=== PATIENT | female | born 1980 | race Hispanic/Latino ===

== ENCOUNTER 2018-05-22 05:36 | Observation (INO) | payer BC ==
[~2018-05-22] VITALS: Ht 160 cm; Wt 84.0 kg
--- OUTSIDE RECORDS SUMMARY | 2018-05-22 05:40 | XMS REPORT ---
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 Info Not Available Non Drug Allergy Encounters Encounter Location Date patient here for sick visit,complains of High blood pressure [facility] Feb 14, 2015 patient here to go over abnormal lab results [facility] Feb 21, 2015 Referral [facility] Apr 22, 2015 Patient here with complaints of esr infection [facility] Jun 06, 2015 patient here for a ER follow up [facility] September 04, 2014 question [facility] November 22, 2014 Patient here for a follow up on sx from gallbladder [facility] November 22, 2014 Problems Problem Type Condition ICD-9 Code Onset Dates Condition Status Problem Hypertension 401.9 Active Problem Hx laparoscopic cholecystectomy V45.89 Active Problem Ovarian cyst 620.2 Active Problem Blood in right ear canal H92.21 Active Problem Hypertension I10 Active Problem Otitis media H66.90 Active Problem Stress at work V62.1 Active Problem Cholecystitis with cholelithiasis 574.10 Active Problem Dizziness 780.4 Active Problem Muscle cramps 729.82 Active Assessment Otitis media H66.90 Active Problem Other malaise and fatigue 780.79 Active Assessment Hypertension I10 Active Problem Obesity (BMI 30.0-34.9) 278.00 Active Assessment Blood in right ear canal H92.21 Active Problem BMI 33.0-33.9,adult V85.33 Active Medications Medication Code System Code Instructions Start Date End Date Status Dosage HydrOXYzine HCl [facility] [address]-85 10 mg Orally three times a day (tid) as needed (prn) Feb 14, 2015 Active as directed [facility] [address]-15 500-125 MG Orally every 12 hrs Jun 06, 2015 Jun 16, 2015 Active as directed Lisinopril-Hydrochlorothiazide [facility] [address]-90 25-20 MG Orally Once a day September 04, 2014 Active 1 tablet Social History Social History Element Qualifiers Date Reported Tobacco Use: . Are you a: never smoker Jun 06, 2015 Use of recreational / street drugs? . Answer: No Jun 06, 2015 Do you have pets? . Status: No Jun 06, 2015 Marital Status: . Single Jun 06, 2015 Caffeine intake? . Status: Yes, What type: Coffee, How often? Daily Jun 06, 2015 New since last visit: none. Jun 06, 2015 Do you exercise? . Answer: Yes, Type: Brian, How often? Weekly Jun 06, 2015 Do you drink alcohol? . Status: Yes, Type: Beer, How often? Once per month Jun 06, 2015 Family history Qualifier Description Comment Date Reported Maternal Grandmother Comment not available Jun 06, 2015 Paternal Grandmother Comment not available Jun 06, 2015 Siblings Comment not available Jun 06, 2015 Maternal Grandfather Comment not available Jun 06, 2015 Children Comment not available Jun 06, 2015 Father alive Comment not available Jun 06, 2015 Paternal Grandfather Comment not available Jun 06, 2015 Mother alive Comment not available Jun 06, 2015 Other: Comment not available Jun 06, 2015 Vital Signs Date/Time: Jun 06, 2015 Weight 204.5 lbs Height 68 in Temperature 98.5 F Cardiac Monitoring Heart Rate 92 /min Blood Pressure Diastolic 89 mm Hg Blood Pressure Systolic 138 mm Hg Summary Purpose [employer] Submission
--- OUTSIDE RECORDS SUMMARY | 2018-05-22 05:40 | XMS REPORT ---
Author Author Joy Mac Organization [employer] Address Unknown Phone Unavailable Care Team Providers Care Jewelry Sales Coordinator Name Role Phone Gerber Macjiha Unavailable Allergies, Adverse Reactions, Alerts Substance Reaction Event Type N.K.D.A. Info Not Available Non Drug Allergy Problems Problem Type Condition Code Onset Dates Condition Status Assessment Dyspnea on exertion R06.09 Active Assessment Essential hypertension I10 Active Assessment Other insomnia G47.09 Active Problem Blood in right ear canal H92.21 Active Assessment Anxiety F41.9 Active Problem Otitis media H66.90 Active Assessment Acute cystitis without hematuria N30.00 Active Problem Left knee pain M25.562 Active Problem Low vitamin D level E55.9 Active Problem Anxiety F41.9 Active Problem Essential hypertension I10 Active Problem Dyspnea on exertion R06.09 Active Problem BMI 33.0-33.9,adult V85.33 Active Problem Obesity (BMI 30.0-34.9) 278.00 Active Problem Other insomnia G47.09 Active Problem Other malaise and fatigue 780.79 Active Problem Tinea corporis B35.4 Active Problem Hyperlipidemia E78.5 Active Problem BMI 30.0-30.9,adult Z68.30 Active Problem Obesity (BMI 30-39.9) E66.9 Active Problem Hx laparoscopic cholecystectomy V45.89 Active Problem Cholecystitis with cholelithiasis 574.10 Active Problem Hypertension 401.9 Active Problem Ovarian cyst 620.2 Active Problem Dizziness 780.4 Active Problem Hypertension I10 Active Problem Stress at work V62.1 Active Problem Muscle cramps 729.82 Active Medications Medication Code System Code Instructions Start Date End Date Status Dosage Paroxetine HCl [facility] [address]-08 20 MG Orally Once a day November 30, 2016 Active 1 tablet in the morning Bactrim DS [facility] [address]-62 800-160 MG Orally Twice a day November 30, 2016 December 05, 2016 Active 1 tablet Pyridium [facility] [address]-88 200 MG Orally Three times a day November 30, 2016 December 02, 2016 Active 1 tablet after meals Lisinopril-Hydrochlorothiazide [facility] [address]-91 25-20 MG Orally Once a day Active 1 tablet Vital Signs Date/Time: November 30, 2016 BMI 31.20 Index Weight 205.2 lbs Height 68 in Temperature 98.4 F Cardiac Monitoring Heart Rate 80 /min Blood Pressure Diastolic 87 mm Hg Blood Pressure Systolic 137 mm Hg Results No Known Results Summary Purpose [employer] Submission
--- OUTSIDE RECORDS SUMMARY | 2018-05-22 05:40 | XMS REPORT | Continuity of Care Document ---
Author Author [facility] Interface Address Unknown Phone Unavailable Problems Problem Status Onset Date Classification Date Reported Comments Source Body mass index 25-29 - overweight 02/06/2018 Diagnosis 02/06/2018 [facility] Posterior rhinorrhea 02/06/2018 Diagnosis 02/06/2018 [facility] Cough 02/06/2018 Diagnosis 02/06/2018 [facility] Essential hypertension 02/06/2018 Diagnosis 02/06/2018 [facility] Acute pharyngitis 02/06/2018 Diagnosis 02/06/2018 [facility] Hypertensive Disorder 02/06/2018 Problem 02/06/2018 [facility] Upper respiratory infection 05/08/2017 Diagnosis 05/08/2017 [facility] Feeling feverish 05/08/2017 Diagnosis 05/08/2017 [facility] Pain in throat 05/08/2017 Diagnosis 05/08/2017 [facility] ACUTE CHOLECYSTITIS Active 11/26/2014 Condition 11/26/2014 [facility] ACUTE CHOLECYSTITIS Active 11/15/2014 [facility] A[facility] PAIN Active 11/15/2014 [facility] Discharge Diagnosis: UTI 08/25/2014 08/27/2014 [facility] Discharge Diagnosis: Dysuria 08/25/2014 08/27/2014 [facility] ABDOMINAL PAIN - GENERAL* Active 08/24/2014 [facility] Cyst, ovarian Resolved Problem 11/20/2014 [facility] HTN (<span [id number]</span>) Resolved Problem 11/20/2014 [facility] Hypertension Resolved Problem 11/20/2014 [facility] Dyspnea on exertion Active Diagnosis 12/01/2016 [facility] Primary Essential hypertension Active Diagnosis 12/01/2016 [facility] Primary Other insomnia Active Diagnosis 12/01/2016 [facility] Primary Blood in right ear canal Active Problem 12/01/2016 [facility] Primary Anxiety Active Diagnosis 12/01/2016 [facility] Primary Otitis media Active Problem 12/01/2016 [facility] Primary Acute cystitis without hematuria Active Diagnosis 12/01/2016 [facility] Primary Left knee pain Active Problem 12/01/2016 [facility] Primary Low vitamin D level Active Problem 12/01/2016 [facility] Primary BMI 33.0-33.9,adult Active Problem 12/01/2016 [facility] Primary Obesity Active Problem 12/01/2016 [facility] Primary Other malaise and fatigue Active Problem 12/01/2016 [facility] Primary Tinea corporis Active Problem 12/01/2016 [facility] Primary Hyperlipidemia Active Problem 12/01/2016 [facility] Primary BMI 30.0-30.9,adult Active Problem 12/01/2016 [facility] Primary Obesity Active Problem 12/01/2016 [facility] Primary Hx laparoscopic cholecystectomy Active Problem 12/01/2016 [facility] Cholecystitis with cholelithiasis Active Problem 12/01/2016 [facility] Primary Hypertension Active Problem 12/01/2016 [facility] Primary Ovarian cyst Active Problem 12/01/2016 [facility] Primary Dizziness Active Problem 12/01/2016 [facility] Primary Hypertension Active Problem 12/01/2016 [facility] Primary Stress at work Active Problem 12/01/2016 [facility] Primary Muscle cramps Active Problem 12/01/2016 [facility] Primary Leukocytosis Active Diagnosis 03/09/2015 [facility] Primary UTI Active Diagnosis 03/09/2015 [facility] Primary Hypokalemia Active Diagnosis 08/26/2015 [facility] Primary Rash Active Diagnosis 02/07/2016 [facility] Primary Vaginal discharge Active Diagnosis 06/24/2016 [facility] Primary CHOLECYSTITIS NOS Active [facility] Medications Medication Details Route Status Patient Instructions Ordering Provider Order Date Source Paroxetine HCl 1 tablet in the morning Orally Active 20 MG Orally Once a day Bubba 11/30/2016 [facility] Bactrim DS 1 tablet Orally Active 800-160 MG Orally Twice a day Bubba 11/30/2016 [facility] Pyridium 1 tablet after meals Orally Active 200 MG Orally Three times a day Bubba 11/30/2016 [facility] Pyridium 1 tablet after meals Orally Active 100 MG Orally Three times a day Bubba 06/23/2016 [facility] Ciprofloxacin HCl 1 tablet Orally Active 500 MG Orally Twice a day Bubba 06/23/2016 [facility] Metronidazole 1 tablet Orally Active 500 MG Orally Twice a day Bubba 06/23/2016 [facility] Ketoconazole 1 application to affected area Externally Active 2 % Externally Once a day Bubba 06/23/2016 [facility] Hydrocortisone 1 application to affected area Externally Active 2.5 % Externally Twice a day Bubba 02/06/2016 [facility] Primary Ergocalciferol 1 capsule Orally Active 59245 UNIT Orally Once a week Bubba 02/06/2016 [facility] Paroxetine HCl 1 tablet in the morning Orally Active 10 mg Orally Once a day [facility] 08/25/2015 [facility] Amoxicillin-Pot Clavulanate as directed Orally Active 500-125 MG Orally every 12 hrs [facility] 06/06/2015 [facility] Bactrim DS 1 tablet Orally Active 800-160 MG Orally twice a day (bid) [facility] 03/08/2015 [facility] Robaxin 1 tablet Orally Active 500 mg Orally three times a day (tid) as needed (prn) [facility] 02/14/2015 [facility] HydrOXYzine HCl as directed Orally Active 10 mg Orally three times a day (tid) as needed (prn) [facility] 02/14/2015 [facility] HydrOXYzine HCl as directed Orally Active 25 MG Orally three times a day (tid) as needed (prn) [facility] 02/14/2015 [facility] LISINOPRIL 20 MG TABS 1 tablet daily Active 11/26/2014 [facility] HYDROCHLOROTHIAZIDE 25 MG TABS 1 tablet daily Active 11/26/2014 [facility] ciprofloxacin 500 mg oral tablet 500 mg=1 tab, PO, Q12H, for UTI, X 3 day, # 6 tab, 0 Refill(s)Special Instructions: for UTI Active 11/17/2014 [facility] pantoprazole 40 mg oral enteric coated tablet 40 mg=1 tab, PO, Before Dinner, # 30 tab, 0 Refill(s) Active 11/17/2014 [facility] lisinopril 20 mg oral tablet 20 mg=1 tab, PO, Daily, # 30 tab, 0 Refill(s) Active 11/17/2014 [facility] Hydrochlorothiazide 25 MG Oral Tablet 25 mg=1 tab, PO, Daily, # 30 tab, 0 Refill(s) Active 11/17/2014 [facility] acetaminophen 325 mg oral tablet 650 mg=2 tab, PO, Q6H, PRN Pain Score 1-3, 0 Refill(s) Active 11/17/2014 [facility] docusate sodium 100 mg oral capsule 100 mg=1 cap, PO, BID, 0 Refill(s) Active 11/17/2014 [facility] tramadol hydrochloride 50 MG Oral Tablet 50 mg=1 tab, PO, Q6H, PRN Pain Score 4-6, # 24 tab, 0 Refill(s) Active 11/17/2014 [facility] Tramadol 50 mg, 1 tab, Route: PO, Drug form: TAB, Q6H, Dosing Weight 102.4, kg, PRN Pain Score 1-3, Start date: 11/17/14 10:55:00, Duration: 30 day, Stop date: 12/17/14 10:54:00Notes: Not to exceed 400mg/day. (Same As: Ultram) Inactive 11/17/2014 [facility] Acetaminophen 325 MG / Hydrocodone Bitartrate 10 MG Oral Tablet [Winigan 10/325] 1 tab, Route: PO, Drug Form: TAB, Dosing Weight 102.4, kg, Q6H, PRN Pain Score 4-6, Start date: 11/17/14 10:54:00, Duration: 30 day, Stop date: 12/17/14 10:53:00Notes: Do not exceed 4gm/day of acetaminophen. (Same as: Winigan 325/10) Inactive 11/17/2014 [facility] Tylenol 650 mg, 2 tab, Route: PO, Drug form: TAB, Q6H, Dosing Weight 102.4, kg, PRN Pain Score 1-3, Start date: 11/17/14 10:54:00, Duration: 30 day, Stop date: 12/17/14 10:53:00Notes: Do not exceed 4 gm/day. (Same as: Tylenol) Inactive 11/17/2014 [facility] potassium chloride 40 mEq, 2 tab, Route: PO, Drug form: ERTAB, ONCE, Dosing Weight 102.4, kg, Start date: 11/17/14 9:38:00, Stop date: 11/17/14 9:38:00Notes: (Same as: K-Dur 20) "Do Not Crush" With food and full glass of water Inactive 11/17/2014 [facility] Prinivil 20 mg, 1 tab, Route: PO, Drug form: TAB, Daily, Start date: 11/17/14 9:00:00, Duration: 30 day, Stop date: 12/16/14 9:00:00Notes: (Same as: Prinivil, Zestril) Inactive 11/17/2014 [facility] Microzide 25 mg, 1 tab, Route: PO, Drug form: TAB, Daily, Start date: 11/17/14 9:00:00, Duration: 30 day, Stop date: 12/16/14 9:00:00Notes: (Same as: Hydrodiuril) With food. Inactive 11/17/2014 [facility] Ofirmev 1,000 mg, 100 mL, Route: IV, Drug form: INJ, Q6H, Dosing Weight 102.4, kg, for > or=50 kg, Start date: 11/16/14 18:00:00, Duration: 1 day, Stop date: 11/17/14 12:00:00Notes: Infuse over 15 minutes Do not exceed 4gm/day of acetaminophen MEDICATION WASTE Product Size: 1000 mg Product Wasted: ___ mg No Longer Active 11/16/2014 [facility] docusate sodium 100 mg oral capsule 100 mg, 1 cap, Route: PO, Drug form: CAP, BID, Dosing Weight 102.4, kg, Start date: 11/16/14 17:00:00, Duration: 30 day, Stop date: 12/16/14 9:00:00Notes: (Same as: Colace) (Do Not Crush) No Longer Active 11/16/2014 [facility] Protonix 40 mg, 1 tab, Route: PO, Drug form: ECTAB, Before Dinner, Dosing Weight 102.4, kg, Start date: 11/16/14 16:30:00, Duration: 30 day, Stop date: 12/15/14 16:30:00Notes: Tablet should not be chewed or crushed. (Same as: Protonix) No Longer Active 11/16/2014 [facility] Ondansetron 4 mg, 2 mL, Route: IVP, Drug form: INJ, ONCE, Dosing Weight 102.4, kg, PRN Nausea & Vomiting, Start date: 11/16/14 12:56:00Notes: (Same as: Zofran) MEDICATION WASTE Product Size: 4 mg Product Wasted: ___ mg Inactive 11/16/2014 [facility] Diphenhydramine 12.5 mg, 0.25 mL, Route: IVP, Drug form: INJ, Q6H, Dosing Weight 102.4, kg, PRN Itching, Start date: 11/16/14 12:56:00, Duration: 30 day, Stop date: 12/16/14 12:55:00Notes: (Same as: Benadryl) Inactive 11/16/2014 [facility] Promethazine 6.25 mg, 0.25 mL, Route: IVPB, ONCE, Dosing Weight 102.4, kg, PRN Nausea & Vomiting, Start date: 11/16/14 12:56:00Notes: Do not give IV push. (Same as: Phenergan) Inactive 11/16/2014 [facility] Meperidine 12.5 mg, 0.25 mL, Route: IVP, Drug form: INJ, Q30Min, Dosing Weight 102.4, kg, PRN Other -See Comment, For shivering, Start date: 11/16/14 12:56:00, Duration: 2 doses or times, Stop date: Limited # of timesNotes: (Same As: Demerol) Inactive 11/16/2014 [facility] Flumazenil 0.2 mg, 2 mL, Route: IVP, Drug form: INJ, PRN, Dosing Weight 102.4, kg, PRN Benzodiazepine Reversal, Initial dose, Start date: 11/16/14 12:56:00, Duration: 30 day, Stop date: 12/16/14 12:55:00Notes: (Same as: Romazicon) Inactive 11/16/2014 [facility] Fentanyl 25 microgram, 0.5 mL, Route: IVP, Drug form: INJ, Q5Min, Dosing Weight 102.4, kg, PRN Pain Score 4-6, Start date: 11/16/14 12:56:00, Duration: 4 doses or times, Stop date: Limited # of timesNotes: (Same as: Sublimaze) Preservative free. Inactive 11/16/2014 [facility] Ketorolac 30 mg, 1 mL, Route: IVP, Drug form: INJ, ONCE, Dosing Weight 102.4, kg, Start date: 11/16/14 12:56:00, Duration: 1 doses or times, Stop date: 11/16/14 12:56:00Notes: (Same as:Toradol) IV bolus must be given >15 seconds. Give IM administration slowly and deeply into the muscle. Not for use > 4 days MEDICATION WASTE Product Size: 30 mg Product Wasted: ___ mg Inactive 11/16/2014 [facility] Naloxone 0.04 mg, 0.1 mL, Route: IVP, Drug form: INJ, Q2MIN, Dosing Weight 102.4, kg, PRN Narcotic Reversal, Start date: 11/16/14 12:56:00, Duration: 8 doses or times, Stop date: Limited # of timesNotes: Same as Narcan Inactive 11/16/2014 [facility] Hydromorphone 0.5 mg, 0.5 mL, Route: IVP, Drug form: INJ, Q5Min, Dosing Weight 102.4, kg, PRN Pain Score 7-10, Start date: 11/16/14 12:56:00, Duration: 4 doses or times, Stop date: Limited # of times Inactive 11/16/2014 [facility] Morphine 2 mg, 1 mL, Route: IVP, Drug form: INJ, Q5Min, Dosing Weight 102.4, kg, PRN Pain Score 4-6, Start date: 11/16/14 12:56:00, Duration: 5 doses or times, Stop date: Limited # of timesNotes: (Same as:MOR Phine Sulfate) Inactive 11/16/2014 [facility] Oxycodone Hydrochloride 1 MG/ML Oral Solution 10 mg, 10 mL, Route: NG, Drug form: LIQ, Q4H, Dosing Weight 102.4, kg, PRN Pain Score 7- 10, Start date: 11/16/14 12:56:00, Duration: 30 day, Stop date: 12/16/14 12:55:00Notes: (Same as: 'Roxicodone) Inactive 11/16/2014 [facility] Calcium Chloride 0.0014 MEQ/ML / Potassium Chloride 0.004 MEQ/ML / Sodium Chloride 0.103 MEQ/ML / Sodium Lactate 0.028 MEQ/ML Injectable Solution 1,000 mL, Rate: 125 ml/hr, Infuse over: 8 hr, Route: IV, Dosing Weight 102.4 kg, Total Volume: 1,000, Start date: 11/16/14 12:56:00, Duration: 30 day, Stop date: 12/16/14 12:55:00 Inactive 11/16/2014 [facility] Oxycodone 10 mg, 2 tab, Route: PO, Drug form: TAB, Q4H, Dosing Weight 102.4, kg, PRN Pain Score 7-10, Start date: 11/16/14 12:56:00, Duration: 30 day, Stop date: 12/16/14 12:55:00Notes: (Same as: Roxicodone) Inactive 11/16/2014 [facility] Acetaminophen 1,000 mg, 100 mL, Route: IVPB, Drug form: INJ, ONCE, Dosing Weight 102.4, kg, PRN Pain Score 1-3, Start date: 11/16/14 12:56:00, Duration: 1 doses or times, Stop date: Limited # of timesNotes: Infuse over 15 minutes Do not exceed 4gm/day of acetaminophen MEDICATION WASTE Product Size: 1000 mg Product Wasted: ___ mg Inactive 11/16/2014 [facility] Sodium Chloride 0.154 MEQ/ML Injectable Solution 1,000 mL, Rate: 125 ml/hr, Infuse over: 8 hr, Route: IV, Dosing Weight 102.4 kg, Total Volume: 1,000, Start date: 11/16/14 12:37:00, Duration: 30 day, Stop date: 12/16/14 12:36:00 No Longer Active 11/16/2014 [facility] Saline Flush 0.9% 10 ml, Route: IVP, Drug Form: INJ, Dosing Weight 102.4, kg, PRN, PRN Line Flush, Start date: 11/16/14 12:37:00, Duration: 30 day, Stop date: 12/16/14 12:36:00Notes: (Same as: BD Posiflush) No Longer Active 11/16/2014 [facility] Morphine 2 mg, 1 mL, Route: IVP, Drug form: INJ, Q3H, Dosing Weight 102.4, kg, PRN Pain Score 4-6, Start date: 11/16/14 12:37:00, Duration: 30 day, Stop date: 12/16/14 12:36:00Notes: (Same as:MORPhine Sulfate) No Longer Active 11/16/2014 [facility] Ondansetron 4 mg, 2 mL, Route: IVP, Drug form: INJ, Q6H, Dosing Weight 102.4, kg, PRN Nausea & Vomiting, Start date: 11/16/14 12:37:00, Duration: 30 day, Stop date: 12/16/14 12:36:00Notes: (Same as: Zofran) MEDICATION WASTE Product Size: 4 mg Product Wasted: ___ mg No Longer Active 11/16/2014 [facility] Acetaminophen 325 MG / Hydrocodone Bitartrate 5 MG Oral Tablet 1 tab, Route: PO, Drug Form: TAB, Dosing Weight 102.4, kg, Q4H, PRN Pain Score 1-3, Start date: 11/16/14 12:37:00, Duration: 30 day, Stop date: 12/16/14 12:36:00Notes: (Same as: Winigan 325/5) Do not exceed 4gm/day of acetaminophen. No Longer Active 11/16/2014 [facility] Ciprofloxacin 400 mg, 200 mL, Route: IVPB, Drug form: INJ, [id number], Dosing Weight 99.091, kg, Priority: Routine, Start date: 11/16/14 12:00:00, Duration: 1 day, Stop date: 11/17/14 0:00:00Notes: Do not refrigerate No Longer Active 11/16/2014 [facility] Lovenox 40 mg, 0.4 mL, Route: SUB-Q, Drug form: INJ, [id number], Dosing Weight 102.4, kg, Start date: 11/16/14 12:00:00, Duration: 30 day, Stop date: 12/15/14 12:00:00Notes: (Same as: Lovenox) No Longer Active 11/16/2014 [facility] Cefoxitin 2 gm, Route: IVPB, ONCE, Dosing Weight 102.4, kg, Start date: 11/16/14 11:30:00, Stop date: 11/16/14 11:30:00 Inactive 11/16/2014 [facility] Prinivil 10 mg, 1 tab, Route: PO, Drug form: TAB, Daily, Start date: 11/16/14 9:00:00, Duration: 30 day, Stop date: 12/15/14 9:00:00Notes: (Same as: Prinivil, Zestril) Inactive 11/16/2014 [facility] Microzide 12.5 mg, 1 cap, Route: PO, Drug form: CAP, Daily, Start date: 11/16/14 9:00:00, Duration: 30 day, Stop date: 12/15/14 9:00:00Notes: (Same as: Microzide) With food. Inactive 11/16/2014 [facility] Hydrochlorothiazide 12.5 MG / Lisinopril 10 MG Oral Tablet 1 tab, Route: PO, Drug Form: TAB, Dosing Weight 99.091, kg, Daily, Start date: 11/16/14 9:00:00, Duration: 30 day, Stop date: 12/15/14 9:00:00 Inactive 11/16/2014 [facility] Flagyl 500 mg, 100 mL, Route: IVPB, Drug form: INJ, Q8H, Dosing Weight 99.091, kg, Priority: Routine, Start date: 11/16/14 8:00:00, Duration: 1 day, Stop date: 11/17/14 0:00:00Notes: (Same as: Flagyl) Avoid alcohol. No Longer Active 11/16/2014 [facility] Morphine 4 mg, 2 mL, Route: IVP, Drug form: INJ, Q4H, Dosing Weight 99.091, kg, PRN Pain Score 7-10, Start date: 11/16/14 3:16:00, Duration: 30 day, Stop date: 12/16/14 3:15:00Notes: (Same as:MORPhine Sulfate) No Longer Active 11/16/2014 [facility] Ondansetron 4 mg, 2 mL, Route: IVP, Drug form: INJ, Q8H, Dosing Weight 99.091, kg, PRN Nausea & Vomiting, Start date: 11/16/14 3:16:00, Duration: 30 day, Stop date: 12/16/14 3:15:00Notes: (Same as: Zofran) MEDICATION WASTE Product Size: 4 mg Product Wasted: ___ mg No Longer Active 11/16/2014 [facility] Sodium Chloride 0.154 MEQ/ML Injectable Solution 1,000 mL, Rate: 125 ml/hr, Infuse over: 8 hr, Route: IV, Dosing Weight 99.091 kg, Total Volume: 1,000, Start date: 11/16/14 3:16:00, Duration: 30 day, Stop date: 12/16/14 3:15:00 No Longer Active 11/16/2014 [facility] Saline Flush 0.9% 10 ml, Route: IVP, Drug Form: INJ, Dosing Weight 99.091, kg, PRN, PRN Line Flush, Start date: 11/16/14 3:16:00, Duration: 30 day, Stop date: 12/16/14 3:15:00Notes: (Same as: BD Posiflush) No Longer Active 11/16/2014 [facility] Ciprofloxacin 400 mg, Route: IVPB, ONCE, Dosing Weight 99.091, kg, Priority: STAT, Start date: 11/15/14 23:40:00, Stop date: 11/15/14 23:40:00 No Longer Active 11/16/2014 [facility] Metronidazole 500 mg, 100 mL, Route: IVPB, Drug form: INJ, ONCE, Dosing Weight 99.091, kg, Priority: STAT, Start date: 11/15/14 23:40:00, Stop date: 11/15/14 23:40:00Notes: (Same as: Flagyl) Avoid alcohol. No Longer Active 11/16/2014 [facility] Ondansetron 4 mg, 2 mL, Route: IVP, Drug form: INJ, ONCE, Dosing Weight 99.091, kg, Priority: STAT, Start date: 11/15/14 21:09:00, Stop date: 11/15/14 21:09:00Notes: (Same as: Zofran) MEDICATION WASTE Product Size: 4 mg Product Wasted: ___ mg Inactive 11/16/2014 [facility] Famotidine 20 mg, 2 mL, Route: IVP, Drug form: INJ, ONCE, Dosing Weight 99.091, kg, Priority: STAT, Start date: 11/15/14 21:09:00, Stop date: 11/15/14 21:09:00Notes: (Same as: Pepcid) Can be dilute in 5-10cc NS IVP: Slow IV push over at least 2 minutes. Inactive 11/16/2014 [facility] Morphine 4 mg, 2 mL, Route: IVP, Drug form: INJ, ONCE, Dosing Weight 99.091, kg, Priority: STAT, Start date: 11/15/14 21:09:00, Stop date: 11/15/14 21:09:00Notes: (Same as:MORPhine Sulfate) Inactive 11/16/2014 [facility] Sodium Chloride 0.154 MEQ/ML Injectable Solution 1,000 mL, 1000 ml/hr, Infuse Over: 1 hr, Route: IV, 1,000, Drug form: INJ, ONCE, Priority: STAT, Dosing Weight 99.091 kg, Start date: 11/15/14 21:09:00, Duration: 1 doses or times, Stop date: 11/15/14 21:09:00 Inactive 11/16/2014 [facility] Saline Flush 0.9% 10 mL, Route: IVP, Drug Form: INJ, Dosing Weight 99.091, kg, PRN, PRN Line Flush, Start date: 11/15/14 21:09:00, Duration: 30 day, Stop date: 12/15/14 21:08:00Notes: (Same as: BD Posiflush) No Longer Active 11/16/2014 [facility] Lisinopril-Hydrochlorothiazide 1 tablet Orally Active 25-20 MG Orally Once a day [facility] 09/04/2014 [facility] Nitrofurantoin 100 MG Oral Capsule [Macrodantin] 100 mg=1 cap, PO, QID, # 40 cap, 0 Refill(s) Active 08/25/2014 [facility] Amlodipine 5 MG Oral Tablet amlodipine 5 mg tablet TAKE ONE (1) TABLET(S) BY MOUTH ONCE A DAY. Active [facility] benzonatate 200 MG Oral Capsule benzonatate 200 mg capsule Take 1 capsule 3 times a day by oral route as needed. Active [facility] Cholecalciferol 28222 UNT Oral Capsule cholecalciferol (vitamin D3) 50,000 unit capsule TAKE ONE (1) CAPSULE(S) BY MOUTH EVERY WEEK. Active [facility] Levothyroxine Sodium 0.05 MG Oral Tablet levothyroxine 50 mcg tablet TAKE ONE (1) TABLET(S) BY MOUTH ONCE A DAY. Active [facility] Brompheniramine Maleate 0.4 MG/ML / Dextromethorphan Hydrobromide 2 MG/ML / Pseudoephedrine Hydrochloride 6 MG/ML Oral Solution [Bromfed DM] Bromfed DM 2 mg-30 mg-10 mg/5 mL syrup Take 10 mL every 4 hours by oral route as needed for 10 days. Active [facility] desogestrel-e.estradiol 0.15 mg-0.02 mg(21)/e.estrad 0.01 mg(5) tablet desogestrel-e.estradiol 0.15 mg-0.02 mg(21)/e.estrad 0.01 mg(5) tablet TAKE ONE (1) TABLET(S) BY MOUTH ONCE A DAY. Active [facility] Lidocaine Hydrochloride 20 MG/ML Mucous Membrane Topical Solution Lidocaine Viscous 2 % mucosal solution Take 15 mL every 6 hours by oral route as needed for 7 days. Active [facility] Lisinopril-Hydrochlorothiazide 1 tablet Orally Active 25-20 MG Orally Once a day [facility] Lupron Depot Unknown NA Active [facility] Paroxetine HCl 1 tablet in the morning Orally Active 20 mg Orally Once a day [facility] Lisinopril-Hydrochlorothiazide TAKE ONE (1) TABLET(S) BY MOUTH ONCE A DAY. NA Active 20-25 MG [facility] HydrOXYzine HCl as directed Orally Active 25 MG Orally three times a day (tid) as needed (prn) [facility] Lisinopril-Hydrochlorothiazide 1 tablet Orally Active 25-20 MG Orally Once a day [facility] Allergies, Adverse Reactions, Alerts Substance Category Reaction Severity Reaction type Status Date Reported Comments Source N.K.D.A. Adverse Reaction Info Not Available Adverse Reaction Active 11/30/2016 [facility] Immunizations Immunization Date Given Site Status Last Updated Comments Source Tdap 01/26/2017 completed [facility] FLU SHOT 3 & UP 06/23/2016 [facility] Rocephin 02/21/2015 completed [facility] Results Order Name Results Value Reference Range Date Interpretation Comments Source Influenza A negative 02/06/2018 [facility] Influenza B negative 02/06/2018 [facility] RESULT negative 02/06/2018 [facility] SWAB LOCATION Left and Right tonsillar pillars 02/06/2018 [facility] RESULT negative 05/08/2017 [facility] SWAB LOCATION Left and Right tonsillar pillars 05/08/2017 [facility] Influenza A negative 05/08/2017 [facility] Influenza B negative 05/08/2017 [facility] CHEM PANEL Phosphorus 1.7 mg/dL 2.5 - 4.5 11/17/2014 [facility] CHEM PANEL Magnesium Lvl 2.1 mg/dL 1.8 - 2.4 11/17/2014 [facility] ELECTROLYTES Chloride Lvl 105 meq/L 95 - 109 11/17/2014 [facility] ELECTROLYTES Sodium Lvl 137 meq/L 135 - 145 11/17/2014 [facility] ELECTROLYTES Potassium Lvl 3.2 meq/L 3.5 - 5.1 11/17/2014 [facility] ELECTROLYTES eGFR 115 mL/min/1.73m2 11/17/2014 1Result Comment: The eGFR is calculated using the CKD-EPI formula. In most young, healthy individuals the eGFR will be >90 mL/min/1.73m2. The eGFR declines with age. An eGFR of 60-89 may be normal in some populations, particularly the elderly, for whom the CKD-EPI formula has not been extensively validated. Use of the eGFR is not recommended in the following populations: Individuals with unstable creatinine concentrations, including patients and those with serious co-morbid conditions. Patients with extremes in muscle mass or diet. The data above are obtained from the National Kidney Disease Education Program (NKDEP) which additionally recommends that when the eGFR is used in patients with extremes of body mass index for purposes of drug dosing, the eGFR should be multiplied by the estimated BMI. [facility] ELECTROLYTES Total Protein 6.4 g/dL 6.4 - 8.4 11/17/2014 [facility] ELECTROLYTES ALT 79 unit/L 0 - 65 11/17/2014 [facility] ELECTROLYTES Creatinine Lvl 0.7 mg/dL 0.5 - 1.4 11/17/2014 [facility] ELECTROLYTES BUN 6 mg/dL 7 - 22 11/17/2014 [facility] ELECTROLYTES CO2 24 meq/L 24 - 32 11/17/2014 [facility] ELECTROLYTES Calcium Lvl 7.4 mg/dL 8.5 - 10.5 11/17/2014 [facility] ELECTROLYTES AGAP 11.2 meq/L 10.0 - 20.0 11/17/2014 [facility] ELECTROLYTES Glucose Lvl 100 mg/dL 70 - 99 11/17/2014 3Interpretive Data: Adult reference range values reflect the clinical guidelines of the [place] [employer]. [facility] ELECTROLYTES Globulin 3.3 g/dL 2.0 - 4.0 11/17/2014 [facility] ELECTROLYTES A/G Ratio 0.9 0.7 - 1.6 11/17/2014 [facility] ELECTROLYTES Albumin Lvl 3.1 g/dL 3.5 - 5.0 11/17/2014 [facility] ELECTROLYTES Bili Total 1.6 mg/dL 0.2 - 1.3 11/17/2014 [facility] ELECTROLYTES B/C Ratio 9 6 - 25 11/17/2014 [facility] ELECTROLYTES Alk Phos 41 unit/L 39 - 136 11/17/2014 [facility] ELECTROLYTES AST 27 unit/L 0 - 37 11/17/2014 [facility] HEMATOLOGY Monocytes # 0.7 K/CMM 0.0 - 0.8 11/17/2014 [facility] HEMATOLOGY Basophils 0.2 % 0.0 - 1.0 11/17/2014 [facility] HEMATOLOGY Eosinophils 0.1 % 0.0 - 4.0 11/17/2014 [facility] HEMATOLOGY Lymphocytes # 1.9 K/CMM 1.0 - 5.5 11/17/2014 [facility] HEMATOLOGY Segs-Bands # 10.7 K/CMM 1.5 - 8.1 11/17/2014 [facility] HEMATOLOGY Monocytes 5.5 % 2.0 - 12.0 11/17/2014 [facility] HEMATOLOGY Lymphocytes 14.5 % 20.0 - 40.0 11/17/2014 [facility] HEMATOLOGY Segs 79.7 % 45.0 - 75.0 11/17/2014 [facility] HEMATOLOGY MPV 9.6 fL 7.4 - 10.4 11/17/2014 [facility] HEMATOLOGY Platelet 177 K/CMM 133 - 450 11/17/2014 [facility] HEMATOLOGY MCV 93.7 fL 80.0 - 98.0 11/17/2014 [facility] HEMATOLOGY Hct 33.9 % 36.0 - 48.0 11/17/2014 [facility] HEMATOLOGY MCH 32.1 pg 27.0 - 31.0 11/17/2014 [facility] HEMATOLOGY RDW 13.6 % 11.5 - 14.5 11/17/2014 [facility] HEMATOLOGY MCHC 34.3 g/dL 32.0 - 36.0 11/17/2014 [facility] HEMATOLOGY Hgb 11.6 g/dL 12.0 - 16.0 11/17/2014 [facility] HEMATOLOGY RBC 3.62 M/CMM 4.20 - 5.40 11/17/2014 [facility] HEMATOLOGY WBC 13.4 K/CMM 3.7 - 10.4 11/17/2014 [facility] LIPIDS Chol 92 mg/dL <=199 mg/dL 11/17/2014 [facility] LIPIDS Trig 62 mg/dL <=149 mg/dL 11/17/2014 [facility] LIPIDS VLDL 12 11/17/2014 [facility] LIPIDS LDL (Calculated) 24 mg/dL <=99 mg/dL 11/17/2014 [facility] LIPIDS CHD Risk 1.64 3.90 - 5.80 11/17/2014 [facility] LIPIDS HDL 56 mg/dL >=61 mg/dL 11/17/2014 [facility] SPECIAL CHEMISTRY Hgb A1C 5.9 % <=5.6 % 11/17/2014 [facility] THYROID PANEL TSH 1.310 uIU/mL 0.360 - 3.740 11/17/2014 [facility] CHEM PANEL Amylase Lvl 27 unit/L 25 - 115 11/16/2014 [facility] CHEM PANEL Lipase Lvl 134 unit/L 73 - 393 11/16/2014 [facility] CHEM PANEL AST 16 unit/L 0 - 37 11/16/2014 [facility] CHEM PANEL Alk Phos 50 unit/L 39 - 136 11/16/2014 [facility] CHEM PANEL Glucose Lvl 116 mg/dL 70 - 99 11/16/2014 4Interpretive Data: Adult reference range values reflect the clinical guidelines of the [place] [employer]. [facility] CHEM PANEL Bili Total 1.1 mg/dL 0.2 - 1.3 11/16/2014 [facility] CHEM PANEL BUN 8 mg/dL 7 - 22 11/16/2014 [facility] CHEM PANEL Total Protein 8.5 g/dL 6.4 - 8.4 11/16/2014 [facility] CHEM PANEL ALT 33 unit/L 0 - 65 11/16/2014 [facility] CHEM PANEL eGFR 121 mL/min/1.73m2 11/16/2014 2Result Comment: The eGFR is calculated using the CKD-EPI formula. In most young, healthy individuals the eGFR will be >90 mL/min/1.73m2. The eGFR declines with age. An eGFR of 60-89 may be normal in some populations, particularly the elderly, for whom the CKD-EPI formula has not been extensively validated. Use of the eGFR is not recommended in the following populations: Individuals with unstable creatinine concentrations, including patients and those with serious co-morbid conditions. Patients with extremes in muscle mass or diet. The data above are obtained from the National Kidney Disease Education Program (NKDEP) which additionally recommends that when the eGFR is used in patients with extremes of body mass index for purposes of drug dosing, the eGFR should be multiplied by the estimated BMI. [facility] CHEM PANEL Potassium Lvl 3.7 meq/L 3.5 - 5.1 11/16/2014 [facility] CHEM PANEL Sodium Lvl 137 meq/L 135 - 145 11/16/2014 [facility] CHEM PANEL Creatinine Lvl 0.6 mg/dL 0.5 - 1.4 11/16/2014 [facility] CHEM PANEL Albumin Lvl 4.1 g/dL 3.5 - 5.0 11/16/2014 [facility] CHEM PANEL Chloride Lvl 104 meq/L 95 - 109 11/16/2014 [facility] CHEM PANEL CO2 23 meq/L 24 - 32 11/16/2014 [facility] CHEM PANEL Calcium Lvl 8.6 mg/dL 8.5 - 10.5 11/16/2014 [facility] CHEM PANEL A/G Ratio 0.9 0.7 - 1.6 11/16/2014 [facility] CHEM PANEL Globulin 4.4 g/dL 2.0 - 4.0 11/16/2014 [facility] CHEM PANEL B/C Ratio 13 6 - 25 11/16/2014 [facility] CHEM PANEL AGAP 13.7 meq/L 10.0 - 20.0 11/16/2014 [facility] HEMATOLOGY Monocytes # 0.7 K/CMM 0.0 - 0.8 11/16/2014 [facility] HEMATOLOGY Basophils # 0.1 K/CMM 0.0 - 0.2 11/16/2014 [facility] HEMATOLOGY Basophils 0.3 % 0.0 - 1.0 11/16/2014 [facility] HEMATOLOGY Monocytes 3.2 % 2.0 - 12.0 11/16/2014 [facility] HEMATOLOGY Lymphocytes # 1.2 K/CMM 1.0 - 5.5 11/16/2014 [facility] HEMATOLOGY Segs 91.4 % 45.0 - 75.0 11/16/2014 [facility] HEMATOLOGY Lymphocytes 5.1 % 20.0 - 40.0 11/16/2014 [facility] HEMATOLOGY Segs-Bands # 21.1 K/CMM 1.5 - 8.1 11/16/2014 [facility] HEMATOLOGY WBC 23.1 K/CMM 3.7 - 10.4 11/16/2014 [facility] HEMATOLOGY RBC 4.66 M/CMM 4.20 - 5.40 11/16/2014 [facility] HEMATOLOGY Hgb 14.8 g/dL 12.0 - 16.0 11/16/2014 [facility] HEMATOLOGY MCV 92.3 fL 80.0 - 98.0 11/16/2014 [facility] HEMATOLOGY MCH 31.8 pg 27.0 - 31.0 11/16/2014 [facility] HEMATOLOGY MCHC 34.5 g/dL 32.0 - 36.0 11/16/2014 [facility] HEMATOLOGY Hct 43.0 % 36.0 - 48.0 11/16/2014 [facility] HEMATOLOGY MPV 9.6 fL 7.4 - 10.4 11/16/2014 [facility] HEMATOLOGY RDW 13.6 % 11.5 - 14.5 11/16/2014 [facility] HEMATOLOGY Platelet 224 K/CMM 133 - 450 11/16/2014 [facility] URINE AND STOOL UA Color Red 11/16/2014 [facility] URINE AND STOOL UA Urobilinogen <=1.0 mg/dL 0.1 - 1.0 11/16/2014 [facility] URINE AND STOOL UA Leuk Est Moderate *ABN* (11/15/14 9:50 PM) Negative 11/16/2014 [facility] URINE AND STOOL UA Nitrite Negative (11/15/14 9:50 PM) Negative 11/16/2014 [facility] URINE AND STOOL UA Blood Large *ABN* (11/15/14 9:50 PM) Negative 11/16/2014 [facility] URINE AND STOOL UA Bili Negative *NA* (11/15/14 9:50 PM) Negative 11/16/2014 [facility] URINE AND STOOL UA Bacteria Occasional /HPF None Seen /HPF 11/16/2014 [facility] URINE AND STOOL UA RBC null 0 - 2 11/16/2014 [facility] URINE AND STOOL UA WBC 48 /HPF 0 - 5 11/16/2014 [facility] URINE AND STOOL UA Sq Epi Occasional /LPF Few /LPF 11/16/2014 [facility] URINE AND STOOL UA Protein 100 mg/dL Negative mg/dL 11/16/2014 [facility] URINE AND STOOL UA pH 7.0 5.0 - 8.0 11/16/2014 [facility] URINE AND STOOL UA Spec Grav 1.003 <=1.030 11/16/2014 [facility] URINE AND STOOL UA Turbidity Clear (11/15/14 9:50 PM) Clear 11/16/2014 [facility] URINE AND STOOL UA Ketones Negative mg/dL Negative mg/dL 11/16/2014 [facility] URINE AND STOOL UA Glucose Negative mg/dL Negative mg/dL 11/16/2014 [facility] URINE CHEM U Preg Negative (11/15/14 9:50 PM) Negative 11/16/2014 [facility] Abdomen RUQ US Abdomen RUQ US PROCEDURE: Abdomen RUQ US REASON FOR EXAM: See Clinic Indication CLINICAL INFORMATION Abdominal pain, acute COMPARISON: None. TECHNIQUE: Grayscale and limited color sonographic evaluation of the right upper quadrant of the abdomen and gallbladder region was performed with standard technique. FINDINGS: LIVER: The visualized liver shows normal size, contour, and morphology with increased parenchymal echo texture. BILE DUCTS: The intrahepatic and extrahepatic bile ducts are not dilated with the common bile duct measuring 4 mm. The distal common bile duct is not well seen. GALLBLADDER: Gallstone with slight gallbladder wall thickening. PANCREAS: The pancreas body is normal, the head and tail are obscured by bowel gas. KIDNEY: The right kidney measures 12.2 x 5.5 x 6.0 cm in length. The right renal cortical thickness measures 1.1 cm. There is normal renal contour and morphology, with normal parenchymal echotexture. There is no hydronephrosis. AORTA AND INFERIOR VENA CAVA: Not well seen. ASCITES: There is no right upper quadrant abdominal ascites. IMPRESSION: 1. Cholelithiasis with a thickened gallbladder wall. Consider a HIDA scan to assess for cholecystitis. 2. Echogenic liver secondary to fatty infiltration or hepatocellular disease. SL: 14 11/15/2014 - - Read by: Yung Monson MD Dictated Date/time: 11/15/14 22:09 Electronically Signed by: Yung Monson MD 11/15/14 22:12 FINAL REPORT [facility] URINE AND STOOL UA Urobilinogen <=1.0 mg/dL 0.1 - 1.0 08/25/2014 [facility] URINE AND STOOL UA Color Ltyellow 08/25/2014 [facility] URINE AND STOOL UA Nitrite Negative (08/25/14 1:04 AM) Negative 08/25/2014 [facility] URINE AND STOOL UA Sq Epi Occasional /LPF Few /LPF 08/25/2014 [facility] URINE AND STOOL UA Leuk Est Trace *ABN* (08/25/14 1:04 AM) Negative 08/25/2014 [facility] URINE AND STOOL UA RBC 7 /HPF 0 - 2 08/25/2014 [facility] URINE AND STOOL UA WBC 9 /HPF 0 - 5 08/25/2014 [facility] URINE AND STOOL UA Blood Negative (08/25/14 1:04 AM) Negative 08/25/2014 [facility] URINE AND STOOL UA Ketones Negative mg/dL Negative mg/dL 08/25/2014 [facility] URINE AND STOOL UA Bili Negative *NA* (08/25/14 1:04 AM) Negative 08/25/2014 [facility] URINE AND STOOL UA pH 6.0 5.0 - 8.0 08/25/2014 [facility] URINE AND STOOL UA Glucose 50 mg/dL Negative mg/dL 08/25/2014 [facility] URINE AND STOOL UA Protein 30 mg/dL Negative mg/dL 08/25/2014 [facility] URINE AND STOOL UA Turbidity Clear (08/25/14 1:04 AM) Clear 08/25/2014 [facility] URINE AND STOOL UA Spec Grav 1.016 <=1.030 08/25/2014 [facility] URINE CHEM U Preg Negative (08/25/14 1:04 AM) Negative 08/25/2014 [facility] Vital Signs Vital Sign Value Date Comments Source Diastolic (mm Hg) 80 02/06/2018 [facility] Height 68 02/06/2018 [facility] Systolic (mm Hg) 122 02/06/2018 [facility] Weight 183 02/06/2018 [facility] Diastolic (mm Hg) 88 05/08/2017 [facility] Height 68 05/08/2017 [facility] Systolic (mm Hg) 128 05/08/2017 [facility] Weight 200 05/08/2017 [facility] Weight 205.2 11/30/2016 [facility] Primary Height 68 11/30/2016 [facility] Primary Temperature Oral (F) 98.4 F 11/30/2016 [facility] Primary Heart Rate 80 11/30/2016 [facility] Primary Diastolic (mm Hg) 87 11/30/2016 [facility] Primary Systolic (mm Hg) 137 11/30/2016 [facility] Primary Weight 203.0 08/27/2016 [facility] Primary Height 68 08/27/2016 [facility] Primary Temperature Oral (F) 97.8 F 08/27/2016 [facility] Primary Heart Rate 72 08/27/2016 [facility] Primary Diastolic (mm Hg) 75 08/27/2016 [facility] Primary Systolic (mm Hg) 133 08/27/2016 [facility] Primary Weight 207.3 06/23/2016 [facility] Primary Height 68 06/23/2016 [facility] Primary Temperature Oral (F) 98.1 F 06/23/2016 [facility] Primary Heart Rate 103 06/23/2016 [facility] Primary Diastolic (mm Hg) 98 06/23/2016 [facility] Primary Systolic (mm Hg) 150 06/23/2016 [facility] Primary Weight 200.2 02/06/2016 [facility] Primary Height 68 02/06/2016 [facility] Primary Temperature Oral (F) 98.3 F 02/06/2016 [facility] Primary Heart Rate 74 02/06/2016 [facility] Primary Diastolic (mm Hg) 90 02/06/2016 [facility] Primary Systolic (mm Hg) 132 02/06/2016 [facility] Primary Weight 200.7 01/02/2016 [facility] Primary Height 68 01/02/2016 [facility] Primary Temperature Oral (F) 97.9 F 01/02/2016 [facility] Primary Heart Rate 76 01/02/2016 [facility] Primary Diastolic (mm Hg) 80 01/02/2016 [facility] Primary Systolic (mm Hg) 125 01/02/2016 [facility] Primary Weight 196.9 09/05/2015 [facility] Primary Height 68 09/05/2015 [facility] Primary Temperature Oral (F) 98.4 F 09/05/2015 [facility] Primary Heart Rate 88 09/05/2015 [facility] Primary Diastolic (mm Hg) 91 09/05/2015 [facility] Primary Systolic (mm Hg) 131 09/05/2015 [facility] Primary Weight 195.6 08/25/2015 [facility] Primary Height 68 08/25/2015 [facility] Primary Temperature Oral (F) 98.4 F 08/25/2015 [facility] Primary Heart Rate 82 08/25/2015 [facility] Primary Diastolic (mm Hg) 93 08/25/2015 [facility] Primary Systolic (mm Hg) 134 08/25/2015 [facility] Primary Weight 200.8 08/11/2015 [facility] Primary Height 68 08/11/2015 [facility] Primary Temperature Oral (F) 98.6 F 08/11/2015 [facility] Primary Heart Rate 73 08/11/2015 [facility] Primary Diastolic (mm Hg) 83 08/11/2015 [facility] Primary Systolic (mm Hg) 128 08/11/2015 [facility] Primary Weight 204.5 06/06/2015 [facility] Primary Height 68 06/06/2015 [facility] Primary Temperature Oral (F) 98.5 F 06/06/2015 [facility] Primary Heart Rate 92 06/06/2015 [facility] Primary Diastolic (mm Hg) 89 06/06/2015 [facility] Primary Systolic (mm Hg) 138 06/06/2015 [facility] Primary Weight 205.3 02/21/2015 [facility] Primary Height 68 02/21/2015 [facility] Primary Temperature Oral (F) 98.6 F 02/21/2015 [facility] Primary Heart Rate 89 02/21/2015 [facility] Primary Diastolic (mm Hg) 92 02/21/2015 [facility] Primary Systolic (mm Hg) 145 02/21/2015 [facility] Primary Weight 204.1 02/14/2015 [facility] Primary Height 68 02/14/2015 [facility] Primary Temperature Oral (F) 98.6 F 02/14/2015 [facility] Primary Heart Rate 93 02/14/2015 [facility] Primary Diastolic (mm Hg) 91 02/14/2015 [facility] Primary Systolic (mm Hg) 137 02/14/2015 [facility] Primary Height 68 11/26/2014 [facility] Weight 210 11/26/2014 [facility] Temperature Oral (F) 98.9 F 11/26/2014 [facility] Heart Rate 105 11/26/2014 [facility] Systolic (mm Hg) 152 11/26/2014 [facility] Diastolic (mm Hg) 95 11/26/2014 [facility] Temperature Oral (F) 98.6 F 11/17/2014 [facility] Heart Rate 81 11/17/2014 [facility] Respitory Rate 20 11/17/2014 [facility] Diastolic (mm Hg) 86 11/17/2014 [facility] Systolic (mm Hg) 137 11/17/2014 [facility] Systolic (mm Hg) 136 11/17/2014 [facility] Diastolic (mm Hg) 77 11/17/2014 [facility] Respitory Rate 20 11/17/2014 [facility] Heart Rate 79 11/17/2014 [facility] Temperature Oral (F) 98.6 F 11/17/2014 [facility] Respitory Rate 16 11/17/2014 [facility] Heart Rate 73 11/17/2014 [facility] Temperature Oral (F) 98.3 F 11/17/2014 [facility] Systolic (mm Hg) 108 11/17/2014 [facility] Diastolic (mm Hg) 70 11/17/2014 [facility] Height 172.72 cm 11/16/2014 [facility] Weight 102.4 11/16/2014 [facility] BMI Calculated 34.33 11/16/2014 [facility] Height 172.72 cm 11/16/2014 [facility] BMI Calculated 33.22 11/16/2014 [facility] Weight 99.091 11/16/2014 [facility] Height 172.72 cm 11/16/2014 [facility] Temperature Oral (F) 98.7 F 08/25/2014 [facility] Heart Rate 98 08/25/2014 [facility] Respitory Rate 18 08/25/2014 [facility] Systolic (mm Hg) 179 08/25/2014 [facility] Diastolic (mm Hg) 72 08/25/2014 [facility] Temperature Oral (F) 98.7 F 08/25/2014 [facility] Systolic (mm Hg) 184 08/25/2014 [facility] Diastolic (mm Hg) 93 08/25/2014 [facility] Respitory Rate 20 08/25/2014 [facility] Heart Rate 107 08/25/2014 [facility] Respitory Rate 22 08/25/2014 [facility] Heart Rate 105 08/25/2014 [facility] Systolic (mm Hg) 186 08/25/2014 [facility] Diastolic (mm Hg) 108 08/25/2014 [facility] Weight 90.909 08/25/2014 [facility] BMI Calculated 31.39 08/25/2014 [facility] Height 170.18 cm 08/25/2014 [facility] Encounters Location Location Details Encounter Type Encounter Number Reason For Visit Attending Provider ADM Date DC Date Status Source [facility] [id number] Jhony Miller 08/25/2014 08/25/2014 [facility] Primary Care patient here for a ER follow up [id number] 09/04/2014 09/04/2014 [facility] Primary Care patient here for a ER follow up [id number] 09/04/2014 09/04/2014 [facility] Primary Care patient here for a ER follow up [id number] 09/04/2014 09/04/2014 [facility] Primary Care patient here for a ER follow up [id number] 09/04/2014 09/04/2014 [facility] Primary Care patient here for a ER follow up [id number] 09/04/2014 09/04/2014 [facility] Primary Care patient here for a ER follow up [id number] 09/04/2014 09/04/2014 [facility] Primary Care patient here for a ER follow up [id number] 09/04/2014 09/04/2014 [facility] Primary Care patient here for a ER follow up [id number] 09/04/2014 09/04/2014 [facility] Primary Care patient here for a ER follow up [id number] 09/04/2014 09/04/2014 [facility] Primary Care patient here for a ER follow up [id number] 09/04/2014 09/04/2014 [facility] Primary Care patient here for a ER follow up [id number] 09/04/2014 09/04/2014 [facility] OBS Observation Patient [id number] Joy Mac 11/15/2014 11/17/2014 [facility] Primary Care Patient here for a follow up on sx from gallbladder [id number] 11/22/2014 11/22/2014 [facility] Primary Care Patient here for a follow up on sx from gallbladder [id number] 11/22/2014 11/22/2014 [facility] Patient here for a follow up on sx from gallbladder [id number] 11/22/2014 11/22/2014 [facility] Patient here for a follow up on sx from gallbladder [id number] 11/22/2014 11/22/2014 [facility] Patient here for a follow up on sx from gallbladder [id number] 11/22/2014 11/22/2014 [facility] Patient here for a follow up on sx from gallbladder [id number] 11/22/2014 11/22/2014 [facility] Patient here for a follow up on sx from gallbladder [id number] 11/22/2014 11/22/2014 [facility] Patient here for a follow up on sx from gallbladder [id number] 11/22/2014 11/22/2014 [facility] Patient here for a follow up on sx from gallbladder [id number] 11/22/2014 11/22/2014 [facility] Patient here for a follow up on sx from gallbladder [id number] 11/22/2014 11/22/2014 [facility] Patient here for a follow up on sx from gallbladder [id number] 11/22/2014 11/22/2014 [facility] question [id number] 11/22/2014 11/22/2014 [facility] question [id number] 11/22/2014 11/22/2014 [facility] question [id number] 11/22/2014 11/22/2014 [facility] question [id number] 11/22/2014 11/22/2014 [facility] question [id number] 11/22/2014 11/22/2014 [facility] question [id number] 11/22/2014 11/22/2014 [facility] question [id number] 11/22/2014 11/22/2014 [facility] question [id number] 11/22/2014 11/22/2014 [facility] question [id number] 11/22/2014 11/22/2014 [facility] question [id number] 11/22/2014 11/22/2014 [facility] question [id number] 11/22/2014 11/22/2014 [facility] General Surgery 350 Office Visit [id number] Luis A Waters MD 11/26/2014 11/26/2014 [facility] patient here for sick visit,complains of High blood pressure [id number] 02/14/2015 02/14/2015 [facility] patient here for sick visit,complains of High blood pressure [id number] 02/14/2015 02/14/2015 [facility] patient here for sick visit,complains of High blood pressure [id number] 02/14/2015 02/14/2015 [facility] patient here for sick visit,complains of High blood pressure [id number] 02/14/2015 02/14/2015 [facility] patient here for sick visit,complains of High blood pressure [id number] 02/14/2015 02/14/2015 [facility] patient here for sick visit,complains of High blood pressure [id number] 02/14/2015 02/14/2015 [facility] patient here for sick visit,complains of High blood pressure [id number] 02/14/2015 02/14/2015 [facility] patient here for sick visit,complains of High blood pressure [id number] 02/14/2015 02/14/2015 [facility] patient here for sick visit,complains of High blood pressure [id number] 02/14/2015 02/14/2015 [facility] patient here for sick visit,complains of High blood pressure [id number] 02/14/2015 02/14/2015 [facility] patient here for sick visit,complains of High blood pressure [id number] 02/14/2015 02/14/2015 [facility] patient here to go over abnormal lab results [id number] 02/21/2015 02/21/2015 [facility] patient here to go over abnormal lab results [id number] 02/21/2015 02/21/2015 [facility] patient here to go over abnormal lab results [id number] 02/21/2015 02/21/2015 [facility] patient here to go over abnormal lab results [id number] 02/21/2015 02/21/2015 [facility] patient here to go over abnormal lab results [id number] 02/21/2015 02/21/2015 [facility] patient here to go over abnormal lab results [id number] 02/21/2015 02/21/2015 [facility] patient here to go over abnormal lab results [id number] 02/21/2015 02/21/2015 [facility] patient here to go over abnormal lab results [id number] 02/21/2015 02/21/2015 [facility] patient here to go over abnormal lab results [id number] 02/21/2015 02/21/2015 [facility] patient here to go over abnormal lab results [id number] 02/21/2015 02/21/2015 [facility] Referral [id number] 04/23/2015 04/23/2015 [facility] Referral [id number] 04/23/2015 04/23/2015 [facility] Referral [id number] 04/23/2015 04/23/2015 [facility] Referral [id number] 04/23/2015 04/23/2015 [facility] Referral [id number] 04/23/2015 04/23/2015 [facility] Referral [id number] 04/23/2015 04/23/2015 [facility] Referral [id number] 04/23/2015 04/23/2015 [facility] Referral [id number] 04/23/2015 04/23/2015 [facility] Referral [id number] 04/23/2015 04/23/2015 [facility] Patient here with complaints of esr infection [id number] 06/06/2015 06/06/2015 [facility] Patient here with complaints of esr infection [id number] 06/06/2015 06/06/2015 [facility] Patient here with complaints of esr infection [id number] 06/06/2015 06/06/2015 [facility] Patient here with complaints of esr infection [id number] 06/06/2015 06/06/2015 [facility] Patient here with complaints of esr infection [id number] 06/06/2015 06/06/2015 [facility] Patient here with complaints of esr infection [id number] 06/06/2015 06/06/2015 [facility] Patient here with complaints of esr infection [id number] 06/06/2015 06/06/2015 [facility] Patient here with complaints of esr infection [id number] 06/06/2015 06/06/2015 [facility] Patient here with knee fracture [id number] 08/11/2015 08/11/2015 [facility] Patient here with knee fracture [id number] 08/11/2015 08/11/2015 [facility] Patient here with knee fracture [id number] 08/11/2015 08/11/2015 [facility] Patient here with knee fracture [id number] 08/11/2015 08/11/2015 [facility] Patient here with knee fracture [id number] 08/11/2015 08/11/2015 [facility] Patient here with knee fracture [id number] 08/11/2015 08/11/2015 [facility] Patient here with knee fracture [id number] 08/11/2015 08/11/2015 [facility] Patient here to follow up with High blood pressure [id number] 08/25/2015 08/25/2015 [facility] Patient here to follow up with High blood pressure [id number] 08/25/2015 08/25/2015 [facility] Patient here to follow up with High blood pressure [id number] 08/25/2015 08/25/2015 [facility] Patient here to follow up with High blood pressure [id number] 08/25/2015 08/25/2015 [facility] Patient here to follow up with High blood pressure [id number] 08/25/2015 08/25/2015 [facility] Patient here to follow up with High blood pressure [id number] 08/25/2015 08/25/2015 [facility] Patient here for a follow up [id number] 09/05/2015 09/05/2015 [facility] Patient here for a follow up [id number] 09/05/2015 09/05/2015 [facility] Patient here for a follow up [id number] 09/05/2015 09/05/2015 [facility] Patient here for a follow up [id number] 09/05/2015 09/05/2015 [facility] Patient here for a follow up [id number] 09/05/2015 09/05/2015 [facility] patient here for physical [id number] 01/02/2016 01/02/2016 [facility] patient here for physical [id number] 01/02/2016 01/02/2016 [facility] patient here for physical [id number] 01/02/2016 01/02/2016 [facility] patient here for physical [id number] 01/02/2016 01/02/2016 [facility] patien t here to follow up on medication [id number] 02/06/2016 02/06/2016 [facility] patien t here to follow up on medication [id number] 02/06/2016 02/06/2016 [facility] patien t here to follow up on medication [id number] 02/06/2016 02/06/2016 [facility] patient here with complaints of a UTI [id number] 06/23/2016 06/23/2016 [facility] patient here with complaints of a UTI [id number] 06/23/2016 06/23/2016 [facility] Patient here for medication refill [id number] 08/27/2016 08/27/2016 [facility] [place] [facility] - [id number] JAY TorresP-C: [address] [place] [address], Ph. [id number] Clarence Levy 05/08/2017 [facility] [place] [facility] [id number] Gold Muhammad PA-C: [address], [place] [address], Ph. [id number] Gold Muhammad 02/06/2018 [facility] Procedures Procedure Code Date Perfomer Comments Source Cholecystectomy [facility]
--- OUTSIDE RECORDS SUMMARY | 2018-05-22 05:40 | XMS REPORT ---
Author Author Joy Mac Organization [employer] Address Unknown Phone Unavailable Care Team Providers Care Weft Straightener Name Role Phone Joy Mac Unavailable Allergies, Adverse Reactions, Alerts Substance Reaction Event Type N.K.D.A. Info Not Available Non Drug Allergy Encounters Encounter Location Date patient here for sick visit,complains of High blood pressure [facility] Feb 14, 2015 patient here to go over abnormal lab results [facility] Feb 21, 2015 Referral [facility] Apr 22, 2015 Patient here with complaints of esr infection [facility] Jun 06, 2015 patient here for a ER follow up [facility] September 04, 2014 question [facility] November 22, 2014 Patient here for a follow up on sx from gallbladder [facility] November 22, 2014 Patient here for a follow up [facility] September 05, 2015 Patient here with knee fracture [facility] Aug 11, 2015 Patient here to follow up with High blood pressure [facility] Aug 25, 2015 Problems Problem Type Condition ICD-9 Code Onset Dates Condition Status Problem Hx laparoscopic cholecystectomy V45.89 Active Problem Stress at work V62.1 Active Problem Cholecystitis with cholelithiasis 574.10 Active Problem Left knee pain M25.562 Active Problem Otitis media H66.90 Active Problem Anxiety F41.9 Active Problem Dizziness 780.4 Active Problem Muscle cramps 729.82 Active Problem Blood in right ear canal H92.21 Active Problem Hypertension I10 Active Assessment Anxiety F41.9 Active Problem Obesity (BMI 30.0-34.9) 278.00 Active Problem BMI 33.0-33.9,adult V85.33 Active Assessment Hypertension I10 Active Problem Hypertension 401.9 Active Problem Other malaise and fatigue 780.79 Active Problem Ovarian cyst 620.2 Active Medications Medication Code System Code Instructions Start Date End Date Status Dosage Lisinopril-Hydrochlorothiazide [facility] [address]-84 25-20 MG Orally Once a day Active 1 tablet HydrOXYzine HCl [facility] [address]-18 25 MG Orally three times a day (tid) as needed (prn) Active as directed Par[facility] [address]-18 10 mg Orally Once a day Aug 25, 2015 Active 1 tablet in the morning Lupron Depot [facility] [address]-91 Active Unknown [facility] [address]-30 20 MG Orally Once a day Active 1 tablet in the morning Social History Social History Element Qualifiers Date Reported Tobacco Use: . Are you a: never smoker September 05, 2015 Use of recreational / street drugs? . Answer: No September 05, 2015 Do you have pets? . Status: No September 05, 2015 Marital Status: . Single September 05, 2015 Caffeine intake? . Status: Yes, What type: Coffee, How often? Daily September 05, 2015 New since last visit: none. September 05, 2015 Do you exercise? . Answer: Yes, Type: Brian, How often? Weekly September 05, 2015 Do you drink alcohol? . Status: Yes, Type: Beer, How often? Once per month September 05, 2015 Vital Signs Date/Time: September 05, 2015 Weight 196.9 lbs Height 68 in Temperature 98.4 F Cardiac Monitoring Heart Rate 88 /min Blood Pressure Diastolic 91 mm Hg Blood Pressure Systolic 131 mm Hg Summary Purpose [employer] Submission
--- OUTSIDE RECORDS SUMMARY | 2018-05-22 05:40 | XMS REPORT | Summary of Care ---
Author Organization Unknown Address Unknown Phone Unavailable Encounter [facility] Tim(JESSICA) [id number] Date(s): 08/25/14 - 08/25/14 [facility] [address] [place] [address]- [phone] Discharge Diagnosis: UTI (urinary tract infection) Discharge Diagnosis: Dysuria Discharge Disposition: Home Physician Attending: Jhony Miller MD Vital Signs 1 2 3 Most recent to oldest [Reference Range]: 170.18 cm (08/25/14 12:35 AM) Height 98.7 DegF (08/25/14 2:32 AM) 98.7 DegF (08/25/14 2:27 AM) Temperature Oral [96.4-99.1 DegF] 179/72 mmHg *HI* (08/25/14 2:32 AM) 184/93 mmHg *HI* (08/25/14 2:27 AM) 186/108 mmHg *HI* (08/25/14 12:35 AM) Blood Pressure [90-140/60-90 mmHg] 18 BRMIN (08/25/14 2:32 AM) 20 BRMIN (08/25/14 2:27 AM) 22 BRMIN *HI* (08/25/14 12:35 AM) Respiratory Rate [14-20 BRMIN] 98 bpm (08/25/14 2:32 AM) 107 bpm *HI* (08/25/14 2:27 AM) 105 bpm *HI* (08/25/14 12:35 AM) Peripheral Pulse Rate [60-100 bpm] 90.909 kg (08/25/14 12:35 AM) Weight 31.39 m2 (08/25/14 12:35 AM) Body Mass Index Problem List No data available for this section Allergies, Adverse Reactions, Alerts Substance Reaction Severity Status NKDA Active Medications Macrodantin 100 mg oral capsule 100 mg=1 cap, PO, QID, # 40 cap, 0 Refill(s) Start Date: 08/25/14 Stop Date: 09/04/14 Status: Ordered Results URINE CHEM Most recent to 1 oldest [Reference Range]: U Preg [Negative] Negative (08/25/14 1:04 AM) URINE AND STOOL Most recent to 1 oldest [Reference Range]: UA Turbidity [Clear] Clear (08/25/14 1:04 AM) UA Color Ltyellow *NA* (08/25/14 1:04 AM) UA pH [5.0-8.0] 6.0 (08/25/14 1:04 AM) UA Spec Grav 1.016 [<=1.030] (08/25/14 1:04 AM) UA Glucose [Negative 50 mg/dL mg/dL] *ABN* (08/25/14 1:04 AM) UA Blood [Negative] Negative (08/25/14 1:04 AM) UA Ketones [Negative Negative mg/dL mg/dL] *NA* (08/25/14 1:04 AM) UA Protein [Negative 30 mg/dL mg/dL] *ABN* (08/25/14 1:04 AM) UA Urobilinogen <=1.0 mg/dL [0.1-1.0 mg/dL] *NA* (08/25/14 1:04 AM) UA Bili [Negative] Negative *NA* (08/25/14 1:04 AM) UA Leuk Est Trace [Negative] *ABN* (08/25/14 1:04 AM) UA Nitrite Negative [Negative] (08/25/14 1:04 AM) UA WBC [0-5 /HPF] 9 /HPF *HI* (08/25/14 1:04 AM) UA RBC [0-2 /HPF] 7 /HPF *HI* (08/25/14 1:04 AM) UA Sq Epi [Few /LPF] Occasional /LPF *NA* (08/25/14 1:04 AM) Immunizations No data available for this section Procedures No data available for this section Social History Social History Type Response Smoking Status Unknown if ever smoked; Exposure to Tobacco Smoke None; Cigarette Smoking Last 365 Days No; Reg Smoking Cessation Counseling No Assessment and Plan No data available for this section
--- OUTSIDE RECORDS SUMMARY | 2018-05-22 05:40 | XMS REPORT ---
Author Author Joy Mac Organization [employer] Address Unknown Phone Unavailable Care Team Providers Care Sign Language Translator Name Role Phone Bubba Joy Unavailable Allergies, Adverse Reactions, Alerts Substance Reaction Event Type N.K.D.A. Info Not Available Non Drug Allergy Encounters Encounter Location Date patient here for sick visit,complains of High blood pressure [facility] Feb 14, 2015 patient here to go over abnormal lab results [facility] Feb 21, 2015 Referral [facility] Apr 22, 2015 Patient here with complaints of esr infection [facility] Jun 06, 2015 patient here for a ER follow up [facility] September 04, 2014 question [facility] November 22, 2014 Patient here for a follow up on sx from gallbladder [facility] November 22, 2014 Patient here with knee fracture [facility] Aug 11, 2015 Problems Problem Type Condition ICD-9 Code Onset Dates Condition Status Problem Ovarian cyst 620.2 Active Problem Cholecystitis with cholelithiasis 574.10 Active Problem Hx laparoscopic cholecystectomy V45.89 Active Problem Otitis media H66.90 Active Problem Blood in right ear canal H92.21 Active Problem Left knee pain M25.562 Active Problem Muscle cramps 729.82 Active Problem Stress at work V62.1 Active Problem Hypertension I10 Active Problem Dizziness 780.4 Active Problem Other malaise and fatigue 780.79 Active Problem Obesity (BMI 30.0-34.9) 278.00 Active Assessment Hypertension I10 Active Problem BMI 33.0-33.9,adult V85.33 Active Assessment Left knee pain M25.562 Active Problem Hypertension 401.9 Active Medications Medication Code System Code Instructions Start Date End Date Status Dosage HydrOXYzine HCl [facility] [address]-15 10 mg Orally three times a day (tid) as needed (prn) Feb 14, 2015 Active as directed Lisinopril-Hydrochlorothiazide [facility] [address]-06 25-20 MG Orally Once a day September 04, 2014 Active 1 tablet Social History Social History Element Qualifiers Date Reported Tobacco Use: . Are you a: never smoker Aug 11, 2015 Use of recreational / street drugs? . Answer: No Aug 11, 2015 Do you have pets? . Status: No Aug 11, 2015 Marital Status: . Single Aug 11, 2015 Caffeine intake? . Status: Yes, What type: Coffee, How often? Daily Aug 11, 2015 New since last visit: none. Aug 11, 2015 Do you exercise? . Answer: Yes, Type: Brian, How often? Weekly Aug 11, 2015 Do you drink alcohol? . Status: Yes, Type: Beer, How often? Once per month Aug 11, 2015 Vital Signs Date/Time: Aug 11, 2015 Weight 200.8 lbs Height 68 in Temperature 98.6 F Cardiac Monitoring Heart Rate 73 /min Blood Pressure Diastolic 83 mm Hg Blood Pressure Systolic 128 mm Hg Summary Purpose [employer] Submission
--- OUTSIDE RECORDS SUMMARY | 2018-05-22 05:40 | XMS REPORT | Encounter Summary ---
Author Organization Unknown Address [address] [place] [id number] Phone [phone] Reason for Visit Medical Complaint Instructions 1. Acute pharyngitis sore throat: care instructions Lidocaine Viscous 2 % mucosal solution culture, respiratory rapid strep group A, throat rapid flu (A+B) 2. Cough cough: care instructions Bromfed DM 2 mg-30 mg-10 mg/5 mL syrup 3. Posterior rhinorrhea 4. Essential hypertension high blood pressure: care instructions 5. Body mass index 25-29 - overweight body mass index: care instructions Discussion Note discussed with patient to monitor for fever and any change in symptoms, return to clinic or follow up with pcp. continue tylenol or ibuprofen for discomfort. patient verbalized understanding. advised patient to see PCP for elevated Blood Pressure. Any chest pain, shortness of breath,palpitations, or if blood pressure increased go to the emergency room immediately Plan of Care Reminders Provider Appointments None recorded. Lab Culture, Respiratory 02/06/2018 [facility] Rapid Strep Group a, Throat 02/06/2018 [facility] Rapid Flu (A+B) 02/06/2018 [facility] Referral None recorded. Procedures None recorded. Surgeries None recorded. Imaging None recorded. Medications Name Start Date Bromfed DM 2 mg-30 mg-10 mg/5 mL syrup Take 10 mL every 4 hours by oral route as needed for 10 days. desogestrel-e.estradiol 0.15 mg-0.02 mg(21)/e.estrad 0.01 mg(5) tablet TAKE ONE (1) TABLET(S) BY MOUTH ONCE A DAY. Lidocaine Viscous 2 % mucosal solution Take 15 mL every 6 hours by oral route as needed for 7 days. Medications Administered None recorded. Vitals Height Weight BMI Blood Pressure 5 ft 8 in 183 lbs 27.8 kg/m2 (1) 120/90 mm[Hg] (2) 122/80 mm[Hg] Lab Results Date Name Specimen Result Interpretation Description Value Range Status Address Rapid Flu (A+B) Influenza a negative [facility]: [facility] Influenza B negative [facility]: [address] [place] [address] Rapid Strep Group a, Throat Result negative [facility]: [address] [place] [address] Swab Location Left and Right tonsillar pillars [facility]: [address] [place] [address] Allergies Code Code System Name Reaction Severity Status Onset NKDA Problems Name Status Onset Date Source Hypertensive Disorder Active 02/06/2018 Procedures Date Name Performed by Cholecystectomy Information not available Vaccine List Vaccine Type Tdap 01/26/2017 Social History Smoking Status Never Smoker Past Encounters 02/06/2018 Acute Pharyngitis; Cough; Posterior Rhinorrhea; Essential Hypertension; Body Mass Index 25-29 - Overweight Gold Muhammad PA-C: [address] [place] [address], Ph. History of Present Illness Throat-Oral Complaint Reported By: Patient HPI: Location: throat. Quality: sore throat, dry or hacking cough. Severity: mild. Duration: 2 days. Onset/Timing: sudden. Context: no foreign travel, non-smoker, sick contact. Modifying factors: OTC medication. Associated Symptoms: no fever, no headache, no body aches, no sputum production, no shortness of breath, no wheezing, no change in number of pillows needed to sleep at night, no sweats, no significant weight gain, no significant weight loss, no morning cough, no vomiting, no diarrhea, no rash, no nausea, fever, sore throat Review of Systems Basic Reported By: Patient Constitutional: Constitutional: fever; subjective Eyes: Eyes: no eye complaints Otlx-Decn-Yvydd-Throat: Ears: no ear complaints. Nose: no nose/sinus problems. Mouth/Throat: no bleeding gums, no mouth complaints, no teeth problems, sore throat Cardiovascular: Cardiovascular: no chest pain, no shortness of breath, no known heart murmur Respiratory: Respiratory: no wheezing, no shortness of breath, cough Gastrointestinal: Gastrointestinal: no abdominal pain, no vomiting / diarrhea Genitourinary: Genitourinary: no urinary complaints, no discharge Musculoskeletal: Musculoskeletal: no muscle aches, no muscle weakness, no arthralgias/joint pain, no back pain Skin: Skin: no abnormal / changing mole, no jaundice, no rashes Neurologic: Neurologic: no loss of consciousness, no weakness, no numbness, no seizures, no dizziness, no headaches Physical Exam Adult Basic Reported By: Patient Constitutional: General Appearance: healthy-appearing, well-nourished, well-developed. Level of Distress: NAD. Ambulation: ambulating normally Psychiatric: Mental Status: active and alert. Orientation: to time, to place, to person Eyes: Lids and Conjunctivae: non-injected, no discharge, no pallor. Pupils: PERRLA. EOM: EOMI. Sclerae: non-icteric. Vision: acuity grossly intact Pna-Phar-Nuoad-Throat: Ears: no lesions on external ear, no outer ear tenderness, EACs clear, TMs clear. Hearing: no hearing loss. Nose: no lesions on external nose, nares patent, no septal deviation, nasal passages clear, no sinus tenderness, post nasal drip. Lips, Teeth, and Gums: no mouth or lip ulcers, no bleeding gums, normal dentition. Oropharynx: moist mucous membranes, no erythema, no exudates, tonsils not enlarged; cobblestoning Neck: Neck: supple, trachea midline, no masses, FROM. Lymph Nodes: no cervical LAD, no supraclavicular LAD Lungs: Respiratory effort: no dyspnea, no tachypnea, no use of accessory muscles, no intercostal retractions. Auscultation: breath sounds normal Cardiovascular: Heart Auscultation: RRR, no murmurs
--- OUTSIDE RECORDS SUMMARY | 2018-05-22 05:40 | XMS REPORT | Summary of Care ---
Author Organization Unknown Address Unknown Phone Unavailable Encounter HQ Tim(JESSICA) [id number] Date(s): 11/15/14 - 11/17/14 [facility] [address] [place] [address]- [phone] Discharge Disposition: Home Physician Attending: Joy Mac MD Physician Admitting: Joy Mac MD Vital Signs 1 2 3 Most recent to oldest [Reference Range]: 172.72 cm (11/16/14 4:16 AM) 172.72 cm (11/16/14 4:12 AM) 172.72 cm (11/15/14 7:08 PM) Height 101.818 kg (11/16/14 4:16 AM) Current Weight 98.6 DegF (11/17/14 12:00 PM) 98.6 DegF (11/17/14 8:00 AM) 98.3 DegF (11/17/14 4:46 AM) Temperature Oral [96.4-99.1 DegF] 136/77 mmHg (11/17/14 8:00 AM) 108/70 mmHg (11/17/14 4:46 AM) Blood Pressure [90-140/60-90 mmHg] 137 mmHg (11/17/14 12:00 PM) Systolic Blood Pressure [90-140 mmHg] 86 mmHg (11/17/14 12:00 PM) Diastolic Blood Pressure [60-90 mmHg] 20 BRMIN (11/17/14 12:00 PM) 20 BRMIN (11/17/14 8:00 AM) 16 BRMIN (11/17/14 6:39 AM) Respiratory Rate [14-20 BRMIN] 81 bpm (11/17/14 12:00 PM) 79 bpm (11/17/14 8:00 AM) 73 bpm (11/17/14 4:46 AM) Peripheral Pulse Rate [60-100 bpm] 102.4 kg (11/16/14 4:12 AM) 99.091 kg (11/15/14 7:08 PM) Weight 34.33 m2 (11/16/14 4:12 AM) 33.22 m2 (11/15/14 7:08 PM) Body Mass Index Problem List Condition Effective Dates Status Health Status Informant Cyst, Resolved ovarian(Confirmed) HTN Resolved (hypertension)(Confi rmed) Hypertension(Confirm Resolved ed) Allergies, Adverse Reactions, Alerts Substance Reaction Severity Status NKDA Active Medications acetaminophen 1,000 mg, 100 mL, Route: IVPB, Drug form: INJ, ONCE, Dosing Weight 102.4, kg, NE N Pain Score 1-3, Start date: 11/16/14 12:56:00, Duration: 1 doses or times, Sto p date: Limited # of times Notes: Infuse over 15 minutesDo not exceed 4gm/day of acetaminophen MEDICAT ION WASTE Product Size: 1000 mgProduct Wasted: ___ mg Start Date: 11/16/14 Stop Date: 11/16/14 Status: Discontinued acetaminophen 325 mg oral tablet 650 mg=2 tab, PO, Q6H, PRN Pain Score 1-3, 0 Refill(s) Start Date: 11/17/14 Status: Ordered acetaminophen-hydrocodone 325 mg-5 mg oral tablet 1 tab, Route: PO, Drug Form: TAB, Dosing Weight 102.4, kg, Q4H, PRN Pain Score 1 -3, Start date: 11/16/14 12:37:00, Duration: 30 day, Stop date: 12/16/14 12:36:0 0 Notes: (Same as: Girdler 325/5) Do not exceed 4gm/day of acetaminophen. Start Date: 11/16/14 Stop Date: 11/17/14 Status: Discontinued cefOXitin 2 gm, Route: IVPB, ONCE, Dosing Weight 102.4, kg, Start date: 11/16/14 11:30:00, Stop date: 11/16/14 11:30:00 Start Date: 11/16/14 Stop Date: 11/16/14 Status: Completed ciprofloxacin 400 mg, 200 mL, Route: IVPB, Drug form: INJ, [id number], Dosing Weight 99.091, kg, Priority: Routine, Start date: 11/16/14 12:00:00, Duration: 1 day, Stop date: 0:00:00 Notes: Do not refrigerate Start Date: 11/16/14 Stop Date: 11/17/14 Status: Completed ciprofloxacin 400 mg, Route: IVPB, ONCE, Dosing Weight 99.091, kg, Priority: STAT, Start date: 11/15/14 23:40:00, Stop date: 11/15/14 23:40:00 Start Date: 11/15/14 Stop Date: 11/16/14 Status: Completed ciprofloxacin 500 mg oral tablet 500 mg=1 tab, PO, Q12H, for UTI, X 3 day, # 6 tab, 0 Refill(s) Special Instructions: for UTI Start Date: 11/17/14 Stop Date: 11/20/14 Status: Ordered diphenhydrAMINE 12.5 mg, 0.25 mL, Route: IVP, Drug form: INJ, Q6H, Dosing Weight 102.4, kg, PRN Itching, Start date: 11/16/14 12:56:00, Duration: 30 day, Stop date: 12/16/14 12 :55:00 Notes: (Same as: Benadryl) Start Date: 11/16/14 Stop Date: 11/16/14 Status: Discontinued docusate sodium 100 mg oral capsule 100 mg=1 cap, PO, BID, 0 Refill(s) Start Date: 11/17/14 Status: Ordered docusate sodium 100 mg oral capsule 100 mg, 1 cap, Route: PO, Drug form: CAP, BID, Dosing Weight 102.4, kg, Start da te: 11/16/14 17:00:00, Duration: 30 day, Stop date: 12/16/14 9:00:00 Notes: (Same as: Colace) (Do Not Crush) Start Date: 11/16/14 Stop Date: 11/17/14 Status: Discontinued famotidine 20 mg, 2 mL, Route: IVP, Drug form: INJ, ONCE, Dosing Weight 99.091, kg, Priorit y: STAT, Start date: 11/15/14 21:09:00, Stop date: 11/15/14 21:09:00 Notes: (Same as: Pepcid)Can be dilute in 5-10cc NS IVP: Slow IV push over at le ast 2 minutes. Start Date: 11/15/14 Stop Date: 11/15/14 Status: Completed fentaNYL 25 microgram, 0.5 mL, Route: IVP, Drug form: INJ, Q5Min, Dosing Weight 102.4, kg , PRN Pain Score 4-6, Start date: 11/16/14 12:56:00, Duration: 4 doses or times, Stop date: Limited # of times Notes: (Same as: Sublimaze) Preservative free. Start Date: 11/16/14 Stop Date: 11/16/14 Status: Discontinued fentaNYL 50 microgram, 1 mL, Route: IVP, Drug form: INJ, Q5Min, Dosing Weight 102.4, kg, PRN Pain Score 7-10, Start date: 11/16/14 12:56:00, Duration: 2 doses or times, Stop date: Limited # of times Notes: (Same as: Sublimaze) Preservative free. Start Date: 11/16/14 Stop Date: 11/16/14 Status: Discontinued Flagyl 500 mg, 100 mL, Route: IVPB, Drug form: INJ, Q8H, Dosing Weight 99.091, kg, Prio rity: Routine, Start date: 11/16/14 8:00:00, Duration: 1 day, Stop date: 5 0:00:00 Notes: (Same as: Flagyl) Avoid alcohol. Start Date: 11/16/14 Stop Date: 11/17/14 Status: Completed flumazenil 0.2 mg, 2 mL, Route: IVP, Drug form: INJ, PRN, Dosing Weight 102.4, kg, PRN Delgado odiazepine Reversal, Initial dose, Start date: 11/16/14 12:56:00, Duration: 30 d ay, Stop date: 12/16/14 12:55:00 Notes: (Same as: Romazicon) Start Date: 11/16/14 Stop Date: 11/16/14 Status: Discontinued hydrochlorothiazide 25 mg oral tablet 25 mg=1 tab, PO, Daily, # 30 tab, 0 Refill(s) Start Date: 11/17/14 Status: Ordered hydrochlorothiazide-lisinopril 12.5 mg-10 mg oral tablet 1 tab, Route: PO, Drug Form: TAB, Dosing Weight 99.091, kg, Daily, Start date: 0 11/16/14 9:00:00, Duration: 30 day, Stop date: 12/15/14 9:00:00 Start Date: 11/16/14 Stop Date: 11/16/14 Status: Deleted hydromorphone 0.5 mg, 0.5 mL, Route: IVP, Drug form: INJ, Q5Min, Dosing Weight 102.4, kg, PRN Pain Score 7-10, Start date: 11/16/14 12:56:00, Duration: 4 doses or times, Stop date: Limited # of times Start Date: 11/16/14 Stop Date: 11/16/14 Status: Discontinued ketOROLAC 30 mg, 1 mL, Route: IVP, Drug form: INJ, ONCE, Dosing Weight 102.4, kg, Start da te: 11/16/14 12:56:00, Duration: 1 doses or times, Stop date: 11/16/14 12:56:00 Notes: (Same as:Toradol) IV bolus must be given >15 seconds. Give IM administration slowly and deeply into the muscle.Not for use > 4 days MEDICATION WASTE Product Size: 30 mgProduct Wasted: ___ mg Start Date: 11/16/14 Stop Date: 11/16/14 Status: Completed Lactated Ringers Injection IV 1,000 mL 1,000 mL, Rate: 125 ml/hr, Infuse over: 8 hr, Route: IV, Dosing Weight 102.4 kg, Total Volume: 1,000, Start date: 11/16/14 12:56:00, Duration: 30 day, Stop date: 12/16/14 12:55:00 Start Date: 11/16/14 Stop Date: 11/16/14 Status: Discontinued lisinopril 20 mg oral tablet 20 mg=1 tab, PO, Daily, # 30 tab, 0 Refill(s) Start Date: 11/17/14 Status: Ordered Lovenox 40 mg, 0.4 mL, Route: SUB-Q, Drug form: INJ, [id number], Dosing Weight 102.4, kg, Start date: 11/16/14 12:00:00, Duration: 30 day, Stop date: 12/15/14 12:00:00 Notes: (Same as: Lovenox) Start Date: 11/16/14 Stop Date: 11/17/14 Status: Discontinued meperidine 12.5 mg, 0.25 mL, Route: IVP, Drug form: INJ, Q30Min, Dosing Weight 102.4, kg, P RN Other -See Comment, For shivering, Start date: 11/16/14 12:56:00, Duration: 2 doses or times, Stop date: Limited # of times Notes: (Same As: Demerol) Start Date: 11/16/14 Stop Date: 11/16/14 Status: Discontinued metroNIDAZOLE 500 mg, 100 mL, Route: IVPB, Drug form: INJ, ONCE, Dosing Weight 99.091, kg, Uma ority: STAT, Start date: 11/15/14 23:40:00, Stop date: 11/15/14 23:40:00 Notes: (Same as: Flagyl) Avoid alcohol. Start Date: 11/15/14 Stop Date: 11/16/14 Status: Completed Microzide 25 mg, 1 tab, Route: PO, Drug form: TAB, Daily, Start date: 11/17/14 9:00:00, Du ration: 30 day, Stop date: 12/16/14 9:00:00 Notes: (Same as: Hydrodiuril) With food. Start Date: 11/17/14 Stop Date: 11/17/14 Status: Discontinued Microzide 12.5 mg, 1 cap, Route: PO, Drug form: CAP, Daily, Start date: 11/16/14 9:00:00, Duration: 30 day, Stop date: 12/15/14 9:00:00 Notes: (Same as: Microzide) With food. Start Date: 11/16/14 Stop Date: 11/16/14 Status: Discontinued morphine Sulfate 2 mg, 1 mL, Route: IVP, Drug form: INJ, Q5Min, Dosing Weight 102.4, kg, PRN Pain Score 4-6, Start date: 11/16/14 12:56:00, Duration: 5 doses or times, Stop date: Limited # of times Notes: (Same as:MORPhine Sulfate) Start Date: 11/16/14 Stop Date: 11/16/14 Status: Discontinued morphine Sulfate 4 mg, 2 mL, Route: IVP, Drug form: INJ, Q5Min, Dosing Weight 102.4, kg, PRN Pain Score 7-10, Start date: 11/16/14 12:56:00, Duration: 3 doses or times, Stop grace e: Limited # of times Notes: (Same as:MORPhine Sulfate) Start Date: 11/16/14 Stop Date: 11/16/14 Status: Discontinued morphine Sulfate 4 mg, 2 mL, Route: IVP, Drug form: INJ, ONCE, Dosing Weight 99.091, kg, Priority : STAT, Start date: 11/15/14 21:09:00, Stop date: 11/15/14 21:09:00 Notes: (Same as:MORPhine Sulfate) Start Date: 11/15/14 Stop Date: 11/15/14 Status: Completed morphine Sulfate 2 mg, 1 mL, Route: IVP, Drug form: INJ, Q3H, Dosing Weight 102.4, kg, PRN Pain S core 4-6, Start date: 11/16/14 12:37:00, Duration: 30 day, Stop date: 12/16/14 1 2:36:00 Notes: (Same as:MORPhine Sulfate) Start Date: 11/16/14 Stop Date: 11/17/14 Status: Discontinued morphine Sulfate 4 mg, 2 mL, Route: IVP, Drug form: INJ, Q4H, Dosing Weight 99.091, kg, PRN Pain Score 7-10, Start date: 11/16/14 3:16:00, Duration: 30 day, Stop date: 12/16/14 3:15:00 Notes: (Same as:MORPhine Sulfate) Start Date: 11/16/14 Stop Date: 11/17/14 Status: Discontinued naloxone 0.04 mg, 0.1 mL, Route: IVP, Drug form: INJ, Q2MIN, Dosing Weight 102.4, kg, PRN Narcotic Reversal, Start date: 11/16/14 12:56:00, Duration: 8 doses or times, S top date: Limited # of times Notes: Same as Narcan Start Date: 11/16/14 Stop Date: 11/16/14 Status: Discontinued Girdler 10/325 oral tablet 1 tab, Route: PO, Drug Form: TAB, Dosing Weight 102.4, kg, Q6H, PRN Pain Score 4 -6, Start date: 11/17/14 10:54:00, Duration: 30 day, Stop date: 12/17/14 10:53:0 0 Notes: Do not exceed 4gm/day of acetaminophen. (Same as: Girdler 325/10) Start Date: 11/17/14 Stop Date: 11/17/14 Status: Discontinued Ofirmev 1,000 mg, 100 mL, Route: IV, Drug form: INJ, Q6H, Dosing Weight 102.4, kg, for > or=50 kg, Start date: 11/16/14 18:00:00, Duration: 1 day, Stop date: 11/17/14 1 2:00:00 Notes: Infuse over 15 minutesDo not exceed 4gm/day of acetaminophen MEDICAT ION WASTE Product Size: 1000 mgProduct Wasted: ___ mg Start Date: 11/16/14 Stop Date: 11/17/14 Status: Discontinued ondansetron 4 mg, 2 mL, Route: IVP, Drug form: INJ, ONCE, Dosing Weight 102.4, kg, PRN Nause a & Vomiting, Start date: 11/16/14 12:56:00 Notes: (Same as: Eva) MEDICATION WASTE Product Size: 4 mgProduct Was kinjal: ___ mg Start Date: 11/16/14 Stop Date: 11/16/14 Status: Discontinued ondansetron 4 mg, 2 mL, Route: IVP, Drug form: INJ, ONCE, Dosing Weight 99.091, kg, Priority : STAT, Start date: 11/15/14 21:09:00, Stop date: 11/15/14 21:09:00 Notes: (Same as: Eva) MEDICATION WASTE Product Size: 4 mgProduct Was kinjal: ___ mg Start Date: 11/15/14 Stop Date: 11/15/14 Status: Completed ondansetron 4 mg, 2 mL, Route: IVP, Drug form: INJ, Q6H, Dosing Weight 102.4, kg, PRN Nausea & Vomiting, Start date: 11/16/14 12:37:00, Duration: 30 day, Stop date: 12/16/14 12:36:00 Notes: (Same as: Eva) MEDICATION WASTE Product Size: 4 mgProduct Was kinjal: ___ mg Start Date: 11/16/14 Stop Date: 11/17/14 Status: Discontinued ondansetron 4 mg, 2 mL, Route: IVP, Drug form: INJ, Q8H, Dosing Weight 99.091, kg, PRN Nause a & Vomiting, Start date: 11/16/14 3:16:00, Duration: 30 day, Stop date: 12/16/14 3:15:00 Notes: (Same as: Eva) MEDICATION WASTE Product Size: 4 mgProduct Was kinjal: ___ mg Start Date: 11/16/14 Stop Date: 11/17/14 Status: Discontinued oxyCODONE 10 mg, 2 tab, Route: PO, Drug form: TAB, Q4H, Dosing Weight 102.4, kg, PRN Pain Score 7-10, Start date: 11/16/14 12:56:00, Duration: 30 day, Stop date: 12/16/14 12:55:00 Notes: (Same as: Roxicodone) Start Date: 11/16/14 Stop Date: 11/16/14 Status: Discontinued oxyCODONE 5 mg, 1 tab, Route: PO, Drug form: TAB, Q4H, Dosing Weight 102.4, kg, PRN Pain S core 4-6, Start date: 11/16/14 12:56:00, Duration: 30 day, Stop date: 12/16/14 1 2:55:00 Notes: (Same as: Roxicodone) Start Date: 11/16/14 Stop Date: 11/16/14 Status: Discontinued oxyCODONE 5 mg/5 mL oral solution 10 mg, 10 mL, Route: NG, Drug form: LIQ, Q4H, Dosing Weight 102.4, kg, PRN Pain Score 7-10, Start date: 11/16/14 12:56:00, Duration: 30 day, Stop date: 12/16/14 12:55:00 Notes: (Same as: 'Roxicodone) Start Date: 11/16/14 Stop Date: 11/16/14 Status: Discontinued oxyCODONE 5 mg/5 mL oral solution 5 mg, 5 mL, Route: NG, Drug form: LIQ, Q4H, Dosing Weight 102.4, kg, PRN Pain Sc ore 4-6, Start date: 11/16/14 12:56:00, Duration: 30 day, Stop date: 12/16/14 12 :55:00 Notes: (Same as: 'Roxicodone) Start Date: 11/16/14 Stop Date: 11/16/14 Status: Discontinued pantoprazole 40 mg oral enteric coated tablet 40 mg=1 tab, PO, Before Dinner, # 30 tab, 0 Refill(s) Start Date: 11/17/14 Status: Ordered potassium chloride 40 mEq, 2 tab, Route: PO, Drug form: ERTAB, ONCE, Dosing Weight 102.4, kg, Start date: 11/17/14 9:38:00, Stop date: 11/17/14 9:38:00 Notes: (Same as: K-Dur 20)"Do Not Crush" With food and full glass of water Start Date: 11/17/14 Stop Date: 11/17/14 Status: Completed Prinivil 10 mg, 1 tab, Route: PO, Drug form: TAB, Daily, Start date: 11/16/14 9:00:00, Du ration: 30 day, Stop date: 12/15/14 9:00:00 Notes: (Same as: Prinivil, Zestril) Start Date: 11/16/14 Stop Date: 11/16/14 Status: Discontinued Prinivil 20 mg, 1 tab, Route: PO, Drug form: TAB, Daily, Start date: 11/17/14 9:00:00, Du ration: 30 day, Stop date: 12/16/14 9:00:00 Notes: (Same as: Prinivil, Zestril) Start Date: 11/17/14 Stop Date: 11/17/14 Status: Discontinued promethazine + Sodium Chloride 0.9% IV 50 mL 6.25 mg, 0.25 mL, Route: IVPB, ONCE, Dosing Weight 102.4, kg, PRN Nausea & Vomiting, Start date: 11/16/14 12:56:00 Notes: Do not give IV push. (Same as: Phenergan) Start Date: 11/16/14 Stop Date: 11/16/14 Status: Discontinued Protonix 40 mg, 1 tab, Route: PO, Drug form: ECTAB, Before Dinner, Dosing Weight 102.4, k g, Start date: 11/16/14 16:30:00, Duration: 30 day, Stop date: 12/15/14 16:30:00 Notes: Tablet should not be chewed or crushed.(Same as: Protonix) Start Date: 11/16/14 Stop Date: 11/17/14 Status: Discontinued Saline Flush 0.9% 10 mL, Route: IVP, Drug Form: INJ, Dosing Weight 99.091, kg, PRN, PRN Line Flush , Start date: 11/15/14 21:09:00, Duration: 30 day, Stop date: 12/15/14 21:08:00 Notes: (Same as: BD Posiflush) Start Date: 11/15/14 Stop Date: 11/17/14 Status: Discontinued Saline Flush 0.9% 10 ml, Route: IVP, Drug Form: INJ, Dosing Weight 102.4, kg, PRN, PRN Line Flush, Start date: 11/16/14 12:37:00, Duration: 30 day, Stop date: 12/16/14 12:36:00 Notes: (Same as: BD Posiflush) Start Date: 11/16/14 Stop Date: 11/17/14 Status: Discontinued Saline Flush 0.9% 10 ml, Route: IVP, Drug Form: INJ, Dosing Weight 99.091, kg, PRN, PRN Line Flush , Start date: 11/16/14 3:16:00, Duration: 30 day, Stop date: 12/16/14 3:15:00 Notes: (Same as: BD Posiflush) Start Date: 11/16/14 Stop Date: 11/17/14 Status: Discontinued Sodium Chloride 0.9% (Bolus) IV 1,000 mL, 1000 ml/hr, Infuse Over: 1 hr, Route: IV, 1,000, Drug form: INJ, ONCE, Priority: STAT, Dosing Weight 99.091 kg, Start date: 11/15/14 21:09:00, Duratio n: 1 doses or times, Stop date: 11/15/14 21:09:00 Start Date: 11/15/14 Stop Date: 11/15/14 Status: Completed Sodium Chloride 0.9% IV 1,000 mL 1,000 mL, Rate: 125 ml/hr, Infuse over: 8 hr, Route: IV, Dosing Weight 102.4 kg, Total Volume: 1,000, Start date: 11/16/14 12:37:00, Duration: 30 day, Stop date: 12/16/14 12:36:00 Start Date: 11/16/14 Stop Date: 11/17/14 Status: Discontinued Sodium Chloride 0.9% IV 1,000 mL 1,000 mL, Rate: 125 ml/hr, Infuse over: 8 hr, Route: IV, Dosing Weight 99.091 kg , Total Volume: 1,000, Start date: 11/16/14 3:16:00, Duration: 30 day, Stop date : 12/16/14 3:15:00 Start Date: 11/16/14 Stop Date: 11/17/14 Status: Discontinued tramadol 50 mg, 1 tab, Route: PO, Drug form: TAB, Q6H, Dosing Weight 102.4, kg, PRN Pain Score 1-3, Start date: 11/17/14 10:55:00, Duration: 30 day, Stop date: 12/17/14 10:54:00 Notes: Not to exceed 400mg/day. (Same As: Ultram) Start Date: 11/17/14 Stop Date: 11/17/14 Status: Discontinued tramadol 50 mg oral tablet 50 mg=1 tab, PO, Q6H, PRN Pain Score 4-6, # 24 tab, 0 Refill(s) Start Date: 11/17/14 Stop Date: 11/24/14 Status: Ordered Tylenol 650 mg, 2 tab, Route: PO, Drug form: TAB, Q6H, Dosing Weight 102.4, kg, PRN Pain Score 1-3, Start date: 11/17/14 10:54:00, Duration: 30 day, Stop date: 12/17/14 10:53:00 Notes: Do not exceed 4 gm/day. (Same as: Tylenol) Start Date: 11/17/14 Stop Date: 11/17/14 Status: Discontinued Results ELECTROLYTES Most recent to 1 2 oldest [Reference Range]: Sodium Lvl [135-145 137 mEq/L 137 mEq/L mEq/L] (11/17/14 6:45 AM) (11/15/14 9:50 PM) Potassium Lvl 3.2 mEq/L 3.7 mEq/L [3.5-5.1 mEq/L] *LOW* (11/15/14 9:50 PM) (11/17/14 6:45 AM) Chloride Lvl [95-109 105 mEq/L 104 mEq/L mEq/L] (11/17/14 6:45 AM) (11/15/14 9:50 PM) CO2 [24-32 mEq/L] 24 mEq/L 23 mEq/L (11/17/14 6:45 AM) *LOW* (11/15/14:50 PM) AGAP [10.0-20.0 11.2 mEq/L 13.7 mEq/L mEq/L] (11/17/14 6:45 AM) (11/15/14 9:50 PM) CHEM PANEL Most recent to 1 2 oldest [Reference Range]: Creatinine Lvl 0.7 mg/dL 0.6 mg/dL [0.5-1.4 mg/dL] (11/17/14 6:45 AM) (11/15/14 9:50 PM) eGFR 115 mL/min/1.73m2 1 121 mL/min/1.73m2 2 *NA* *NA* (11/17/14 6:45 AM) (11/15/14 9:50 PM) BUN [7-22 mg/dL] 6 mg/dL 8 mg/dL *LOW* (11/15/14 9:50 PM) (11/17/14 6:45 AM) B/C Ratio [6-25] 9 13 (11/17/14 6:45 AM) (11/15/14 9:50 PM) Glucose Lvl [70-99 100 mg/dL 3 116 mg/dL 4 mg/dL] *HI* *HI* (11/17/14 6:45 AM) (11/15/14 9:50 PM) Total Protein 6.4 g/dL 8.5 g/dL [6.4-8.4 g/dL] (11/17/14 6:45 AM) *HI* (11/15/14 9:50 PM) Albumin Lvl [3.5-5.0 3.1 g/dL 4.1 g/dL g/dL] *LOW* (11/15/14 9:50 PM) (11/17/14 6:45 AM) Globulin [2.0-4.0 3.3 g/dL 4.4 g/dL g/dL] (11/17/14 6:45 AM) *HI* (11/15/14 9:50 PM) A/G Ratio [0.7-1.6] 0.9 0.9 (11/17/14 6:45 AM) (11/15/14 9:50 PM) Calcium Lvl 7.4 mg/dL 8.6 mg/dL [8.5-10.5 mg/dL] *LOW* (11/15/14 9:50 PM) (11/17/14 6:45 AM) Phosphorus [2.5-4.5 1.7 mg/dL mg/dL] *LOW* (11/17/14 6:45 AM) Magnesium Lvl 2.1 mg/dL [1.8-2.4 mg/dL] (11/17/14 6:45 AM) ALT [0-65 unit/L] 79 unit/L 33 unit/L *HI* (11/15/14 9:50 PM) (11/17/14 6:45 AM) AST [0-37 unit/L] 27 unit/L 16 unit/L (11/17/14 6:45 AM) (11/15/14 9:50 PM) Alk Phos [39-136 41 unit/L 50 unit/L unit/L] (11/17/14 6:45 AM) (11/15/14 9:50 PM) Bili Total [0.2-1.3 1.6 mg/dL 1.1 mg/dL mg/dL] *HI* (11/15/14 9:50 PM) (11/17/14 6:45 AM) Amylase Lvl [25-115 27 unit/L unit/L] (11/15/14 9:50 PM) Lipase Lvl [73-393 134 unit/L unit/L] (11/15/14 9:50 PM) 1Result Comment: The eGFR is calculated using [...] from the National Kid[employer] Education Program ( NKDEP) which additionally recommends that when the eGFR is used in patients with extremes of body mass index for purposes of drug dosing, the eGFR should be mul tiplied by the estimated BMI. 2Result Comment: The eGFR is calculated using [...] from the National Kid[employer] Education Program ( NKDEP) which additionally recommends that when the eGFR is used in patients with extremes of body mass index for purposes of drug dosing, the eGFR should be mul tiplied by the estimated BMI. 3Interpretive Data: Adult reference range values reflect the clinical guidelines of the [place] [employer]. 4Interpretive Data: Adult reference range values reflect the clinical guidelines of the [place] [employer]. LIPIDS Most recent to 1 2 oldest [Reference Range]: CHD Risk [3.90-5.80] 1.64 *LOW* (11/17/14 6:45 AM) Chol [<=199 mg/dL] 92 mg/dL (11/17/14 6:45 AM) Trig [<=149 mg/dL] 62 mg/dL (11/17/14 6:45 AM) HDL [>=61 mg/dL] 56 mg/dL *LOW* (11/17/14 6:45 AM) LDL (Calculated) 24 mg/dL [<=99 mg/dL] (11/17/14 6:45 AM) VLDL 12 *NA* (11/17/14 6:45 AM) SPECIAL CHEMISTRY Most recent to 1 2 oldest [Reference Range]: Hgb A1C [<=5.6 %] 5.9 % *HI* (11/17/14 6:45 AM) THYROID PANEL Most recent to 1 2 oldest [Reference Range]: TSH [0.360-3.740 1.310 uIU/mL uIU/mL] (11/17/14 6:45 AM) URINE CHEM Most recent to 1 2 oldest [Reference Range]: U Preg [Negative] Negative (11/15/14 9:50 PM) URINE AND STOOL Most recent to 1 2 oldest [Reference Range]: UA Turbidity [Clear] Clear (11/15/14 9:50 PM) UA Color Red *NA* (11/15/14 9:50 PM) UA pH [5.0-8.0] 7.0 (11/15/14 9:50 PM) UA Spec Grav 1.003 [<=1.030] (11/15/14 9:50 PM) UA Glucose [Negative Negative mg/dL mg/dL] *NA* (11/15/14 9:50 PM) UA Blood [Negative] Large *ABN* (11/15/14 9:50 PM) UA Ketones [Negative Negative mg/dL mg/dL] *NA* (11/15/14 9:50 PM) UA Protein [Negative 100 mg/dL mg/dL] *ABN* (11/15/14 9:50 PM) UA Urobilinogen <=1.0 mg/dL [0.1-1.0 mg/dL] *NA* (11/15/14 9:50 PM) UA Bili [Negative] Negative *NA* (11/15/14 9:50 PM) UA Leuk Est Moderate [Negative] *ABN* (11/15/14 9:50 PM) UA Nitrite Negative [Negative] (11/15/14 9:50 PM) UA WBC [0-5 /HPF] 48 /HPF *HI* (11/15/14 9:50 PM) UA RBC [0-2 /HPF] >182 /HPF *HI* (11/15/14 9:50 PM) UA Bacteria [None Occasional /HPF Seen /HPF] *NA* (11/15/14 9:50 PM) UA Sq Epi [Few /LPF] Occasional /LPF *NA* (11/15/14 9:50 PM) HEMATOLOGY Most recent to 1 2 oldest [Reference Range]: WBC [3.7-10.4 K/CMM] 13.4 K/CMM 23.1 K/CMM *HI* *HI* (11/17/14 6:45 AM) (11/15/14 9:50 PM) RBC [4.20-5.40 3.62 M/CMM 4.66 M/CMM M/CMM] *LOW* (11/15/14 9:50 PM) (11/17/14 6:45 AM) Hgb [12.0-16.0 g/dL] 11.6 g/dL 14.8 g/dL *LOW* (11/15/14 9:50 PM) (11/17/14 6:45 AM) Hct [36.0-48.0 %] 33.9 % 43.0 % *LOW* (11/15/14 9:50 PM) (11/17/14 6:45 AM) MCV [80.0-98.0 fL] 93.7 fL 92.3 fL (11/17/14 6:45 AM) (11/15/14 9:50 PM) MCH [27.0-31.0 pg] 32.1 pg 31.8 pg *HI* *HI* (11/17/14 6:45 AM) (11/15/14 9:50 PM) MCHC [32.0-36.0 34.3 g/dL 34.5 g/dL g/dL] (11/17/14 6:45 AM) (11/15/14 9:50 PM) RDW [11.5-14.5 %] 13.6 % 13.6 % (11/17/14 6:45 AM) (11/15/14 9:50 PM) Platelet [133-450 177 K/CMM 224 K/CMM K/CMM] (11/17/14 6:45 AM) (11/15/14 9:50 PM) MPV [7.4-10.4 fL] 9.6 fL 9.6 fL (11/17/14 6:45 AM) (11/15/14 9:50 PM) Segs [45.0-75.0 %] 79.7 % 91.4 % *HI* *HI* (11/17/14 6:45 AM) (11/15/14 9:50 PM) Lymphocytes 14.5 % 5.1 % [20.0-40.0 %] *LOW* *LOW* (11/17/14 6:45 AM) (11/15/14 9:50 PM) Monocytes [2.0-12.0 5.5 % 3.2 % %] (11/17/14 6:45 AM) (11/15/14 9:50 PM) Eosinophils [0.0-4.0 0.1 % %] (11/17/14 6:45 AM) Basophils [0.0-1.0 0.2 % 0.3 % %] (11/17/14 6:45 AM) (11/15/14 9:50 PM) Segs-Bands # 10.7 K/CMM 21.1 K/CMM [1.5-8.1 K/CMM] *HI* *HI* (11/17/14 6:45 AM) (11/15/14 9:50 PM) Lymphocytes # 1.9 K/CMM 1.2 K/CMM [1.0-5.5 K/CMM] (11/17/14 6:45 AM) (11/15/14 9:50 PM) Monocytes # [0.0-0.8 0.7 K/CMM 0.7 K/CMM K/CMM] (11/17/14 6:45 AM) (11/15/14 9:50 PM) Basophils # [0.0-0.2 0.1 K/CMM K/CMM] (11/15/14 9:50 PM) Immunizations No data available for this section Procedures No data available for this section Social History Social History Type Response Smoking Status Never smoker; Exposure to Tobacco Smoke None; Cigarette Smoking Last 365 Days No; Reg Smoking Cessation Counseling No Assessment and Plan Extracted from: Title: Clinical Document Author: Joy Mac MD Date: 11/17/14 DAILY PROGRESS NOTE Family Medicine Joy Mac MD SUBJECTIVE: Patient seen and examined at bedside. Chart reviewed and events noted. Patient denies chest pain. Denies shortness of breath. Denies headache. denies abdominal pain. OBJECTIVE: Review of Systems 1. General: no fever, no chills, no fatigue, no weight changes 2. HEENT: no sore throat, no runny nose, no ear pain 3. Respiratory: no shortness of breath, no cough, no wheezing 4. Cardiovascular: no chest pain, no palpitations, no dyspnea on exertion 5. Gastrointestinal: no abdominal pain, no nausea, no vomiting, no constipation, no diarrhea 6. Genitourinary: no dysuria, no urinary urgency, no urinary frequency 7. Musculoskeletal: no joint pain, no muscle pain 8. Skin: no rashes, no lesions 9. Neurological: no headaches, no dizziness, no weakness, no numbness and no tingling 10: Psychological: no depression, no anxiety, no insomnia VitalsTmp(F)[id number] 11/17 08:0098.780321/[id number]--- 11/17 06:39 1695 21% 11/17 04:4698.411957/7016------ 11/17 00:3998.824739/7618------ 11/16 21:05 1695--- 24 Hr Tmax: 99.3F (37.39c) at 11/16 11:00Vital Signs are the last 5 in the past 48 hours. I&ORecordInOutBal 10/2423hr Tot 0 0 0 10/2323hr Tot 2643 0 2643 PHYSICAL EXAM: General: Alert and oriented x 3, no acute distress. HEENT: Oropharynx clear. Moist muscous membranes. Respiratory: Lungs clear to auscultation bilaterally. No wheezes. No rhonchi. No rales. Cardiovascular: Regular rate and rhythm. No murmurs. Gastrointestinal: Soft, no tenderness, non-distended. Positive bowel sounds. Extremities: No clubbing. No cyanosis. No edema bilaterally. Skin: No visible rashes or lesions. Psychological: Appropriate mood and affect. MEDICATIONS: Scheduled Meds (5): 11/16/14 docusate (docusate sodium 100 mg oral capsule) 100 mg PO BID 11/16/14 enoxaparin (Lovenox) 40 mg SUB-Q [id number] 11/17/14 hydrochlorothiazide (Microzide) 25 mg PO Daily 11/17/14 lisinopril (Prinivil) 20 mg PO Daily 11/16/14 pantoprazole (Protonix) 40 mg PO Before Dinner Unscheduled Meds: None PRN Meds (11): 11/16/14 acetaminophen-hydrocodone (acetaminophen-hydrocodone 325 mg-5 mg oral tablet) 1 tab PO Q4H 11/17/14 acetaminophen-hydrocodone (Girdler 10/325 oral tablet) 1 tab PO Q6H 11/17/14 acetaminophen (Tylenol) 650 mg PO Q6H 11/16/14 morphine Sulfate 4 mg IVP Q4H 11/16/14 morphine Sulfate 2 mg IVP Q3H 11/16/14 ondansetron 4 mg IVP Q8H 11/16/14 ondansetron 4 mg IVP Q6H 11/15/14 sodium chloride (Saline Flush 0.9%) 10 mL IVP PRN 11/16/14 sodium chloride (Saline Flush 0.9%) 10 ml IVP PRN 11/16/14 sodium chloride (Saline Flush 0.9%) 10 ml IVP PRN 11/17/14 tramadol 50 mg PO Q6H Continuous Infusions (2): 11/16/14 Sodium Chloride 0.9% IV 1,000 mL 1,000 mL 125 ml/hr 11/16/14 Sodium Chloride 0.9% IV 1,000 mL 1,000 mL 125 ml/hr LABS: 24hr Labs 11/17 0645 Sodium Ljn643 Potassium Lvl3.2 L Chloride Rvc005 CO224 AGAP11.2 Glucose Nyw074 H Creatinine Lvl0.7 BUN6 L B/C Ratio9 Total Protein6.4 Albumin Lvl3.1 L Globulin3.3 A/G Ratio0.9 Calcium Lvl7.4 L ALT79 H AST27 Alk Phos41 Bili Total1.6 H nTCB443 Chol92 Trig62 HDL56 L LDL (Calculated)24 VLDL12 CHD Risk1.64 L Magnesium Lvl2.1 Phosphorus1.7 L TSH1.310 WBC13.4 H RBC3.62 L Hgb11.6 L Hct33.9 L MCV93.7 MCH32.1 H MCHC34.3 RDW13.6 Uillsopc382 MPV9.6 Segs79.7 H Monocytes5.5 Xpkohchdpvo84.5 L Eosinophils0.1 Basophils0.2 Segs-Bands #10.7 H Lymphocytes #1.9 Monocytes #0.7 11/16 1103 Glucose FLN990 H ASSESSMENT & PLAN: 1. Cardiovascular: hypertension. BP better today. continue lisinopril-HCTZ 20-25 mg daily. lipid panel normal. 2. Respiratory: stable. no issues 3. ID: UTI. will continue IV ABX ciprofloxacin. urine culturepending 4. Gastrointenstinal: acute cholecystitis s/p lap cholecystectomy. POD 1. pain control. patient doing well. Dr Waters surgery following. Ok to DC home per Dr Waters 5. Renal: stable. no issues 6. Neuro/Psyche: stable. no issues 7. Endocrine: will check a HbA1C pending and TSH normal 8. Heme/Onc: no anemia at this time. H & H stable. will continue to monitor 9. : ruptured ovarian cyst and vaginal bleeding due to patient's monthly menstrual cycle. [employer] Dr Grant consulted who ordered a pelvic USG. However, pt states that she wants to go home and can follow up outpatient with Dr Grant for pelvic USG 10. GI/DVT prophylaxis: 11. will discharge home today Extracted from: Title: Clinical Document Author: Luis A Waters MD Date: 11/16/14 DATE OF PROCEDURE: 11/16/2014. PREOPERATIVE DIAGNOSIS: 1. Acute cholecystitis. POSTOPERATIVE DIAGNOSIS: 1. Acute cholecystitis. 2. Hemorrhagic ovairan cyst. TECHNICAL PROCEDURE PERFORMED: 1. Laparoscopic cholecystectomy. 2. Diagnositic laparoscopy with insepction of the ovaries and evacuation of hemoperitoneum. SURGEON: Luis A Waters M.D. ANESTHESIA: General endotracheal. SURGICAL WOUND CLASSIFICATION: Clean contaminate. OPERATIVE TIME: 45 minutes. ESTIMATED BLOOD LOSS: Minimal. FLUID REPLACEMENT: Per anesthesia. SPECIMENS SENT FOR PATHOLOGY: Gallbladder. COMPLICATIONS: None. FINDINGS: 1. Gallstones. 2. Inflamed gallbladder. 3. Well visualized critical view. 4. Large right ovarian cyst with hemorrhagic component. 5. Moderate volume hemoperitoneum. 6. Normal appearing appendix. CONDITION: To recovery, stable. POSTOPERATIVE PLAN: To the floor INDICATIONS: A 34 year old lady that presented to [facility] with abdominal pain. At this time, the history and physical as well as laboratory studies was consistent with diagnosis of acute cholecystitis, therefore, the option of laparoscopic versus open cholecystectomy was offered to the patient. Risks and benefits of the procedure were explained and the patient voiced understanding and consented to procedure. OPERATIVE NARRATIVE: Patient was taken the operating room, placed on the operating table, intubated by anesthesia. The abdomen was prepped and draped in the usual sterile fashion. A timeout was called and the correct patient, as well as procedure was verified. The patient had SCDs on for thromboembolic prophylaxis and received antibiotics scheduled, therefore did not need them within 1 hour of the incision. Umbilical region was identified, 0.5% Marcaine was infused followed 1-cm incision followed by dissection of the fascia. The fascia was grasped with a Diogo clamp and a Veress was place, confirmed with a positive saline drop test. Pneumoperitoneum was achieved with CO2 gas up to 15 mmHg. The abdomen was inspected and noted to have significant volume hemoperitoneum of uncertain origin. The patient was placed in reverse Trendelenburg position airplaned to the left; 0.5 cm trocars were introduced in the epigastrium, right upper quadrant right periumbilical regions under direct visualization. The g allbladder was identified. It was grasped at the fundus and retracted to the head, infundibulum was identified, grasped and retracted towards the legs, exposing the triangle of Calot. The cystic duct was identified, it was dissected out from all surrounding structures, clipped proximally 3 times, distally once, transected in between. Of note, a well visualized critical view was identified; therefore we bypassed cholangiogram. The dissection continued to identify the cystic artery, it was dissected out from all surrounding structures, clipped proximally twice, distally once, and transected in between. The gallbladder was then elevated off the liver bed using electrocautery. It was placed in the Endopouch bag and removed from the abdomen through the umbilical port. The liver bed was inspected, all residual bleeding was identified and controlled. The abdomen was irrigated with copious amounts water until clear return was achieved. At this time, it was noted the patient had moderate volume hemoperitoneum even prior to removing the gallbladder and we found it appropriate to look into the pelvis to determine the source. The ovaries were inspected and the right ovary was noted to be quite large with a hemorrhagic component and there was significant hemoperitoneum in the pelvis. Likely the hemoperitoneum and suprapubic pain pre op could be explained by the blood in the pelvis and the likely source was the right ovary. The appendix was inspected and noted to be normal without inflammatory changes. The hemoperitoneum was suctioned out and the pelvis was irrigated with copious amounts of water until clear return was achieved. The patient was placed flat and all residual irrigation was suctioned out. The pneumoperitoneum was decompressed and the fascia at the umbilical port was closed using 0 Vicryl in a [id number] manner, and the skin was closed using 4-0 Monocryl in running subcuticular manner. The skin and three 5-mm ports were closed using 4-0 Monocryl in simple U-stitch manner. The patient was extubated in the operating room and transferred to recovery in stable condition. All instrument and laparotomy counts were correct.
--- OUTSIDE RECORDS SUMMARY | 2018-05-22 05:40 | XMS REPORT ---
Author Author Joy Mac Organization [employer] Address Unknown Phone Unavailable Care Team Providers Care Tax Services Intern Name Role Phone Joy Mac Unavailable Allergies, Adverse Reactions, Alerts Substance Reaction Event Type N.K.D.A. Info Not Available Non Drug Allergy Encounters Encounter Location Date patient here for sick visit,complains of High blood pressure [facility] Feb 14, 2015 patient here for a ER follow up [facility] September 04, 2014 question [facility] November 22, 2014 Patient here for a follow up on sx from gallbladder [facility] November 22, 2014 Problems Problem Type Condition ICD-9 Code Onset Dates Condition Status Problem Other malaise and fatigue 780.79 Active Problem BMI 33.0-33.9,adult V85.33 Active Problem Obesity (BMI 30.0-34.9) 278.00 Active Problem Muscle cramps 729.82 Active Problem Stress at work V62.1 Active Problem Dizziness 780.4 Active Problem Ovarian cyst 620.2 Active Problem Hypertension 401.9 Active Problem Cholecystitis with cholelithiasis 574.10 Active Problem Hx laparoscopic cholecystectomy V45.89 Active Assessment Stress at work V62.1 Active Assessment Muscle cramps 729.82 Active Assessment Dizziness 780.4 Active Assessment Hypertension 401.9 Active Medications Medication Code System Code Instructions Start Date End Date Status Dosage [facility] [address]-94 25-20 MG Orally Once a day September 04, 2014 Active 1 [facility] [address]-41 500 mg Orally three times a day (tid) as needed (prn) Feb 14, 2015 Feb 24, 2015 Active 1 tablet HydrOXYzine HCl [facility] [address]-28 10 mg Orally three times a day (tid) as needed (prn) Feb 14, 2015 Active as directed Social History Social History Element Qualifiers Date Reported Tobacco Use: . Are you a: never smoker Feb 14, 2015 Use of recreational / street drugs? . Answer: No Feb 14, 2015 Do you have pets? . Status: No Feb 14, 2015 Marital Status: . Single Feb 14, 2015 Caffeine intake? . Status: Yes, What type: Coffee, How often? Daily Feb 14, 2015 New since last visit: none. Feb 14, 2015 Do you exercise? . Answer: Yes, Type: Brian, How often? Weekly Feb 14, 2015 Do you drink alcohol? . Status: Yes, Type: Beer, How often? Once per month Feb 14, 2015 Family history Qualifier Description Comment Date Reported Maternal Grandmother Comment not available Feb 14, 2015 Paternal Grandmother Comment not available Feb 14, 2015 Siblings Comment not available Feb 14, 2015 Maternal Grandfather Comment not available Feb 14, 2015 Children Comment not available Feb 14, 2015 Father alive Comment not available Feb 14, 2015 Paternal Grandfather Comment not available Feb 14, 2015 Mother alive Comment not available Feb 14, 2015 Other: Comment not available Feb 14, 2015 Vital Signs Date/Time: Feb 14, 2015 Weight 204.1 lbs Height 68 in Temperature 98.6 F Cardiac Monitoring Heart Rate 93 /min Blood Pressure Diastolic 91 mm Hg Blood Pressure Systolic 137 mm Hg Results CMP (Comprehensive Metabolic Panel) ALT(-0-65 U/L) 43 Calcium Lvl(-8.5-10.5 mg/dL) 9.7 Alk Phos(-39-136 U/L) 53 AST(-0-37 U/L) 15 B/C Ratio(-6-25 ) 16 BUN(-7-22 mg/dL) 11 eGFR(- mL/min/1.73m2) 115 Creatinine Lvl(-0.5-1.4 mg/dL) 0.7 Glucose Lvl(-70-99 mg/dL) 86 AGAP(-10.0-20.0 mEq/L) 14.9 Albumin Lvl(-3.5-5.0 g/dL) 5.0 Total Protein(-6.4-8.4 g/dL) 8.8 A/G Ratio(-0.7-1.6 ) 1.3 Globulin(-2.0-4.0 g/dL) 3.8 Sodium Lvl(-135-145 mEq/L) 136 Potassium Lvl(-3.5-5.1 mEq/L) 3.9 Chloride Lvl(-95-109 mEq/L) 101 CO2(-24-32 mEq/L) 24 CBC w/ Auto Diff and Platelet MCHC(-32.0-36.0 g/dL) 33.6 MCH(-27.0-31.0 pg) 31.8 Platelet(-133-450 K/CMM) 268 MPV(-7.4-10.4 fl) 9.8 RDW(-11.5-14.5 %) 14.7 Hct(-36.0-48.0 %) 47.5 MCV(-80.0-98.0 fl) 94.5 RBC(-4.20-5.40 M/CMM) 5.03 Hgb(-12.0-16.0 g/dL) 16.0 WBC(-3.7-10.4 K/CMM) 13.2 Summary Purpose eClinicalWorks Submission
--- OUTSIDE RECORDS SUMMARY | 2018-05-22 05:40 | XMS REPORT | Encounter Summary ---
Author Organization Unknown Address [address] [place] [address] Phone [phone] Reason for Visit Medical Complaint Instructions 1. Upper respiratory infection upper respiratory infection (cold): care instructions benzonatate 200 mg capsule 2. Feeling feverish rapid flu (A+B) 3. Pain in throat sore throat: care instructions rapid strep group A, throat Discussion Note: None recorded. Plan of Care Patient Instructions take medication as directed. follow up pcp Reminders Provider Appointments None recorded. Lab Rapid Flu (A+B) 05/08/2017 [facility] Rapid Strep Group a, Throat 05/08/2017 [facility] Referral None recorded. Procedures None recorded. Surgeries None recorded. Imaging None recorded. Medications Name Start Date amlodipine 5 mg tablet TAKE ONE (1) TABLET(S) BY MOUTH ONCE A DAY. benzonatate 200 mg capsule Take 1 capsule 3 times a day by oral route as needed. cholecalciferol (vitamin D3) 50,000 unit capsule TAKE ONE (1) CAPSULE(S) BY MOUTH EVERY WEEK. levothyroxine 50 mcg tablet TAKE ONE (1) TABLET(S) BY MOUTH ONCE A DAY. Medications Administered None recorded. Vitals Height Weight BMI Blood Pressure 5 ft 8 in 200 lbs 30.4 kg/m2 128/88 mm[Hg] Lab Results Date Name Specimen Result Interpretation Description Value Range Status Address Rapid Strep Group a, Throat Result negative [facility]: [address] [place] [address] Swab Location Left and Right tonsillar pillars [facility]: [address] [place] [address] Rapid Flu (A+B) Influenza a negative [facility]: [address] [place] [address] Influenza B negative [facility]: [address] [place] [address] Allergies Code Code System Name Reaction Severity Status Onset NKDA Problems None recorded. Procedures Date Name Performed by Cholecystectomy Information not available Vaccine List None recorded. Social History Smoking Status Never Smoker Past Encounters 05/08/2017 Upper Respiratory Infection; Feeling Feverish; Pain in Throat [facility]: [address] [place] [address], Ph. History of Present Illness Insyh-Lbjceqrxhu-Nkpyjyn Reported By: Patient HPI: Location: throat, chest. Quality: sore throat, dry cough. Duration: 1days. Severity: mild, moderate. Onset/Timing: gradual. Context: no foreign travel, non-smoker, sick contact. Modifying factors: OTC medication. Associated Symptoms: no sputum production, no shortness of breath, no wheezing, no change in number of pillows needed to sleep at night, no sweats, no significant weight gain, no significant weight loss, no morning cough, no vomiting, no diarrhea, no rash, no nausea, no fever, no headache, sore throat, muscle aches Review of Systems:ROS as noted in the HPI Review of Systems Basic Reported By: Patient Physical Exam Adult Basic, Adult Female Complete Reported By: Patient Constitutional: General Appearance: healthy-appearing, well-nourished, well-developed. Level of Distress: NAD. Ambulation: ambulating normally Psychiatric: Mental Status: active and alert Eyes: Lids and Conjunctivae: non-injected, no discharge Auk-Ljge-Gqght-Throat: Ears: no lesions on external ear, no outer ear tenderness, EACs clear, TMs clear. Hearing: no hearing loss. Nose: no lesions on external nose, nares patent, no septal deviation, nasal passages clear, no sinus tenderness, no nasal discharge. Lips, Teeth, and Gums: no mouth or lip ulcers. Oropharynx: moist mucous membranes, no erythema, no exudates, tonsils not enlarged Neck: Neck: trachea midline. Lymph Nodes: no cervical LAD Lungs: Respiratory effort: no dyspnea, no tachypnea, no use of accessory muscles, no intercostal retractions. Auscultation: breath sounds normal Cardiovascular: Heart Auscultation: RRR, no murmurs
--- OUTSIDE RECORDS SUMMARY | 2018-05-22 05:40 | XMS REPORT ---
Author Author Joy Mac Organization [employer] Address Unknown Phone Unavailable Care Team Providers Care Barrel Polisher Name Role Phone Joy Mac Unavailable Encounters Encounter Location Date patient here for sick visit,complains of High blood pressure [facility] Feb 14, 2015 patient here to go over abnormal lab results [facility] Feb 21, 2015 Referral [facility] Apr 22, 2015 patient here for a ER follow up [facility] September 04, 2014 question [facility] November 22, 2014 Patient here for a follow up on sx from gallbladder [facility] November 22, 2014 Problems Problem Type Condition [...] Active Problem Hx laparoscopic cholecystectomy V45.89 Active Social History Social History Element Qualifiers Date Reported Tobacco Use: . Are you a: never smoker Feb 21, 2015 Use of recreational / street drugs? . Answer: No Feb 21, 2015 Do you have pets? . Status: No Feb 21, 2015 Marital Status: . Single Feb 21, 2015 Caffeine intake? . Status: Yes, What type: Coffee, How often? Daily Feb 21, 2015 New since last visit: none. Feb 21, 2015 Do you exercise? . Answer: Yes, Type: Brian, How often? Weekly Feb 21, 2015 Do you drink alcohol? . Status: Yes, Type: Beer, How often? Once per month Feb 21, 2015 Summary Purpose eClinicalWorks Submission
--- OUTSIDE RECORDS SUMMARY | 2018-05-22 05:40 | XMS REPORT ---
Author Author Joy Mac Organization [employer] Address Unknown Phone Unavailable Care Team Providers Care Conductor/Brakeman Name Role Phone Joy Mac Unavailable Allergies, Adverse Reactions, Alerts Substance Reaction Event Type N.K.D.A. Info Not Available Non Drug Allergy Encounters Encounter Location Date patient here for sick visit,complains of High blood pressure [facility] Feb 14, 2015 patient here to go over abnormal lab results [facility] Feb 21, 2015 patient here for a ER follow up [facility] September 04, 2014 question [facility] November 22, 2014 Patient here for a follow up on sx from gallbladder [facility] November 22, 2014 Problems Problem Type Condition ICD-9 Code Onset Dates Condition Status Problem Other malaise and fatigue 780.79 Active Problem BMI 33.0-33.9,adult V85.33 Active Problem Obesity (BMI 30.0-34.9) 278.00 Active Assessment Leukocytosis 288.60 Active Assessment UTI (urinary tract infection) 599.0 Active Problem Muscle cramps 729.82 Active Problem Stress at work V62.1 Active Problem Dizziness 780.4 Active Problem Ovarian cyst 620.2 Active Problem Hypertension 401.9 Active Problem Cholecystitis with cholelithiasis 574.10 Active Problem Hx laparoscopic cholecystectomy V45.89 Active Medications Medication Code System Code Instructions Start Date End Date Status Dosage [facility] [address]-09 25-20 MG Orally Once a day September 04, 2014 Active 1 tablet Robaxin [facility] [address]-09 500 mg Orally three times a day (tid) as needed (prn) Feb 14, 2015 Feb 24, 2015 Active 1 tablet Bactrim DS [facility] [address]-29 800-160 MG Orally twice a day (bid) Mar 08, 2015 Mar 18, 2015 Active 1 tablet HydrOXYzine HCl [facility] [address]-19 10 mg Orally three times a day [...] often? Once per month Feb 21, 2015 Family history Qualifier Description Comment Date Reported Maternal Grandmother Comment not available Feb 21, 2015 Paternal Grandmother Comment not available Feb 21, 2015 Siblings Comment not available Feb 21, 2015 Maternal Grandfather Comment not available Feb 21, 2015 Children Comment not available Feb 21, 2015 Father alive Comment not available Feb 21, 2015 Paternal Grandfather Comment not available Feb 21, 2015 Mother alive Comment not available Feb 21, 2015 Other: Comment not available Feb 21, 2015 Vital Signs Date/Time: Feb 21, 2015 Weight 205.3 lbs Height 68 in Temperature 98.6 F Cardiac Monitoring Heart Rate 89 /min Blood Pressure Diastolic 92 mm Hg Blood Pressure Systolic 145 mm Hg Immunizations Vaccine Administration Date Rocephin Feb 21, 2015 Summary Purpose eClinicalWorks Submission
--- OUTSIDE RECORDS SUMMARY | 2018-05-22 05:40 | XMS REPORT ---
Author Author Joy Mac Organization [employer] Address Unknown Phone Unavailable Care Team Providers Care Medical Administrative Specialist Name Role Phone Bubba Joy Unavailable Allergies, Adverse Reactions, Alerts Substance Reaction Event Type N.K.D.A. Info Not Available Non Drug Allergy Encounters Encounter Location Date patient here for sick visit,complains of High blood pressure [facility] Feb 14, 2015 patient here to go over abnormal lab results [facility] Feb 21, 2015 Referral [facility] Apr 22, 2015 Patient here with complaints of esr infection [facility] Jun 06, 2015 patient here for a ER follow up [facility] September 04, 2014 question [facility] November 22, 2014 Patient here for a follow up on sx from gallbladder [facility] November 22, 2014 Patient here with knee fracture [facility] Aug 11, 2015 Patient here to follow up with High blood pressure [facility] Aug 25, 2015 Problems Problem Type Condition [...] H92.21 Active Problem Hypertension I10 Active Assessment Hypokalemia E87.6 Active Assessment Anxiety F41.9 Active Problem Obesity (BMI 30.0-34.9) 278.00 Active Problem BMI 33.0-33.9,adult V85.33 Active Assessment Hypertension I10 Active Problem Hypertension 401.9 Active Problem Other malaise and fatigue 780.79 Active Problem Ovarian cyst 620.2 Active Medications Medication Code System Code Instructions Start Date End Date Status Dosage Lupron Depot [facility] [address]-21 Active Unknown HydrOXYzine HCl [facility] [address]-56 25 MG Orally three times a day (tid) as needed (prn) Feb 14, 2015 Active as directed Lisinopril-Hydrochlorothiazide [facility] [address]-69 25-20 MG Orally Once a day September 04, 2014 Active 1 tablet Paroxetine HCl [facility] [address]-50 10 mg Orally Once a day Aug 25, 2015 Active 1 tablet in the morning Social History Social History Element Qualifiers Date Reported Tobacco Use: . Are you a: never smoker Aug 25, 2015 Use of recreational / street drugs? . Answer: No Aug 25, 2015 Do you have pets? . Status: No Aug 25, 2015 Marital Status: . Single Aug 25, 2015 Caffeine intake? . Status: Yes, What type: Coffee, How often? Daily Aug 25, 2015 New since last visit: none. Aug 25, 2015 Do you exercise? . Answer: Yes, Type: Brian, How often? Weekly Aug 25, 2015 Do you drink alcohol? . Status: Yes, Type: Beer, How often? Once per month Aug 25, 2015 Vital Signs Date/Time: Aug 25, 2015 Weight 195.6 lbs Height 68 in Temperature 98.4 F Cardiac Monitoring Heart Rate 82 /min Blood Pressure Diastolic 93 mm Hg Blood Pressure Systolic 134 mm Hg Summary Purpose eClinicalWorks Submission
--- OUTSIDE RECORDS SUMMARY | 2018-05-22 05:40 | XMS REPORT ---
Author Author Joy Mac Organization [employer] Address Unknown Phone Unavailable Care Team Providers Care Freight Representative Name Role Phone Joy Mac Unavailable Allergies, Adverse Reactions, Alerts Substance Reaction Event Type N.K.D.A. Info Not Available Non Drug Allergy Encounters Encounter Location Date patient here for sick visit,complains of High blood pressure [facility] Feb 14, 2015 patient here to go over abnormal lab results [facility] Feb 21, 2015 Referral [facility] Apr 22, 2015 Patient here with complaints of esr infection [facility] Jun 06, 2015 patient here for a ER follow up [facility] September 04, 2014 patient here for physical [facility] January 02, 2016 question [facility] November 22, 2014 Patient here for a follow up on sx from gallbladder [facility] November 22, 2014 Patient here for a follow up [facility] September 05, 2015 Patient here with knee fracture [facility] Aug 11, 2015 Patient here to follow up with High blood pressure [facility] Aug 25, 2015 Problems Problem Type [...] H92.21 Active Problem Hypertension I10 Active Assessment Left knee pain M25.562 Active Assessment Hypertension I10 Active Assessment Anxiety F41.9 Active Problem Obesity (BMI 30.0-34.9) 278.00 Active Problem BMI 33.0-33.9,adult V85.33 Active Assessment Annual physical exam Z00.00 Active Problem Hypertension 401.9 Active Problem Other malaise and fatigue 780.79 Active Problem Ovarian cyst 620.2 Active Medications Medication Code System Code Instructions Start Date End Date Status Dosage HydrOXYzine HCl [facility] [address]-25 25 MG Orally three times a day (tid) as needed (prn) Active as directed Lupron Depot [facility] [address]-12 Active Unknown Paroxetine HCl [facility] [address]-56 20 mg Orally Once a day Active 1 tablet in the morning Lisinopril-Hydrochlorothiazide [facility] [address]-22 25-20 MG Orally Once a day Active 1 tablet Social History Social History Element Qualifiers Date Reported Tobacco Use: . Are you a: never smoker January 02, 2016 Use of recreational / street drugs? . Answer: No January 02, 2016 Do you have pets? . Status: No January 02, 2016 Marital Status: . Single January 02, 2016 Caffeine intake? . Status: Yes, What type: Coffee, How often? Daily January 02, 2016 New since last visit: none. January 02, 2016 Do you exercise? . Answer: Yes, Type: Brian, How often? Weekly January 02, 2016 Do you drink alcohol? . Status: Yes, Type: Beer, How often? Once per month January 02, 2016 Vital Signs Date/Time: January 02, 2016 Weight 200.7 lbs Height 68 in Temperature 97.9 F Cardiac Monitoring Heart Rate 76 /min Blood Pressure Diastolic 80 mm Hg Blood Pressure Systolic 125 mm Hg Summary Purpose eClinicalWorks Submission
--- OUTSIDE RECORDS SUMMARY | 2018-05-22 05:41 | XMS REPORT | Continuity of Care Document ---
Author Author [facility] Organization [facility] Address Unknown Phone Unavailable Care Team Providers Care Security Advisor Name Role Phone MD Evelin, Luis A LAWRENCE Unavailable Insurance Providers Payer name Policy type / Coverage type Policy ID Covered republican ID Policy Mcdonald [facility] (POS) Encounters Encounter Performer Location Date Office Visit Luis A Waters MD [facility] Nov 26, 2014 Problems Problem Effective Dates Problem Status ACUTE CHOLECYSTITIS Nov 26, 2014 Active Procedures Date Description Comments Nov 26, 2014 smoking status Unknown if ever smoked Medications Medication Instructions Start Date Status LISINOPRIL 20 MG TABS 1 tablet daily Nov 26, 2014 Active HYDROCHLOROTHIAZIDE 25 MG TABS 1 tablet daily Nov 26, 2014 Active Vital Signs Date Description Test Result Nov 26, 2014 height E&M - 8302-2 HEIGHT 68 in Nov 26, 2014 weight E&M - 3141-9 WEIGHT 210 lb Nov 26, 2014 temperature E&M TEMPERATURE 98.9 deg f Nov 26, 2014 pulse rate E&M - 8867-4 PULSE RATE 105 /min Nov 26, 2014 blood pressure, systolic - 8480-6 BP SYSTOLIC 152 mm Hg Nov 26, 2014 blood pressure, diastolic - 8462-4 BP DIASTOLIC 95 mm Hg
--- OUTSIDE RECORDS SUMMARY | 2018-05-22 05:41 | XMS REPORT ---
Author Author Joy Mac Organization [employer] Address Unknown Phone Unavailable Care Team Providers Care Plating Equipment Tender Name Role Phone Joy Mac Unavailable Allergies, Adverse Reactions, Alerts Substance Reaction Event Type N.K.D.A. Info Not Available Non Drug Allergy Encounters Encounter Location Date patient here for sick visit,complains of High blood pressure [facility] Feb 14, 2015 patient here to go over abnormal lab results [facility] Feb 21, 2015 Referral [facility] Apr 22, 2015 Patient here with complaints of esr infection [facility] Jun 06, 2015 patient here for a ER follow up [facility] September 04, 2014 question [facility] November 22, 2014 Patient here for a follow up on sx from gallbladder [facility] November 22, 2014 Patient here for a follow up [facility] September 05, 2015 Patient here with knee fracture [facility] Aug 11, 2015 Patient here to follow up with High blood pressure [facility] Aug 25, 2015 patient here with complaints of a UTI [facility] Jun 23, 2016 patient here for physical [facility] January 02, 2016 patien t here to follow up on medication [facility] Feb 06, 2016 Problems Problem Type Condition ICD-9 Code Onset Dates Condition Status Problem Muscle cramps 729.82 Active Problem Hypertension I10 Active Problem Dizziness 780.4 Active Problem Hyperlipidemia E78.5 Active Assessment Tinea corporis B35.4 Active Problem Low vitamin D level E55.9 Active Problem Tinea corporis B35.4 Active Problem Otitis media H66.90 Active Problem Blood in right ear canal H92.21 Active Problem Anxiety F41.9 Active Problem Left knee pain M25.562 Active Problem Other malaise and fatigue 780.79 Active Problem Obesity (BMI 30.0-34.9) 278.00 Active Assessment Vaginal discharge N89.8 Active Assessment Acute cystitis without hematuria N30.00 Active Problem Ovarian cyst 620.2 Active Problem Hx laparoscopic cholecystectomy V45.89 Active Problem BMI 33.0-33.9,adult V85.33 Active Problem Cholecystitis with cholelithiasis 574.10 Active Problem Hypertension 401.9 Active Problem Stress at work V62.1 Active Medications Medication Code System Code Instructions Start Date End Date Status Dosage Lisinopril-Hydrochlorothiazide [facility] 06804091368 20-25 MG Active TAKE ONE (1) TABLET(S) BY MOUTH ONCE A DAY. [facility] [address]-50 100 MG Orally Three times a day Jun 23, 2016 Jun 25, 2016 Active 1 tablet after meals Ciprofloxacin HCl [facility] [address]-70 500 MG Orally Twice a day Jun 23, 2016 Jun 28, 2016 Active [address] HCl [facility] [address]-20 20 mg Orally Once a day Active 1 tablet in the morning Lupron Depot [facility] [address]-74 Active Unknown Lisinopril-Hydrochlorothiazide [facility] [address]-82 25-20 MG Orally Once a day Active 1 tablet [address]Yzine HCl [facility] [address]-00 25 MG Orally three times a day (tid) as needed (prn) Active as directed Metronidazole [facility] [address]-47 500 MG Orally Twice a day Jun 23, 2016 Jun 28, 2016 Active [address] [facility] [address]-00 2 % Externally Once a day Jun 23, 2016 Jul 24, 2016 Active 1 application to affected area Social History Social History Element Qualifiers Date Reported Tobacco Use: . Are you a: never smoker Jun 23, 2016 Use of recreational / street drugs? . Answer: No Jun 23, 2016 Alcohol Screening: . Points: 0, Interpretation: Negative Jun 23, 2016 Smoke Exposure: . Second Hand Smoke Exposure: No Jun 23, 2016 Do you have pets? . Status: No Jun 23, 2016 Marital Status: . Single Jun 23, 2016 Caffeine intake? . Status: Yes, What type: Coffee, How often? Daily Jun 23, 2016 New since last visit: none. Jun 23, 2016 Do you exercise? . Answer: Yes, Type: Brian, How often? Weekly Jun 23, 2016 Do you drink alcohol? . Status: Yes, Type: Beer, How often? Once per month Jun 23, 2016 Family history Qualifier Description Comment Date Reported Maternal Grandmother Comment not available Jun 23, 2016 Paternal Grandmother Comment not available Jun 23, 2016 Siblings Comment not available Jun 23, 2016 Maternal Grandfather Comment not available Jun 23, 2016 Children Comment not available Jun 23, 2016 Father alive Comment not available Jun 23, 2016 Paternal Grandfather Comment not available Jun 23, 2016 Mother alive Comment not available Jun 23, 2016 Other: Comment not available Jun 23, 2016 Vital Signs Date/Time: Jun 23, 2016 Weight 207.3 lbs Height 68 in Temperature 98.1 F Cardiac Monitoring Heart Rate 103 /min Blood Pressure Diastolic 98 mm Hg Blood Pressure Systolic 150 mm Hg Immunizations Vaccine Administration Date FLU SHOT 3 & UP Jun 23, 2016 Summary Purpose eClinicalWorks Submission
--- OUTSIDE RECORDS SUMMARY | 2018-05-22 05:41 | XMS REPORT ---
Author Author oJy Mac [facility] eClinical[employer] Address Unknown Phone Unavailable Care Team Providers Care Rn Security Name Role Phone Joy Mac Unavailable Allergies, Adverse Reactions, Alerts Substance Reaction Event Type N.K.D.A. Info Not Available Non Drug Allergy Encounters Encounter Location Date patient here for sick visit,complains of High blood pressure [facility] Feb 14, 2015 patient here to go over abnormal lab results [facility] Feb 21, 2015 Referral [facility] Apr 22, 2015 Patient here with complaints of esr infection [facility] Jun 06, 2015 patient here for a ER follow up [facility] September 04, 2014 question [facility] November 22, 2014 Patient here for a follow up on sx from gallbladder [facility] November 22, 2014 Patient here for a follow up [facility] September 05, 2015 Patient here with knee fracture [facility] Aug 11, 2015 Patient here to follow up with High blood pressure [facility] Aug 25, 2015 patient here with complaints of a UTI [facility] Jun 23, 2016 Patient here for medication refill [facility] August 27, 2016 patient here for physical [facility] January 02, 2016 patien t here to follow up on medication [facility] Feb 06, 2016 Problems Problem Type Condition ICD-9 Code Onset Dates Condition Status Problem Hypertension I10 Active Problem Otitis media H66.90 Active Problem Blood in right ear canal H92.21 Active Problem Obesity (BMI 30-39.9) E66.9 Active Assessment Hypertension I10 Active Problem Tinea corporis B35.4 Active Assessment BMI 30.0-30.9,adult Z68.30 Active Assessment Obesity (BMI 30-39.9) E66.9 Active Problem BMI 30.0-30.9,adult Z68.30 Active Problem Anxiety F41.9 Active Problem Left knee pain M25.562 Active Problem Hyperlipidemia E78.5 Active Problem Low vitamin D level E55.9 Active Problem BMI 33.0-33.9,adult V85.33 Active Problem Hypertension 401.9 Active Problem Other malaise and fatigue 780.79 Active Problem Obesity (BMI 30.0-34.9) 278.00 Active Problem Cholecystitis with cholelithiasis 574.10 Active Problem Stress at work V62.1 Active Problem Ovarian cyst 620.2 Active Problem Muscle cramps 729.82 Active Problem Hx laparoscopic cholecystectomy V45.89 Active Problem Dizziness 780.4 Active Medications Medication Code System Code Instructions Start Date End Date Status Dosage Paroxetine HCl [facility] [address]-32 20 mg Orally Once a day Active 1 tablet in the morning Lisinopril-Hydrochlorothiazide [facility] 28178208397 20-25 MG Active TAKE ONE (1) TABLET(S) BY MOUTH ONCE A DAY. HydrOXYzine HCl [facility] [address]-46 25 MG Orally three times a day (tid) as needed (prn) Active as directed Lisinopril-Hydrochlorothiazide [facility] [address]-47 25-20 MG Orally Once a day Active 1 tablet Lupron Depot [facility] [address]-98 Active Unknown Social History Social History Element Qualifiers Date Reported Tobacco Use: . Are you a: never smoker August 27, 2016 Use of recreational / street drugs? . Answer: No August 27, 2016 Alcohol Screening: . Points: 0, Interpretation: Negative August 27, 2016 Smoke Exposure: . Second Hand Smoke Exposure: No August 27, 2016 Do you have pets? . Status: No August 27, 2016 Marital Status: . Single August 27, 2016 Caffeine intake? . Status: Yes, What type: Coffee, How often? Daily August 27, 2016 New since last visit: none. August 27, 2016 Do you exercise? . Answer: Yes, Type: Brian, How often? Weekly August 27, 2016 Do you drink alcohol? . Status: Yes, Type: Beer, How often? Once per month August 27, 2016 Vital Signs Date/Time: August 27, 2016 Weight 203.0 lbs Height 68 in Temperature 97.8 F Cardiac Monitoring Heart Rate 72 /min Blood Pressure Diastolic 75 mm Hg Blood Pressure Systolic 133 mm Hg Summary Purpose eClinicalWorks Submission
--- OUTSIDE RECORDS SUMMARY | 2018-05-22 05:41 | XMS REPORT ---
Author Author Joy Mac Organization [employer] Address Unknown Phone Unavailable Care Team Providers Care Fine Sander Name Role Phone Joy Mac Unavailable Allergies, Adverse Reactions, Alerts Substance Reaction Event Type N.K.D.A. Info Not Available Non Drug Allergy Encounters Encounter Location Date patient here for sick visit,complains of High blood pressure [facility] Feb 14, 2015 patient here to go over abnormal lab results [facility] Feb 21, 2015 Referral [facility] Apr 22, 2015 Patient here with complaints of esr infection [facility] Jun 06, 2015 patient here for a ER follow up [facility] September 04, 2014 patient here for physical [facility] January 02, 2016 question [facility] November 22, 2014 patien t here to follow up on medication [facility] Feb 06, 2016 Patient here for a follow up on sx from gallbladder [facility] November 22, 2014 Patient here for a follow up [facility] September 05, 2015 Patient here with knee fracture [facility] Aug 11, 2015 Patient here to follow up with High blood pressure [facility] Aug 25, 2015 Problems Problem Type Condition ICD-9 Code Onset Dates Condition Status Problem Stress at work V62.1 Active Problem Dizziness 780.4 Active Problem Muscle cramps 729.82 Active Problem Low vitamin D level E55.9 Active Assessment Low vitamin D level E55.9 Active Problem Anxiety F41.9 Active Assessment Rash R21 Active Problem Hyperlipidemia E78.5 Active Problem Blood in right ear canal H92.21 Active Problem Hypertension I10 Active Problem Left knee pain M25.562 Active Problem Otitis media H66.90 Active Assessment Hypertension I10 Active Problem Other malaise and fatigue 780.79 Active Assessment Hyperlipidemia E78.5 Active Assessment Anxiety F41.9 Active Problem Hypertension 401.9 Active Problem Ovarian cyst 620.2 Active Problem Obesity (BMI 30.0-34.9) 278.00 Active Problem Hx laparoscopic cholecystectomy V45.89 Active Problem BMI 33.0-33.9,adult V85.33 Active Problem Cholecystitis with cholelithiasis 574.10 Active Medications Medication Code System Code Instructions Start Date End Date Status Dosage Lisinopril-Hydrochlorothiazide [facility] 56150237048 20-25 MG Active TAKE ONE (1) TABLET(S) BY MOUTH ONCE A DAY. Hydrocortisone [facility] [address]-05 2.5 % Externally Twice a day Feb 06, 2016 Mar 08, 2016 Active 1 application to affected area HydrOXYzine HCl [facility] [address]-39 25 MG Orally three times a day (tid) as needed (prn) Active as directed Ergocalciferol [facility] [address]-14 22392 UNIT Orally Once a week Feb 06, 2016 May 06, 2016 Active 1 capsule Paroxetine HCl [facility] [address]-93 20 mg Orally Once a day Active 1 tablet in the morning Lupron Depot [facility] [address]-54 Active Unknown Lisinopril-Hydrochlorothiazide [facility] [address]-16 25-20 MG Orally Once a day Active 1 tablet Social History Social History Element Qualifiers Date Reported Tobacco Use: . Are you a: never smoker Feb 06, 2016 Use of recreational / street drugs? . Answer: No Feb 06, 2016 Alcohol Screening: . Points: 0, Interpretation: Negative Feb 06, 2016 Smoke Exposure: . Second Hand Smoke Exposure: No Feb 06, 2016 Do you have pets? . Status: No Feb 06, 2016 Marital Status: . Single Feb 06, 2016 Caffeine intake? . Status: Yes, What type: Coffee, How often? Daily Feb 06, 2016 New since last visit: none. Feb 06, 2016 Do you exercise? . Answer: Yes, Type: Brian, How often? Weekly Feb 06, 2016 Do you drink alcohol? . Status: Yes, Type: Beer, How often? Once per month Feb 06, 2016 Family history Qualifier Description Comment Date Reported Maternal Grandmother Comment not available Feb 06, 2016 Paternal Grandmother Comment not available Feb 06, 2016 Siblings Comment not available Feb 06, 2016 Maternal Grandfather Comment not available Feb 06, 2016 Children Comment not available Feb 06, 2016 Father alive Comment not available Feb 06, 2016 Paternal Grandfather Comment not available Feb 06, 2016 Mother alive Comment not available Feb 06, 2016 Other: Comment not available Feb 06, 2016 Vital Signs Date/Time: Feb 06, 2016 Weight 200.2 lbs Height 68 in Temperature 98.3 F Cardiac Monitoring Heart Rate 74 /min Blood Pressure Diastolic 90 mm Hg Blood Pressure Systolic 132 mm Hg Summary Purpose eClinicalWorks Submission
[2018-05-22 06:22] LABS: BASOPHILS # (AUTO) 0.1 (0.0-0.1); BASOPHILS % 0.6 % (0.0-1.0); EOSINOPHILS # (AUTO) 0.1 (0.0-0.4); EOSINOPHILS % 1.3 % (0.0-6.0); HEMATOCRIT 41.5 % (34.2-44.1); HEMOGLOBIN 14.6 g/dL (12.0-16.0); LYMPHOCYTES # (AUTO) 2.9 (1.0-3.2); LYMPHOCYTES % 29.8 % (18.0-39.1); MEAN CORPUSCULAR HEMOGLOBIN 32.2 pg (28-32); MEAN CORPUSCULAR HGB CONC 35.2 g/dL (31-35); MEAN CORPUSCULAR VOLUME 91.4 fL (81-99); MONOCYTES # (AUTO) 0.5 (0.2-0.8); MONOCYTES % 4.9 % (4.4-11.3); NEUTROPHILS # (AUTO) 6.2 (2.1-6.9); NEUTROPHILS % 62.9 % (38.7-80.0); PLATELET COUNT 231 x10e3/uL (140-360); RED BLOOD COUNT 4.54 x10e6/uL (3.6-5.1); RED CELL DISTRIBUTION WIDTH 12.4 % (11.7-14.4)
[2018-05-22 06:28] LABS: PREGNANCY TEST, URINE NEGATIVE (NEGATIVE)
[2018-05-22 06:35] LABS: STREPTOCOCCUS GRP A ANTIGEN POSITIVE (NEGATIVE)
[2018-05-22 06:36] LABS: CLARITY,URINE CLEAR (CLEAR); COLOR,URINE COLORLESS (YELLOW); KETONES,URINE NEGATIVE (NEGATIVE); LEUKOCYTE ESTERASE ,URINE 1+ (NEGATIVE); NITRITE,URINE NEGATIVE (NEGATIVE); PROTEIN,URINE DIPSTICK NEGATIVE (NEGATIVE); URINE UROBILINOGEN 0.2 mg/dL (0.2 - 1)
[2018-05-22 06:37] LABS: BILIRUBIN,URINE NEGATIVE (NEGATIVE)
[2018-05-22 06:38] LABS: INR 0.96; PARTIAL THROMBOPLASTIN TIME 32.6 seconds (23.8-35.5); PROTHROMBIN TIME 13.7 seconds (11.9-14.5)
--- NOTE | 2018-05-22 06:42 | Diagnostic Imaging Report ---
EXAMINATION: CHEST 2 VIEWS INDICATION: Cough, palpitations. COMPARISON: None FINDINGS: PA and lateral views TUBES and LINES: None. LUNGS: Lungs are well inflated. Lungs are clear. There is no evidence of pneumonia or pulmonary edema. PLEURA: No pleural effusion or pneumothorax. HEART AND MEDIASTINUM: The cardiomediastinal silhouette is unremarkable. BONES AND SOFT TISSUES: No acute osseous lesion. Soft tissues are unremarkable. UPPER ABDOMEN: No free air under the diaphragm. There are cholecystectomy clips. IMPRESSION: No acute thoracic abnormality. Signed by: DR. Peter Viveros MD on 05/22/2018 6:39 AM
[2018-05-22 06:44] LABS: INFLUENZAE A&B ANTIGEN (RAPID) NEGATIVE (NEGATIVE)
[2018-05-22 06:45] LABS: ALANINE AMINOTRANSFERASE 26 IU/L (0-55); ALBUMIN 4.3 g/dL (3.5-5.0); ALBUMIN/GLOBULIN RATIO 1.2 (0.8-2.0); ALKALINE PHOSPHATASE 45 IU/L (40-150); BLOOD UREA NITROGEN 9 mg/dL (7-26); BUN/CREATININE RATIO 12 (6-25); CARBON DIOXIDE 24 mmol/L (22-29); CHLORIDE 97 mmol/L (98-107); CREATINE KINASE 44 IU/L (29-168); CREATININE, SERUM 0.76 mg/dL (0.57-1.11); EST GLOMERULAR FILTRATION RATE > 60 ML/MIN (60-); GLUCOSE 148 mg/dL (74-118); SODIUM 132 mmol/L (136-145)
[2018-05-22 06:48] LABS: MAGNESIUM 4.5 MG/DL (1.3-2.1)
[2018-05-22] MEDS ORDERED: SODIUM CHLORIDE 0.9% 1000ML 1,000 ML IV STA (06:48)
[2018-05-22 07:03] LABS: EPITHELIAL CELLS,URINE MODERATE /LPF
[2018-05-22 07:04] LABS: BACTERIA,URINE RARE /HPF; RBC,URINE 0-5 /HPF (0-5); WBC,URINE (MAN) 21-50 /HPF (0-5)
[2018-05-22 07:04] LABS: CALCIUM 9.7 mg/dL (8.4-10.2)
[2018-05-22 07:06] LABS: THYROID STIMULATING HORMONE 2.995 uIU/mL (0.350-4.940)
[2018-05-22] MEDS ORDERED: FUROSEMIDE INJ 10 MG/ML 2 ML VIAL IV NR (07:15)
[2018-05-22] MEDS ORDERED: KCL 20MEQ/.9 SOD CHL 1,000 ML IV ONE (07:15)
[2018-05-22] MEDS ORDERED: PENICILLIN G BENZATHINE LA 1.2 MU TBX IM NR (07:15)
[2018-05-22] MEDS ORDERED: POTASSIUM CHLORIDE 20 MEQ TAB CR PO NR (07:15)
--- OUTSIDE RECORDS SUMMARY | 2018-05-22 07:44 | XMS REPORT ---
Author [facility] Address Unknown Phone Unavailable Care Team Providers Care Unix Analyst Name Role Phone Ok RAMIREZ Unavailable Unavailable Problems This patient has no known problems. Allergies, Adverse Reactions, Alerts This patient has no known allergies or adverse reactions. Medications This patient has no known medications. Results Test Description Test Time Test Comments Text Results Atomic Results Result Comments CHEST 2 VIEWS 2018-05-22 06:37:00 [place] [address] Patient Name: CLEM FERGUSON MR #: [id number] : 1980 Age/Sex: 38/F Req #: [id number] [facility] Physician: Ordered by: LEAH RAMIREZ MD Report #: [id number] Location: ER Room/Bed: Procedure: [id number] DX/CHEST 2 VIEWS Exam Date: 05/22/18 Exam Time: 0625 REPORT STATUS: Signed EXAMINATION: CHEST 2 VIEWS INDICATION: Cough, palpit ations. COMPARISON: None FINDINGS: PA and lateral views TUBES and LINES: None. LUNGS: Lungs are well inflated. Lungs are clear. There is no evidence of pneumonia or pulmonary edema. PLEURA: No pleural effusion or pneumothorax. HEART AND MEDIASTINUM: The cardiomediastinal silhouette is unremarkable. BONES AND SOFT TISSUES: No acute osseous lesion. Soft tissues are unremarkable. UPPER ABDOMEN: No free air under the diaphragm. There are cholecystectomy clips. IMPRESSION: No acute thoracic abnormality. Signed by: DR. Peter Viveros MD on 05/22/2018 6:39 AM Dictated By: PETER VIVEROS MD 8 Transcribed By: DAISY on 05/22/18638 COPY TO: LEAH RAMIREZ MD
[2018-05-22] MEDS ORDERED: CEFTRIAXONE SOD 1 GM VIAL IM NR (08:00)
[2018-05-22] MEDS ORDERED: CEFTRIAXONE SOD 1 GM VIAL IV NR (08:15)
--- NOTE | 2018-05-22 10:02 | History and Physical ---
Ms. Piña is a 38-year-old female with a history of hypertension that 2 weeks ago she was taking phentermine and diuretics for weight loss that she received in the clinic. For some reason, she was not feeling good taking the medication so she stopped the medication. Came back from [place] last night. When she was sleeping, woke up and she was not feeling good. Had some chest discomfort and palpitations. She decided to come to the emergency room. PAST MEDICAL HISTORY: She has hypertension. SOCIAL HISTORY: She does not smoke and she does not drink. She lives at home with her family. ALLERGIES: NO KNOWN DRUG ALLERGIES. PAST SURGICAL HISTORY: She had cholecystectomy and right oophorectomy. PHYSICAL EXAMINATION GENERAL: Today, she is awake and alert. She is complaining of feeling some chest discomfort. VITALS: Temperature is 98.8, blood pressure is 137/101, on admission blood pressure was elevated. HEART: Regular rate. LUNGS: Clear to auscultation. ABDOMEN: Soft. BLOOD WORK: White count is 9.78, hemoglobin is 14.6 and hematocrit is 41.5. Chemistry: Potassium was 3, sodium 132, creatinine 0.76. Magnesium was 4.5. Cardiac enzymes first set negative. Urine shows 21-50 white blood cells. Influenza negative. Strep screen positive. She also had a chest x-ray done that shows no acute findings. PLAN: At the present time, is to continue IV fluids. Replace potassium. Monitor the electrolytes in 3 hours. I am going to get a cardiology consult with Dr. Orr. She received 1 dose of IV antibiotics. Continue to monitor. Will admit her once we have data available. All of this was discussed with the patient. All questions were answered to satisfaction. Job#: [id number] AD
--- NOTE | 2018-05-22 11:39 | Consultation ---
DATE OF CONSULTATION: May 22, 2018 CARDIOLOGY CONSULTATION REASON FOR CONSULTATION: Palpitations. HISTORY OF PRESENT ILLNESS: Ms. Piña is a 38-year-old lady with past medical history of hypertension diagnosed in 2016, remote history of palpitations of unclear etiology with previous negative outpatient workup 2 years ago, as well as chronic loose stools post cholecystectomy many years ago as well as overweight. Had recently been on phentermine therapy. The patient had reported 2 to 3 days of sore throat, nonproductive cough, low-grade fevers and malaise and reports feeling off and on palpitations that have been escalating in the last 24 hours. Earlier, she reported palpitations that lasted 5 minutes constant and just felt nervous. She checked her blood pressure, and it was noted to be elevated in the 150s over upper 90s range. The patient rechecked her blood pressure, and it was noted to be up to 200/100 despite taking her lisinopril therapy. The patient reports that most recently she was prescribed phentermine 3 months ago and had stopped it about 2 weeks ago and had previously been on triamterene/hydrochlorothiazide, and that has, again, also been stopped about 2 weeks ago on account of "loose stools" that has been more so than normal. She reports taking Mucinex D for her sore throat and coughing symptoms, and this may have been playing a role with her palpitations. Upon my review, the patient also reported 1 episode of chest pain, right-sided, at the upper breast area, dull ache she reports in the muscle region, 2/10 with exacerbation with palpation. Reassured her that unlikely this is cardiac. EKG reveals normal sinus rhythm, normal axis and no ST-T-wave changes concerning for ischemia. PAST MEDICAL HISTORY 1. Hypertension, essential, diagnosed in 2016. 2. Chronic loose stools. 3. Palpitations worked up 2 years ago as an outpatient without any clear-cut etiology. PAST SURGICAL HISTORY 1. History of cholecystectomy. 2. History of right oophorectomy with ovarian cyst surgical repair. 3. History of subsequent ovarian cyst surgery. FAMILY HISTORY: Mother alive in 60s with diabetes. Father at the age of 68 with a heart attack and had diabetes. SOCIAL HISTORY: She is a lifelong nonsmoker. Reports drinking 1 to 2 times per week of alcohol. Denies any illicit drug use. ALLERGIES: NO KNOWN DRUG ALLERGIES. HOME MEDICATIONS: Lisinopril 20 mg daily. Recently had stopped phentermine 30 mg daily and was on triamterene 75 per 50 mg tablets 1/2 tablet every other day, again stopped 2 weeks ago. Has been on p.r.n. Mucinex D. REVIEW OF SYSTEMS GENERAL: Positive for low-grade fevers and malaise. Denies any chills. HEENT: Had occasional slight headache. Positive for sore throat. Slight nasal stuffiness. RESPIRATORY: Denies any shortness of breath or wheezing. Denies any pleuritic component to her chest pain. Positive for cough that is nonproductive. CARDIOVASCULAR: As per HPI. Denies any typical anginal symptoms, orthopnea, PND or lower extremity edema. GI: Denies any abdominal pain. Has had increase in loose stools recently. Denies any hematemesis, nausea or vomiting. : Denies any pyuria or change in urinary frequency. MUSCULOSKELETAL: Denies any swelling. Has occasional leg cramps for the past 6 months that is off and on. HEMATOLOGY: Denies any easy bruising or bleeding. ID: No known infectious issues. NEUROLOGIC: Denies any focal weakness, numbness, tingling, seizures, headache, TIA or stroke. OTHER: Remainder of the review of systems negative unless otherwise mentioned. PHYSICAL EXAMINATION VITALS: Height is 68 inches, weight 190 pounds. BMI is 28.9. Temperature 98.8, pulse 80, respiratory rate 16, blood pressure currently 144/90. O2 sat 99% on room air. GENERAL: This is a well-nourished, well-developed lady, who is a little bit anxious but in no apparent distress. HEENT: Pupils are equal, round and reactive to light. The extraocular movements are intact. Oropharynx is clear with some slight erythema in the posterior oropharynx. NECK: No elevation of jugular venous pulsation. No carotid bruit. CARDIOVASCULAR: Regular rate and rhythm. Normal S1 and S2. No ectopy. No gallops, murmurs or rubs. LUNGS: Largely clear to auscultation bilaterally. ABDOMEN: Soft. Nontender and nondistended. Normoactive bowel sounds. No hepatosplenomegaly. BACK: No costovertebral angle tenderness. EXTREMITIES: Warm with 2+ bilateral radial pulses, intact pedal pulses, no edema. NEUROLOGIC: Cranial nerves II through XII are intact. Strength is 5/5 and grossly nonfocal. PSYCH: Normal fluent speech. Appropriate affect. A little bit anxious but no depression. LABS: White count 9.8, hemoglobin 14.6, hematocrit 41.5, platelets 231. Sodium 132, potassium 3.0, chloride 97, bicarb 24, BUN 9, creatinine 0.76, glucose 148, calcium 9.7. AST 18, ALT 26, alk phos 45, total protein 7.9, albumin 4.3. TSH is 2.995. Troponin less than 0.001. BNP is less than 10. INR is 0.96. UA shows 21-50 white cells. Influenza screen is negative. Group-A strep screen is positive. Chest x-ray is unremarkable. EKG reveals normal sinus rhythm, normal axis and no ST-T-wave changes. DIAGNOSES 1. Palpitations exacerbated secondary to electrolyte abnormalities. 2. Hypokalemia, likely from gastrointestinal losses. 3. History of recent phentermine use and perhaps stimulant with Mucinex D. 4. Group-A strep pharyngitis. 5. Hypertension, essential. PLAN/RECOMMENDATIONS 1. From a cardiovascular standpoint, we will go ahead and resume her lisinopril therapy for blood pressure. 2. Patient needs antibiotic therapy for her strep pharyngitis. 3. Repeat potassium. 4. Telemetry monitoring. 5. Will check echocardiogram to evaluate the heart structurally. 6. Telemetry monitoring. 7. In terms of her chest pain symptoms, largely atypical for any sort of angina and suspect it is musculoskeletal in origin. Job#: [id number]
[2018-05-22 14:23] LABS: MAGNESIUM 2.2 MG/DL (1.3-2.1); POTASSIUM 3.1 mmol/L (3.5-5.1)
[2018-05-22 15:00] LABS: CREATINE KINASE 42 IU/L (29-168)
[2018-05-22] MEDS ORDERED: LISINOPRIL10 MG PEG (18:01)
[2018-05-22 20:37] VITALS: BP 138/78
[2018-05-22 23:30] VITALS: BP 111/66
[2018-05-23 00:07] LABS: CREATINE KINASE 45 IU/L (29-168)
[2018-05-23 00:30] VITALS: BP 111/66
[2018-05-23 04:41] LABS: BASOPHILS # (AUTO) 0.1 (0.0-0.1); BASOPHILS % 0.5 % (0.0-1.0); EOSINOPHILS # (AUTO) 0.3 (0.0-0.4); EOSINOPHILS % 2.6 % (0.0-6.0); HEMATOCRIT 40.8 % (34.2-44.1); HEMOGLOBIN 14.1 g/dL (12.0-16.0); LYMPHOCYTES # (AUTO) 3.6 (1.0-3.2); LYMPHOCYTES % 29.4 % (18.0-39.1); MEAN CORPUSCULAR HEMOGLOBIN 31.9 pg (28-32); MEAN CORPUSCULAR HGB CONC 34.6 g/dL (31-35); MEAN CORPUSCULAR VOLUME 92.3 fL (81-99); MONOCYTES # (AUTO) 0.8 (0.2-0.8); MONOCYTES % 6.8 % (4.4-11.3); NEUTROPHILS # (AUTO) 7.4 (2.1-6.9); NEUTROPHILS % 60.5 % (38.7-80.0); PLATELET COUNT 232 x10e3/uL (140-360); RED BLOOD COUNT 4.42 x10e6/uL (3.6-5.1); RED CELL DISTRIBUTION WIDTH 12.4 % (11.7-14.4)
[2018-05-23 05:11] LABS: ALANINE AMINOTRANSFERASE 35 IU/L (0-55); ALBUMIN 4.1 g/dL (3.5-5.0); ALBUMIN/GLOBULIN RATIO 1.2 (0.8-2.0); ALKALINE PHOSPHATASE 42 IU/L (40-150); ANION GAP 12.6 mmol/L (8-16); BLOOD UREA NITROGEN 14 mg/dL (7-26); BUN/CREATININE RATIO 18 (6-25); CALCIUM 9.9 mg/dL (8.4-10.2); CARBON DIOXIDE 27 mmol/L (22-29); CHLORIDE 100 mmol/L (98-107); CREATININE, SERUM 0.79 mg/dL (0.57-1.11); EST GLOMERULAR FILTRATION RATE > 60 ML/MIN (60-); GLUCOSE 93 mg/dL (74-118); POTASSIUM 3.6 mmol/L (3.5-5.1); SODIUM 136 mmol/L (136-145)
[2018-05-23 05:26] VITALS: BP 109/64
[2018-05-23 08:03] VITALS: BP 106/57
[2018-05-23 09:00] VITALS: BP 106/57
[2018-05-23] MEDS ORDERED: LISINOPRIL 20 MG TAB PO SCH (09:00)
[2018-05-23] MEDS ORDERED: AZITHROMYCIN 250 MG TAB PO NR (10:00)
[2018-05-23 11:38] VITALS: BP 110/67
--- NOTE | 2018-05-23 13:15 | Discharge Summary ---
HOSPITAL COURSE: Ms. Piña is a 38-year-old female with history of hypertension that was taking phentermine and diuretics 2 weeks prior to admission, came to the emergency room complaining of not feeling good, some chest discomfort, palpitations. She was seen by office communication professor. We are waiting for the results of the echocardiogram. The strep culture came back positive. So, we are going to start her on azithromycin. We are repeating a magnesium level. If the workup comes back negative, patient is going to be able to go home. PHYSICAL EXAM: GENERAL: She is awake and alert. VITAL SIGNS: Temperature is 98.2. Blood pressure 106/57. HEART: Regular rate. LUNGS: Clear to auscultation. ABDOMEN: Soft. BLOOD WORK: Potassium 3.6, creatinine is 0.79. Glucose is 93. White count is 12.1. The last magnesium was 2.4; so, it went down from 4.5. Hemoglobin is 14.1. Hematocrit is 40.8. ASSESSMENT AND PLAN: 1. Uncontrolled hypertension. 2. Atypical chest pain with palpitations. 3. Streptococcus throat. 4. Hypokalemia. 5. Hypermagnesemia. PLAN AT THE PRESENT TIME: To continue blood pressure medications. We are waiting for the echocardiogram results. We are waiting for the repeat magnesium level. We are going to start the patient on azithromycin. If everything gets clear, she is going to be discharged home to continue her home medications on azithromycin for a strep infection, and she is going to have to follow up with me or with her PCP in 1 week. She is to call me or come back to the emergency room if any recurrent problem. Please see home medication reconciliation list. Job#: [id number]
[2018-05-23 16:00] VITALS: BP 102/64
[2018-05-24] MEDS ORDERED: AZITHROMYCIN 250 MG TAB PO SCH (09:00)
== END 2018-05-23 17:50 | disposition home or self-care (01) ==
LOC: ER 05:36 → ERHOLD 07:39 → INTOOBSV 07:39 → MED/SURG2 23:14
PROVIDERS: ADMIT Internal Medicine; ATTEND Internal Medicine
DX: R07.89 Other chest pain (principal); R00.2 Palpitations; R42 Dizziness and giddiness; I10 Essential (primary) hypertension; Z82.49 Family history of ischemic heart disease and other diseases of the circulatory system; E83.41 Hypermagnesemia; E87.6 Hypokalemia; J02.0 Streptococcal pharyngitis; Z90.49 Acquired absence of other specified parts of digestive tract; E66.9 Obesity, unspecified; Z68.32 Body mass index [BMI] 32.0-32.9, adult; K52.9 Noninfective gastroenteritis and colitis, unspecified
CPT/HCPCS: 36415 ×2; 71046; 80053 ×2; 81001; 81025; 82550; 82553; 83518; 83735 ×2; 83880; 84132; 84443; 84484; 85025 ×2; 85610; 85730; 87400; 93005; 93306; 99284; G0378 ×2; J0561; J0696; J1940

== ENCOUNTER 2019-03-06 09:50 | Emergency (ER) | payer BC ==
[~2019-03-06] VITALS: Ht 160 cm; Wt 83.9 kg
[~2019-03-06 09:50] MED LIST: LISINOPRIL10 MG PEG
--- OUTSIDE RECORDS SUMMARY | 2019-03-06 09:53 | XMS REPORT | Continuity of Care Document ---
Author Author [facility] Address Unknown Phone Unavailable Care Team Providers Care Osteopathic Resident Name Role Phone [employer] Unavailable Unavailable Problems Problem Status Onset Date Classification Date Reported Comments Source Body mass index 25-29 - overweight 02/06/2018 Diagnosis 02/06/2018 [facility] Posterior rhinorrhea 02/06/2018 Diagnosis 02/06/2018 [facility] Cough 02/06/2018 Diagnosis 02/06/2018 [facility] Essential hypertension 02/06/2018 Diagnosis 02/06/2018 [facility] Acute pharyngitis 02/06/2018 Diagnosis 02/06/2018 [facility] Hypertensive disorder 02/06/2018 Problem 02/06/2018 [facility] Upper respiratory infection 05/08/2017 Diagnosis 05/08/2017 [facility] Feeling feverish 05/08/2017 Diagnosis 05/08/2017 [facility] Pain in throat 05/08/2017 Diagnosis 05/08/2017 [facility] ACUTE CHOLECYSTITIS Active 11/26/2014 Condition 11/26/2014 [facility] ACUTE CHOLECYSTITIS Active 11/15/2014 [facility]IN Active 11/15/2014 [facility] Discharge Diagnosis: UTI (urinary tract infection) 08/25/2014 08/27/2014 [facility] Discharge Diagnosis: Dysuria 08/25/2014 08/27/2014 [facility] ABDOMINAL PAIN - GENERAL* Active 08/24/2014 [facility] Cyst of ovary (disorder) Resolved Problem 11/20/2014 [facility] Hypertensive disorder, systemic arterial (disorder) Resolved Problem 11/20/2014 [facility] Dyspnea on exertion Active Diagnosis 12/01/2016 [facility] Essential hypertension Active Diagnosis 12/01/2016 [facility] Other insomnia Active Diagnosis 12/01/2016 [facility] Blood in right ear canal Active Problem 12/01/2016 [facility] Anxiety Active Diagnosis 12/01/2016 [facility] Otitis media Active Problem 12/01/2016 [facility] Acute cystitis without hematuria Active Diagnosis 12/01/2016 [facility] Left knee pain Active Problem 12/01/2016 [facility] Low vitamin D level Active Problem 12/01/2016 [facility] BMI 33.0-33.9,adult Active Problem 12/01/2016 [facility] Obesity (BMI 30.0-34.9) Active Problem 12/01/2016 [facility] Other malaise and fatigue Active Problem 12/01/2016 [facility] Tinea corporis Active Problem 12/01/2016 [facility] Hyperlipidemia Active Problem 12/01/2016 [facility] BMI 30.0-30.9,adult Active Problem 12/01/2016 [facility] Obesity (BMI 30-39.9) Active Problem 12/01/2016 [facility] Hx laparoscopic cholecystectomy Active Problem 12/01/2016 [facility] Cholecystitis with cholelithiasis Active Problem 12/01/2016 [facility] Hypertension Active Problem 12/01/2016 [facility] Ovarian cyst Active Problem 12/01/2016 [facility] Dizziness Active Problem 12/01/2016 [facility] Hypertension Active Problem 12/01/2016 [facility] Stress at work Active Problem 12/01/2016 [facility] Muscle cramps Active Problem 12/01/2016 [facility] Hypokalemia Active Diagnosis 08/26/2015 [facility] Leukocytosis Active Diagnosis 03/09/2015 [facility] UTI (urinary tract infection) Active Diagnosis 03/09/2015 [facility] Vaginal discharge Active Diagnosis 06/24/2016 [facility] Rash Active Diagnosis 02/07/2016 [facility] CHOLECYSTITIS NOS Active [facility] Medications Medication Details Route Status Patient Instructions Ordering Provider Order Date Source Paroxetine HCl 1 tablet in the morning Orally Active 20 MG Orally Once a day Bubba 11/30/2016 [facility] Bactrim DS 1 tablet Orally Active 800-160 MG Orally Twice a day Bubba 11/30/2016 [facility] Pyridium 1 tablet after meals Orally Active 200 MG Orally Three times a day Bubba 11/30/2016 [facility] Pyridium 1 tablet after meals Orally Active 100 MG Orally Three times a day Bubba 06/23/2016 [facility] Ciprofloxacin HCl 1 tablet Orally Active 500 MG Orally Twice a day Bubba 06/23/2016 [facility] Metronidazole 1 tablet Orally Active 500 MG Orally Twice a day Bubba 06/23/2016 [facility] Ketoconazole 1 application to affected area Externally Active 2 % Externally Once a day Bubba 06/23/2016 [facility] Hydrocortisone 1 application to affected area Externally Active 2.5 % Externally Twice a day Bubba 02/06/2016 [facility] Ergocalciferol 1 capsule Orally Active 90496 UNIT Orally Once a week Bubba 02/06/2016 [facility] Paroxetine HCl 1 tablet in the morning Orally Active 10 mg Orally Once a day Bubba 08/25/2015 [facility] Amoxicillin-Pot Clavulanate as directed Orally Active 500-125 MG Orally every 12 hrs Bubba 06/06/2015 [facility] Bactrim DS 1 tablet Orally Active 800-160 MG Orally twice a day (bid) Bubba 03/08/2015 [facility] HydrOXYzine HCl as directed Orally Active 10 mg Orally three times a day (tid) as needed (prn) 02/14/2015 [facility] HydrOXYzine HCl as directed Orally Active 25 MG Orally three times a day (tid) as needed (prn) Bubba02/14/2015 [facility] Robaxin 1 tablet Orally Active 500 mg Orally three times a day (tid) as needed (prn) [facility] 02/14/2015 [facility] LISINOPRIL 20 MG TABS 1 tablet daily Active 11/26/2014 [facility] HYDROCHLOROTHIAZIDE 25 MG TABS 1 tablet daily Active 11/26/2014 [facility] ciprofloxacin 500 mg oral tablet 500 mg=1 tab, PO, Q12H, for UTI, X 3 day, # 6 tab, 0 Refill(s)Special Instructions: for UTI Active 11/17/2014 [facility] pantoprazole 40 mg oral enteric coated tablet 40 mg=1 tab, PO, Before Dinner, # 30 tab, 0 Refill(s) Active 11/17/2014 [facility] lisinopril 20 mg oral tablet 20 mg=1 tab, PO, Daily, # 30 tab, 0 Refill(s) Active 11/17/2014 [facility] Hydrochlorothiazide 25 MG Oral Tablet 25 mg=1 tab, PO, Daily, # 30 tab, 0 Refill(s) Active 11/17/2014 [facility] acetaminophen 325 mg oral tablet 650 mg=2 tab, PO, Q6H, PRN Pain Score 1-3, 0 Refill(s) Active 11/17/2014 [facility] docusate sodium 100 mg oral capsule 100 mg=1 cap, PO, BID, 0 Refill(s) Active 11/17/2014 [facility] tramadol hydrochloride 50 MG Oral Tablet 50 mg=1 tab, PO, Q6H, PRN Pain Score 4-6, # 24 tab, 0 Refill(s) Active 11/17/2014 [facility] Tramadol 50 mg, 1 tab, Route: PO, Drug form: TAB, Q6H, Dosing Weight 102.4, kg, PRN Pain Score 1-3, Start date: 11/17/14 10:55:00, Duration: 30 day, Stop date: 12/17/14 10:54:00Notes: Not to exceed 400mg/day. (Same As: Ultram) Inactive 11/17/2014 [facility] Acetaminophen 325 MG / Hydrocodone Bitartrate 10 MG Oral Tablet [[place] 10/325] 1 tab, Route: PO, Drug Form: TAB, Dosing Weight 102.4, kg, Q6H, PRN Pain Score 4-6, Start date: 11/17/14 10:54:00, Duration: 30 day, Stop date: 12/17/14 10:53:00Notes: Do not exceed 4gm/day of acetaminophen. (Same as: [place] 325/10) Inactive 11/17/2014 [facility] Tylenol 650 mg, 2 tab, Route: PO, Drug form: TAB, Q6H, Dosing Weight 102.4, kg, PRN Pain Score 1-3, Start date: 11/17/14 10:54:00, Duration: 30 day, Stop date: 12/17/14 10:53:00Notes: Do not exceed 4 gm/day. (Same as: Tylenol) Inactive 11/17/2014 [facility] potassium chloride 40 mEq, 2 tab, Route: PO, Drug form: ERTAB, ONCE, Dosing Weight 102.4, kg, Start date: 11/17/14 9:38:00, Stop date: 11/17/14 9:38:00Notes: (Same as: K-Dur 20) "Do Not Crush" With food and full glass of water Inactive 11/17/2014 [facility] Prinivil 20 mg, 1 tab, Route: PO, Drug form: TAB, Daily, Start date: 11/17/14 9:00:00, Duration: 30 day, Stop date: 12/16/14 9:00:00Notes: (Same as: Prinivil, Zestril) Inactive 11/17/2014 [facility] Microzide 25 mg, 1 tab, Route: PO, Drug form: TAB, Daily, Start date: 11/17/14 9:00:00, Duration: 30 day, Stop date: 12/16/14 9:00:00Notes: (Same as: Hydrodiuril) With food. Inactive 11/17/2014 [facility] Ofirmev 1,000 mg, 100 mL, Route: IV, Drug form: INJ, Q6H, Dosing Weight 102.4, kg, for > or=50 kg, Start date: 11/16/14 18:00:00, Duration: 1 day, Stop date: 11/17/14 12:00:00Notes: Infuse over 15 minutes Do not exceed 4gm/day of acetaminophen MEDICATION WASTE Product Size: 1000 mg Product Wasted: ___ mg No Longer Active 11/16/2014 [facility] docusate sodium 100 mg oral capsule 100 mg, 1 cap, Route: PO, Drug form: CAP, BID, Dosing Weight 102.4, kg, Start date: 11/16/14 17:00:00, Duration: 30 day, Stop date: 12/16/14 9:00:00Notes: (Same as: Colace) (Do Not Crush) No Longer Active 11/16/2014 [facility] Protonix 40 mg, 1 tab, Route: PO, Drug form: ECTAB, Before Dinner, Dosing Weight 102.4, kg, Start date: 11/16/14 16:30:00, Duration: 30 day, Stop date: 12/15/14 16:30:00Notes: Tablet should not be chewed or crushed. (Same as: Protonix) No Longer Active 11/16/2014 [facility] Ondansetron 4 mg, 2 mL, Route: IVP, Drug form: INJ, ONCE, Dosing Weight 102.4, kg, PRN Nausea & Vomiting, Start date: 11/16/14 12:56:00Notes: (Same as: Zofran) MEDICATION WASTE Product Size: 4 mg Product Wasted: ___ mg Inactive 11/16/2014 [facility] Diphenhydramine 12.5 mg, 0.25 mL, Route: IVP, Drug form: INJ, Q6H, Dosing Weight 102.4, kg, PRN Itching, Start date: 11/16/14 12:56:00, Duration: 30 day, Stop date: 12/16/14 12:55:00Notes: (Same as: Benadryl) Inactive 11/16/2014 [facility] Promethazine 6.25 mg, 0.25 mL, Route: IVPB, ONCE, Dosing Weight 102.4, kg, PRN Nausea & Vomiting, Start date: 11/16/14 12:56:00Notes: Do not give IV push. (Same as: Phenergan) Inactive 11/16/2014 [facility] Meperidine 12.5 mg, 0.25 mL, Route: IVP, Drug form: INJ, Q30Min, Dosing Weight 102.4, kg, PRN Other -See Comment, For shivering, Start date: 11/16/14 12:56:00, Duration: 2 doses or times, Stop date: Limited # of timesNotes: (Same As: Demerol) Inactive 11/16/2014 [facility] Flumazenil 0.2 mg, 2 mL, Route: IVP, Drug form: INJ, PRN, Dosing Weight 102.4, kg, PRN Benzodiazepine Reversal, Initial dose, Start date: 11/16/14 12:56:00, Duration: 30 day, Stop date: 12/16/14 12:55:00Notes: (Same as: Romazicon) Inactive 11/16/2014 [facility] Fentanyl 25 microgram, 0.5 mL, Route: IVP, Drug form: INJ, Q5Min, Dosing Weight 102.4, kg, PRN Pain Score 4-6, Start date: 11/16/14 12:56:00, Duration: 4 doses or times, Stop date: Limited # of timesNotes: (Same as: Sublimaze) Preservative free. Inactive 11/16/2014 [facility] Ketorolac 30 mg, 1 mL, Route: IVP, [...] mg Product Wasted: ___ mg Inactive 11/16/2014 [facility] Naloxone 0.04 mg, 0.1 mL, Route: IVP, Drug form: INJ, Q2MIN, Dosing Weight 102.4, kg, PRN Narcotic Reversal, Start date: 11/16/14 12:56:00, Duration: 8 doses or times, Stop date: Limited # of timesNotes: Same as Narcan Inactive 11/16/2014 [facility] Hydromorphone 0.5 mg, 0.5 mL, Route: IVP, Drug form: INJ, Q5Min, Dosing Weight 102.4, kg, PRN Pain Score 7-10, Start date: 11/16/14 12:56:00, Duration: 4 doses or times, Stop date: Limited # of times Inactive 11/16/2014 [facility] Morphine 2 mg, 1 mL, Route: IVP, Drug form: INJ, Q5Min, Dosing Weight 102.4, kg, PRN Pain Score 4-6, Start date: 11/16/14 12:56:00, Duration: 5 doses or times, Stop date: Limited # of timesNotes: (Same as:MOR Phine Sulfate) Inactive 11/16/2014 [facility] Oxycodone Hydrochloride 1 MG/ML Oral Solution 10 mg, 10 mL, Route: NG, Drug form: LIQ, Q4H, Dosing Weight 102.4, kg, PRN Pain Score 7- 10, Start date: 11/16/14 12:56:00, Duration: 30 day, Stop date: 12/16/14 12:55:00Notes: (Same as: 'Roxicodone) Inactive 11/16/2014 [facility] Calcium Chloride 0.0014 MEQ/ML / Potassium Chloride 0.004 MEQ/ML / Sodium Chloride 0.103 MEQ/ML / Sodium Lactate 0.028 MEQ/ML Injectable Solution 1,000 mL, Rate: 125 ml/hr, Infuse over: 8 hr, Route: IV, Dosing Weight 102.4 kg, Total Volume: 1,000, Start date: 11/16/14 12:56:00, Duration: 30 day, Stop date: 12/16/14 12:55:00 Inactive 11/16/2014 [facility] Oxycodone 10 mg, 2 tab, Route: PO, Drug form: TAB, Q4H, Dosing Weight 102.4, kg, PRN Pain Score 7-10, Start date: 11/16/14 12:56:00, Duration: 30 day, Stop date: 12/16/14 12:55:00Notes: (Same as: Roxicodone) Inactive 11/16/2014 [facility] Acetaminophen 1,000 mg, 100 mL, Route: IVPB, Drug form: INJ, ONCE, Dosing Weight 102.4, kg, PRN Pain Score 1-3, Start date: 11/16/14 12:56:00, Duration: 1 doses or times, Stop date: Limited # of timesNotes: Infuse over 15 minutes Do not exceed 4gm/day of acetaminophen MEDICATION WASTE Product Size: 1000 mg Product Wasted: ___ mg Inactive 11/16/2014 [facility] Sodium Chloride 0.154 MEQ/ML Injectable Solution 1,000 mL, Rate: 125 ml/hr, Infuse over: 8 hr, Route: IV, Dosing Weight 102.4 kg, Total Volume: 1,000, Start date: 11/16/14 12:37:00, Duration: 30 day, Stop date: 12/16/14 12:36:00 No Longer Active 11/16/2014 [facility] Saline Flush 0.9% 10 ml, Route: IVP, Drug Form: INJ, Dosing Weight 102.4, kg, PRN, PRN Line Flush, Start date: 11/16/14 12:37:00, Duration: 30 day, Stop date: 12/16/14 12:36:00Notes: (Same as: BD Posiflush) No Longer Active 11/16/2014 [facility] Morphine 2 mg, 1 mL, Route: IVP, Drug form: INJ, Q3H, Dosing Weight 102.4, kg, PRN Pain Score 4-6, Start date: 11/16/14 12:37:00, Duration: 30 day, Stop date: 12/16/14 12:36:00Notes: (Same as:MORPhine Sulfate) No Longer Active 11/16/2014 [facility] Ondansetron 4 mg, 2 mL, Route: IVP, Drug form: INJ, Q6H, Dosing Weight 102.4, kg, PRN Nausea & Vomiting, Start date: 11/16/14 12:37:00, Duration: 30 day, Stop date: 12/16/14 12:36:00Notes: (Same as: Eva) MEDICATION WASTE Product Size: 4 mg Product Wasted: ___ mg No Longer Active 11/16/2014 [facility] Acetaminophen 325 MG / Hydrocodone Bitartrate 5 MG Oral Tablet 1 tab, Route: PO, Drug Form: TAB, Dosing Weight 102.4, kg, Q4H, PRN Pain Score 1-3, Start date: 11/16/14 12:37:00, Duration: 30 day, Stop date: 12/16/14 12:36:00Notes: (Same as: [place] 325/5) Do not exceed 4gm/day of acetaminophen. No Longer Active 11/16/2014 [facility] Ciprofloxacin 400 mg, 200 mL, Route: IVPB, Drug form: INJ, [id number], Dosing Weight 99.091, kg, Priority: Routine, Start date: 11/16/14 12:00:00, Duration: 1 day, Stop date: 11/17/14 0:00:00Notes: Do not refrigerate No Longer Active 11/16/2014 [facility] Lovenox 40 mg, 0.4 mL, Route: SUB-Q, Drug form: INJ, [id number], Dosing Weight 102.4, kg, Start date: 11/16/14 12:00:00, Duration: 30 day, Stop date: 12/15/14 12:00:00Notes: (Same as: Lovenox) No Longer Active 11/16/2014 [facility] Cefoxitin 2 gm, Route: IVPB, ONCE, Dosing Weight 102.4, kg, Start date: 11/16/14 11:30:00, Stop date: 11/16/14 11:30:00 Inactive 11/16/2014 [facility] Prinivil 10 mg, 1 tab, Route: PO, Drug form: TAB, Daily, Start date: 11/16/14 9:00:00, Duration: 30 day, Stop date: 12/15/14 9:00:00Notes: (Same as: Prinivil, Zestril) Inactive 11/16/2014 [facility] Microzide 12.5 mg, 1 cap, Route: PO, Drug form: CAP, Daily, Start date: 11/16/14 9:00:00, Duration: 30 day, Stop date: 12/15/14 9:00:00Notes: (Same as: Microzide) With food. Inactive 11/16/2014 [facility] Hydrochlorothiazide 12.5 MG / Lisinopril 10 MG Oral Tablet 1 tab, Route: PO, Drug Form: TAB, Dosing Weight 99.091, kg, Daily, Start date: 11/16/14 9:00:00, Duration: 30 day, Stop date: 12/15/14 9:00:00 Inactive 11/16/2014 [facility] Flagyl 500 mg, 100 mL, Route: IVPB, Drug form: INJ, Q8H, Dosing Weight 99.091, kg, Priority: Routine, Start date: 11/16/14 8:00:00, Duration: 1 day, Stop date: 11/17/14 0:00:00Notes: (Same as: Flagyl) Avoid alcohol. No Longer Active 11/16/2014 [facility] Morphine 4 mg, 2 mL, Route: IVP, Drug form: INJ, Q4H, Dosing Weight 99.091, kg, PRN Pain Score 7-10, Start date: 11/16/14 3:16:00, Duration: 30 day, Stop date: 12/16/14 3:15:00Notes: (Same as:MORPhine Sulfate) No Longer Active 11/16/2014 [facility] Ondansetron 4 mg, 2 mL, Route: IVP, Drug form: INJ, Q8H, Dosing Weight 99.091, kg, PRN Nausea & Vomiting, Start date: 11/16/14 3:16:00, Duration: 30 day, Stop date: 12/16/14 3:15:00Notes: (Same as: Zofran) MEDICATION WASTE Product Size: 4 mg Product Wasted: ___ mg No Longer Active 11/16/2014 [facility] Sodium Chloride 0.154 MEQ/ML Injectable Solution 1,000 mL, Rate: 125 ml/hr, Infuse over: 8 hr, Route: IV, Dosing Weight 99.091 kg, Total Volume: 1,000, Start date: 11/16/14 3:16:00, Duration: 30 day, Stop date: 12/16/14 3:15:00 No Longer Active 11/16/2014 [facility] Saline Flush 0.9% 10 ml, Route: IVP, Drug Form: INJ, Dosing Weight 99.091, kg, PRN, PRN Line Flush, Start date: 11/16/14 3:16:00, Duration: 30 day, Stop date: 12/16/14 3:15:00Notes: (Same as: BD Posiflush) No Longer Active 11/16/2014 [facility] Ciprofloxacin 400 mg, Route: IVPB, ONCE, Dosing Weight 99.091, kg, Priority: STAT, Start date: 11/15/14 23:40:00, Stop date: 11/15/14 23:40:00 No Longer Active 11/16/2014 [facility] Metronidazole 500 mg, 100 mL, Route: IVPB, Drug form: INJ, ONCE, Dosing Weight 99.091, kg, Priority: STAT, Start date: 11/15/14 23:40:00, Stop date: 11/15/14 23:40:00Notes: (Same as: Flagyl) Avoid alcohol. No Longer Active 11/16/2014 [facility] Ondansetron 4 mg, 2 mL, Route: IVP, Drug form: INJ, ONCE, Dosing Weight 99.091, kg, Priority: STAT, Start date: 11/15/14 21:09:00, Stop date: 11/15/14 21:09:00Notes: (Same as: Innafran) MEDICATION WASTE Product Size: 4 mg Product Wasted: ___ mg Inactive 11/16/2014 [facility] Famotidine 20 mg, 2 mL, Route: IVP, Drug form: INJ, ONCE, Dosing Weight 99.091, kg, Priority: STAT, Start date: 11/15/14 21:09:00, Stop date: 11/15/14 21:09:00Notes: (Same as: Pepcid) Can be dilute in 5-10cc NS IVP: Slow IV push over at least 2 minutes. Inactive 11/16/2014 [facility] Morphine 4 mg, 2 mL, Route: IVP, Drug form: INJ, ONCE, Dosing Weight 99.091, kg, Priority: STAT, Start date: 11/15/14 21:09:00, Stop date: 11/15/14 21:09:00Notes: (Same as:MORPhine Sulfate) Inactive 11/16/2014 [facility] Sodium Chloride 0.154 MEQ/ML Injectable Solution 1,000 mL, 1000 ml/hr, Infuse Over: 1 hr, Route: IV, 1,000, Drug form: INJ, ONCE, Priority: STAT, Dosing Weight 99.091 kg, Start date: 11/15/14 21:09:00, Duration: 1 doses or times, Stop date: 11/15/14 21:09:00 Inactive 11/16/2014 [facility] Saline Flush 0.9% 10 mL, Route: IVP, Drug Form: INJ, Dosing Weight 99.091, kg, PRN, PRN Line Flush, Start date: 11/15/14 21:09:00, Duration: 30 day, Stop date: 12/15/14 21:08:00Notes: (Same as: BD Posiflush) No Longer Active 11/16/2014 [facility] Lisinopril-Hydrochlorothiazide 1 tablet Orally Active 25-20 MG Orally Once a day Bubba 09/04/2014 [facility] Nitrofurantoin 100 MG Oral Capsule [Macrodantin] 100 mg=1 cap, PO, QID, # 40 cap, 0 Refill(s) Active 08/25/2014 [facility] Amlodipine 5 MG Oral Tablet amlodipine 5 mg tablet TAKE ONE (1) TABLET(S) BY MOUTH ONCE A DAY. Active [facility] benzonatate 200 MG Oral Capsule benzonatate 200 mg capsule Take 1 capsule 3 times a day by oral route as needed. Active [facility] Cholecalciferol 77360 UNT Oral Capsule cholecalciferol (vitamin D3) 50,000 [...] Active 25-20 MG Orally Once a day [facility] HydrOXYzine HCl as directed Orally Active 25 MG Orally three times a day (tid) as needed (prn) [facility] Lupron Depot Unknown NA Active [facility] Paroxetine HCl 1 tablet in the morning Orally Active 20 mg Orally Once a day [facility] Lisinopril-Hydrochlorothiazide 1 tablet Orally Active 25-20 MG Orally Once a day [facility] Lisinopril-Hydrochlorothiazide TAKE ONE (1) TABLET(S) BY MOUTH ONCE A DAY. NA Active 20-25 MG [facility] Allergies, Adverse Reactions, Alerts Substance Category Reaction Severity Reaction type Status Date Reported Comments Source N.K.D.A. Adverse Reaction Info Not Available Adverse Reaction Active 11/30/2016 [facility] Immunizations Immunization Date Given Site Status Last Updated Comments Source Tdap 01/26/2017 completed [facility] FLU SHOT 3 & UP 06/23/2016 completed [facility] Rocephin 02/21/2015 completed [facility] Results Order Name Results Value Reference Range Date Interpretation Comments Source Influenza A negative 02/06/2018 [facility] Influenza B negative 02/06/2018 [facility] RESULT negative 02/06/2018 [facility] SWAB LOCATION Left and Right tonsillar pillars 02/06/2018 [facility] RESULT negative 05/08/2017 [facility] SWAB LOCATION Left and Right tonsillar pillars 05/08/2017 [facility] Influenza A negative 05/08/2017 [facility] Influenza B negative 05/08/2017 [facility] CHEM PANEL Phosphorus 1.7 2.5 - 4.5 11/17/2014 [facility] CHEM PANEL Magnesium Lvl 2.1 1.8 - 2.4 11/17/2014 [facility] ELECTROLYTES Chloride Lvl 105 95 - 109 11/17/2014 [facility] ELECTROLYTES Sodium Lvl 137 135 - 145 11/17/2014 [facility] ELECTROLYTES Potassium Lvl 3.2 3.5 - 5.1 11/17/2014 [facility] ELECTROLYTES eGFR 115 11/17/2014 <sup>1</sup>Result Comment: The eGFR is calculated using the CKD-EPI formula. In most young, healthy individuals the eGFR will be >90 mL/min/1.73m2. The eGFR declines with age. An eGFR of 60-89 may be normal in some populations, particularly the elderly, for whom the CKD-EPI formula has not been extensively validated. Use of the eGFR is not recommended in the following populations:& lt;br/>
Individuals with unstable creatinine concentrations, including patients [...] should be multiplied by the estimated BMI. [facility] ELECTROLYTES Total Protein 6.4 6.4 - 8.4 11/17/2014 [facility] ELECTROLYTES ALT 79 0 - 65 11/17/2014 [facility] Creatinine Lvl 0.7 0.5 - 1.4 11/17/2014 [facility] ELECTROLYTES BUN 6 7 - 22 11/17/2014 [facility] ELECTROLYTES CO2 24 24 - 32 11/17/2014 [facility] ELECTROLYTES Calcium Lvl 7.4 8.5 - 10.5 11/17/2014 [facility] ELECTROLYTES AGAP 11.2 10.0 - 20.0 11/17/2014 [facility] ELECTROLYTES Glucose Lvl 100 70 - 99 11/17/2014 <sup>3</sup>Interpretive Data: Adult reference range values reflect the clinical guidelines
of the [place] [employer]. [facility] ELECTROLYTES Globulin 3.3 2.0 - 4.0 11/17/2014 [facility] ELECTROLYTES A/G Ratio 0.9 0.7 - 1.6 11/17/2014 [facility] ELECTROLYTES Albumin Lvl 3.1 3.5 - 5.0 11/17/2014 [facility] ELECTROLYTES Bili Total 1.6 0.2 - 1.3 11/17/2014 [facility] ELECTROLYTES B/C Ratio 9 6 - 25 11/17/2014 [facility] ELECTROLYTES Alk Phos 41 39 - 136 11/17/2014 [facility] [facility] ELECTROLYTES AST 27 0 - 37 11/17/2014 [facility] HEMATOLOGY Monocytes # 0.7 0.0 - 0.8 11/17/2014 [facility] HEMATOLOGY Basophils 0.2 0.0 - 1.0 11/17/2014 [facility] HEMATOLOGY Eosinophils 0.1 0.0 - 4.0 11/17/2014 [facility] HEMATOLOGY Lymphocytes # 1.9 1.0 - 5.5 11/17/2014 [facility] HEMATOLOGY Segs-Bands # 10.7 1.5 - 8.1 11/17/2014 [facility] HEMATOLOGY Monocytes 5.5 2.0 - 12.0 11/17/2014 [facility] HEMATOLOGY Lymphocytes 14.5 20.0 - 40.0 11/17/2014 [facility] HEMATOLOGY Segs 79.7 45.0 - 75.0 11/17/2014 [facility] HEMATOLOGY MPV 9.6 7.4 - 10.4 11/17/2014 [facility] HEMATOLOGY Platelet 177 133 - 450 11/17/2014 [facility] HEMATOLOGY MCV 93.7 80.0 - 98.0 11/17/2014 [facility] HEMATOLOGY Hct 33.9 36.0 - 48.0 11/17/2014 [facility] HEMATOLOGY MCH 32.1 27.0 - 31.0 11/17/2014 [facility] HEMATOLOGY RDW 13.6 11.5 - 14.5 11/17/2014 [facility] HEMATOLOGY MCHC 34.3 32.0 - 36.0 11/17/2014 [facility] HEMATOLOGY Hgb 11.6 12.0 - 16.0 11/17/2014 [facility] HEMATOLOGY RBC 3.62 4.20 - 5.40 11/17/2014 [facility] HEMATOLOGY WBC 13.4 3.7 - 10.4 11/17/2014 [facility] LIPIDS Chol 92 <=199 mg/dL 11/17/2014 [facility] LIPIDS Trig 62 <=149 mg/dL 11/17/2014 [facility] LIPIDS VLDL 12 11/17/2014 [facility] LIPIDS LDL (Calculated) 24 <=99 mg/dL 11/17/2014 [facility] LIPIDS CHD Risk 1.64 3.90 - 5.80 11/17/2014 [facility] LIPIDS HDL 56 >=61 mg/dL 11/17/2014 [facility] SPECIAL CHEMISTRY Hgb A1C 5.9 <=5.6 % 11/17/2014 [facility] THYROID PANEL TSH 1.310 0.360 - 3.740 11/17/2014 [facility] CHEM PANEL Amylase Lvl 27 25 - 115 11/16/2014 [facility] CHEM PANEL Lipase Lvl 134 73 - 393 11/16/2014 [facility] CHEM PANEL AST 16 0 - 37 11/16/2014 [facility] CHEM PANEL Alk Phos 50 39 - 136 11/16/2014 [facility] CHEM PANEL Glucose Lvl 116 70 - 99 11/16/2014 <sup>4</sup>Interpretive Data: Adult reference range values reflect the clinical guidelines
of the [place] [employer]. [facility] CHEM PANEL Bili Total 1.1 0.2 - 1.3 11/16/2014 [facility] CHEM PANEL BUN 8 7 - 22 11/16/2014 [facility] Total Protein 8.5 6.4 - 8.4 11/16/2014 [facility] CHEM PANEL ALT 33 0 - 65 11/16/2014 [facility] CHEM PANEL eGFR 121 11/16/2014 <sup>2</sup>Result Comment: The eGFR is calculated using the CKD-EPI formula. In most young, healthy individuals the eGFR will be >90 mL/min/1.73m2. The eGFR declines with age. An eGFR of 60-89 may be normal in some populations, particularly the elderly, for whom the CKD-EPI formula has not been extensively validated. Use of the eGFR is not recommended in the following populations:& lt;br/>
Individuals with unstable creatinine concentrations, including patients [...] should be multiplied by the estimated BMI. [facility] CHEM PANEL Potassium Lvl 3.7 3.5 - 5.1 11/16/2014 [facility] CHEM PANEL Sodium Lvl 137 135 - 145 11/16/2014 [facility] CHEM PANEL Creatinine Lvl 0.6 0.5 - 1.4 11/16/2014 [facility] CHEM PANEL Albumin Lvl 4.1 3.5 - 5.0 11/16/2014 [facility] CHEM PANEL Chloride Lvl 104 95 - 109 11/16/2014 [facility] CHEM PANEL CO2 23 24 - 32 11/16/2014 [facility] CHEM PANEL Calcium Lvl 8.6 8.5 - 10.5 11/16/2014 [facility] CHEM PANEL A/G Ratio 0.9 0.7 - 1.6 11/16/2014 [facility] CHEM PANEL Globulin 4.4 2.0 - 4.0 11/16/2014 [facility] CHEM PANEL B/C Ratio 13 6 - 25 11/16/2014 [facility] CHEM PANEL AGAP 13.7 10.0 - 20.0 11/16/2014 [facility] HEMATOLOGY Monocytes # 0.7 0.0 - 0.8 11/16/2014 [facility] HEMATOLOGY Basophils # 0.1 0.0 - 0.2 11/16/2014 [facility] HEMATOLOGY Basophils 0.3 0.0 - 1.0 11/16/2014 [facility] HEMATOLOGY Monocytes 3.2 2.0 - 12.0 11/16/2014 [facility] HEMATOLOGY Lymphocytes # 1.2 1.0 - 5.5 11/16/2014 [facility] HEMATOLOGY Segs 91.4 45.0 - 75.0 11/16/2014 [facility] HEMATOLOGY Lymphocytes 5.1 20.0 - 40.0 11/16/2014 [facility] HEMATOLOGY Segs-Bands # 21.1 1.5 - 8.1 11/16/2014 [facility] HEMATOLOGY WBC 23.1 3.7 - 10.4 11/16/2014 [facility] HEMATOLOGY RBC 4.66 4.20 - 5.40 11/16/2014 [facility] HEMATOLOGY Hgb 14.8 12.0 - 16.0 11/16/2014 [facility] HEMATOLOGY MCV 92.3 80.0 - 98.0 11/16/2014 [facility] HEMATOLOGY MCH 31.8 27.0 - 31.0 11/16/2014 [facility] HEMATOLOGY MCHC 34.5 32.0 - 36.0 11/16/2014 [facility] HEMATOLOGY Hct 43.0 36.0 - 48.0 11/16/2014 [facility] HEMATOLOGY MPV 9.6 7.4 - 10.4 11/16/2014 [facility] HEMATOLOGY RDW 13.6 11.5 - 14.5 11/16/2014 [facility] HEMATOLOGY Platelet 224 133 - 450 11/16/2014 [facility] URINE AND STOOL UA Color Red 11/16/2014 [facility] URINE AND STOOL UA Urobilinogen <=1.0 mg/dL 0.1 - 1.0 11/16/2014 [facility] URINE AND STOOL UA Leuk Est Moderate *ABN* (11/15/14 9:50 PM) Negative 11/16/2014 [facility] URINE AND STOOL UA Nitrite Negative (11/15/14 9:50 PM) Negative 11/16/2014 [facility] URINE AND STOOL UA Blood Large *ABN* (11/15/14 9:50 PM) Negative 11/16/2014 [facility] URINE AND STOOL UA Bili Negative *NA* (11/15/14 9:50 PM) Negative 11/16/2014 [facility] URINE AND STOOL UA Bacteria Occasional /HPF None Seen /HPF 11/16/2014 [facility] URINE AND STOOL UA RBC >182 0 - 2 11/16/2014 [facility] URINE AND STOOL UA WBC 48 0 - 5 11/16/2014 [facility] URINE AND STOOL UA Sq Epi Occasional /LPF Few /LPF 11/16/2014 [facility] URINE AND STOOL UA Protein 100 mg/dL Negative mg/dL 11/16/2014 [facility] URINE AND STOOL UA pH 7.0 5.0 - 8.0 11/16/2014 [facility] URINE AND STOOL UA Spec Grav 1.003 <=1.030 11/16/2014 [facility] URINE AND STOOL UA Turbidity Clear (11/15/14 9:50 PM) Clear 11/16/2014 [facility] URINE AND STOOL UA Ketones Negative mg/dL Negative mg/dL 11/16/2014 [facility] URINE AND STOOL UA Glucose Negative mg/dL Negative mg/dL 11/16/2014 [facility] URINE CHEM U Preg Negative (11/15/14 9:50 PM) Negative 11/16/2014 [facility] URINE AND STOOL UA Urobilinogen <=1.0 mg/dL 0.1 - 1.0 08/25/2014 [facility] URINE AND STOOL UA Color Ltyellow 08/25/2014 [facility] URINE AND STOOL UA Nitrite Negative (08/25/14 1:04 AM) Negative 08/25/2014 [facility] URINE AND STOOL UA Sq Epi Occasional /LPF Few /LPF 08/25/2014 [facility] URINE AND STOOL UA Leuk Est Trace *ABN* (08/25/14 1:04 AM) Negative 08/25/2014 [facility] URINE AND STOOL UA RBC 7 0 - 2 08/25/2014 [facility] URINE AND STOOL UA WBC 9 0 - 5 08/25/2014 [facility] URINE AND STOOL UA Blood Negative (08/25/14 1:04 AM) Negative 08/25/2014 [facility] URINE AND STOOL UA Ketones Negative mg/dL Negative mg/dL 08/25/2014 [facility] URINE AND STOOL UA Bili Negative *NA* (08/25/14 1:04 AM) Negative 08/25/2014 [facility] URINE AND STOOL UA pH 6.0 5.0 - 8.0 08/25/2014 [facility] URINE AND STOOL UA Glucose 50 mg/dL Negative mg/dL 08/25/2014 [facility] URINE AND STOOL UA Protein 30 mg/dL Negative mg/dL 08/25/2014 [facility] URINE AND STOOL UA Turbidity Clear (08/25/14 1:04 AM) Clear 08/25/2014 [facility] URINE AND STOOL UA Spec Grav 1.016 <=1.030 08/25/2014 [facility] URINE CHEM U Preg Negative (08/25/14 1:04 AM) Negative 08/25/2014 [facility] Pathology Reports No Data Provided for This Section Diagnostic Reports Report Value Date Source Abdomen RUQ US PROCEDURE: Abdomen RUQ US [...] infiltration or hepatocellular disease. SL: 14 11/15/2014 [facility] Consultation Notes No Data Provided for This Section Discharge Summaries No Data Provided for This Section History and Physicals No Data Provided for This Section Vital Signs Vital Sign Value Date Comments Source Diastolic (mm Hg) 80 02/06/2018 [facility] Height 68 02/06/2018 [facility] Systolic (mm Hg) 122 02/06/2018 [facility] Weight 183 02/06/2018 [facility] Diastolic (mm Hg) 88 05/08/2017 [facility] Height 68 05/08/2017 [facility] Systolic (mm Hg) 128 05/08/2017 [facility] Weight 200 05/08/2017 [facility] Weight 205.2 11/30/2016 [facility] Height 68 11/30/2016 [facility] Temperature Oral (F) 98.4 F 11/30/2016 [facility] Heart Rate 80 11/30/2016 [facility] Diastolic (mm Hg) 87 11/30/2016 [facility] Systolic (mm Hg) 137 11/30/2016 [facility] Weight 203.0 08/27/2016 [facility] Height 68 08/27/2016 [facility] Temperature Oral (F) 97.8 F 08/27/2016 [facility] Heart Rate 72 08/27/2016 [facility] Diastolic (mm Hg) 75 08/27/2016 [facility] Systolic (mm Hg) 133 08/27/2016 [facility] Weight 207.3 06/23/2016 [facility] Height 68 06/23/2016 [facility] Temperature Oral (F) 98.1 F 06/23/2016 [facility] Heart Rate 103 06/23/2016 [facility] Diastolic (mm Hg) 98 06/23/2016 [facility] Systolic (mm Hg) 150 06/23/2016 [facility] Weight 200.2 02/06/2016 [facility] Height 68 02/06/2016 [facility] Temperature Oral (F) 98.3 F 02/06/2016 [facility] Heart Rate 74 02/06/2016 [facility] Diastolic (mm Hg) 90 02/06/2016 [facility] Systolic (mm Hg) 132 02/06/2016 [facility] Weight 200.7 01/02/2016 [facility] Height 68 01/02/2016 [facility] Temperature Oral (F) 97.9 F 01/02/2016 [facility] Heart Rate 76 01/02/2016 [facility] Diastolic (mm Hg) 80 01/02/2016 [facility] Systolic (mm Hg) 125 01/02/2016 [facility] Weight 196.9 09/05/2015 [facility] Height 68 09/05/2015 [facility] Temperature Oral (F) 98.4 F 09/05/2015 [facility] Heart Rate 88 09/05/2015 [facility] Diastolic (mm Hg) 91 09/05/2015 [facility] Systolic (mm Hg) 131 09/05/2015 [facility] Weight 195.6 08/25/2015 [facility] Height 68 08/25/2015 [facility] Temperature Oral (F) 98.4 F 08/25/2015 [facility] Heart Rate 82 08/25/2015 [facility] Diastolic (mm Hg) 93 08/25/2015 [facility] Systolic (mm Hg) 134 08/25/2015 [facility] Weight 200.8 08/11/2015 [facility] Height 68 08/11/2015 [facility] Temperature Oral (F) 98.6 F 08/11/2015 [facility] Heart Rate 73 08/11/2015 [facility] Diastolic (mm Hg) 83 08/11/2015 [facility] Systolic (mm Hg) 128 08/11/2015 [facility] Weight 204.5 06/06/2015 [facility] Height 68 06/06/2015 [facility] Temperature Oral (F) 98.5 F 06/06/2015 [facility] Heart Rate 92 06/06/2015 [facility] Diastolic (mm Hg) 89 06/06/2015 [facility] Systolic (mm Hg) 138 06/06/2015 [facility] Weight 205.3 02/21/2015 [facility] Height 68 02/21/2015 [facility] Temperature Oral (F) 98.6 F 02/21/2015 [facility] Heart Rate 89 02/21/2015 [facility] Diastolic (mm Hg) 92 02/21/2015 [facility] Systolic (mm Hg) 145 02/21/2015 [facility] Weight 204.1 02/14/2015 [facility] Height 68 02/14/2015 [facility] Temperature Oral (F) 98.6 F 02/14/2015 [facility] Heart Rate 93 02/14/2015 [facility] Diastolic (mm Hg) 91 02/14/2015 [facility] Systolic (mm Hg) 137 02/14/2015 [facility] Height 68 11/26/2014 [facility] Weight 210 11/26/2014 [facility] Temperature Oral (F) 98.9 F 11/26/2014 [facility] Heart Rate 105 11/26/2014 [facility] Systolic (mm Hg) 152 11/26/2014 [facility] Diastolic (mm Hg) 95 11/26/2014 [facility] Temperature Oral (F) 98.6 F 11/17/2014 [facility] Heart Rate 81 11/17/2014 [facility] Respitory Rate 20 11/17/2014 [facility] Diastolic (mm Hg) 86 11/17/2014 [facility] Systolic (mm Hg) 137 11/17/2014 [facility] Systolic (mm Hg) 136 11/17/2014 [facility] Diastolic (mm Hg) 77 11/17/2014 [facility] Respitory Rate 20 11/17/2014 [facility] Heart Rate 79 11/17/2014 [facility] Temperature Oral (F) 98.6 F 11/17/2014 [facility] Respitory Rate 16 11/17/2014 [facility] Heart Rate 73 11/17/2014 [facility] Temperature Oral (F) 98.3 F 11/17/2014 [facility] Systolic (mm Hg) 108 11/17/2014 [facility] Diastolic (mm Hg) 70 11/17/2014 [facility] Height 172.72 cm 11/16/2014 [facility] Weight 102.4 11/16/2014 [facility] BMI Calculated 34.33 11/16/2014 [facility] Height 172.72 cm 11/16/2014 [facility] BMI Calculated 33.22 11/16/2014 [facility] Weight 99.091 11/16/2014 [facility] Height 172.72 cm 11/16/2014 [facility] Temperature Oral (F) 98.7 F 08/25/2014 [facility] Heart Rate 98 08/25/2014 [facility] Respitory Rate 18 08/25/2014 [facility] Systolic (mm Hg) 179 08/25/2014 [facility] Diastolic (mm Hg) 72 08/25/2014 [facility] Temperature Oral (F) 98.7 F 08/25/2014 [facility] Systolic (mm Hg) 184 08/25/2014 [facility] Diastolic (mm Hg) 93 08/25/2014 [facility] Respitory Rate 20 08/25/2014 [facility] Heart Rate 107 08/25/2014 [facility] Respitory Rate 22 08/25/2014 [facility] Heart Rate 105 08/25/2014 [facility] Systolic (mm Hg) 186 08/25/2014 [facility] Diastolic (mm Hg) 108 08/25/2014 [facility] Weight 90.909 08/25/2014 [facility] BMI Calculated 31.39 08/25/2014 [facility] Height 170.18 cm 08/25/2014 [facility] Encounters Location Location Details Encounter Type Encounter Number Reason For Visit Attending Provider ADM Date DC Date Status Source [facility] [id number] Jhony Miller 08/25/2014 08/25/2014 [facility] Primary Care patient here for a ER follow up [id number] 09/04/2014 09/04/2014 [facility] Primary Care patient here for a ER follow up [id number] 09/04/2014 09/04/2014 [facility] Primary Care patient here for a ER follow up [id number] 09/04/2014 09/04/2014 [facility] Primary Care patient here for a ER follow up [id number] 09/04/2014 09/04/2014 [facility] Primary Care patient here for a ER follow up [id number] 09/04/2014 09/04/2014 [facility] Primary Care patient here for a ER follow up [id number] 09/04/2014 09/04/2014 [facility] Primary Care patient here for a ER follow up [id number] 09/04/2014 09/04/2014 [facility] Primary Care patient here for a ER follow up [id number] 09/04/2014 09/04/2014 [facility] Primary Care patient here for a ER follow up [id number] 09/04/2014 09/04/2014 [facility] Primary Care patient here for a ER follow up [id number] 09/04/2014 09/04/2014 [facility] Primary Care patient here for a ER follow up [id number] 09/04/2014 09/04/2014 [facility] OBS Observation Patient [id number] Joy Mac 11/15/2014 11/17/2014 [facility] Primary Care Patient here for a follow up on sx from gallbladder [id number] 11/22/2014 11/22/2014 [facility] Primary Care Patient here for a follow up on sx from gallbladder [id number] 11/22/2014 11/22/2014 [facility] Primary Care Patient here for a follow up on sx from gallbladder [id number] 11/22/2014 11/22/2014 [facility] Primary Care Patient here for a follow up on sx from gallbladder [id number] 11/22/2014 11/22/2014 [facility] Primary Care Patient here for a follow up on sx from gallbladder [id number] 11/22/2014 11/22/2014 [facility] Primary Care Patient here for a follow up on sx from gallbladder [id number] 11/22/2014 11/22/2014 [facility] Primary Care Patient here for a follow up on sx from gallbladder [id number] 11/22/2014 11/22/2014 [facility] Primary Care Patient here for a follow up on sx from gallbladder [id number] 11/22/2014 11/22/2014 [facility] Primary Care Patient here for a follow up on sx from gallbladder [id number] 11/22/2014 11/22/2014 [facility] Primary Care Patient here for a follow up on sx from gallbladder [id number] 11/22/2014 11/22/2014 [facility] Primary Care Patient here for a follow up on sx from gallbladder [id number] 11/22/2014 11/22/2014 [facility] Primary [facility] Primary Care question [id number] 11/22/2014 11/22/2014 [facility] Primary [facility] Care question [id number] 11/22/2014 11/22/2014 [facility] Primary [facility] Primary Care question [id number] 11/22/2014 11/22/2014 [facility] Primary [facility] Primary Care question [id number] 11/22/2014 11/22/2014 [facility] Primary [facility] Primary Care question [id number] 11/22/2014 11/22/2014 [facility] Primary [facility] Care question [id number] 11/22/2014 11/22/2014 [facility] Primary [facility] Primary Care question [id number] 11/22/2014 11/22/2014 [facility] Primary Care question [id number] 11/22/2014 11/22/2014 [facility] question [id number] 11/22/2014 11/22/2014 [facility] Primary Care question [id number] 11/22/2014 11/22/2014 [facility] Primary Care question [id number] 11/22/2014 11/22/2014 [facility] General Surgery 350 Office Visit [id number] Luis A Waters MD 11/26/2014 11/26/2014 [facility] patient here for sick visit,complains of High blood pressure [id number] 02/14/2015 02/14/2015 [facility] Care patient here for sick visit,complains of High blood pressure [id number] 02/14/2015 02/14/2015 [facility] Primary Care patient here for sick visit,complains of High blood pressure [id number] 02/14/2015 02/14/2015 [facility] Primary Care patient here for sick visit,complains of High blood pressure [id number] 02/14/2015 02/14/2015 [facility] Primary Care patient here for sick visit,complains of High blood pressure [id number] 02/14/2015 02/14/2015 [facility] Primary Care patient here for sick visit,complains of High blood pressure [id number] 02/14/2015 02/14/2015 [facility] Primary Care patient here for sick visit,complains of High blood pressure [id number] 02/14/2015 02/14/2015 [facility] Care patient here for sick visit,complains of High blood pressure [id number] 02/14/2015 02/14/2015 [facility] Care patient here for sick visit,complains of High blood pressure [id number] 02/14/2015 02/14/2015 [facility] Care patient here for sick visit,complains of High blood pressure [id number] 02/14/2015 02/14/2015 [facility] patient here for sick visit,complains of High blood pressure [id number] 02/14/2015 02/14/2015 [facility] Care patient here to go over abnormal lab results [id number] 02/21/2015 02/21/2015 [facility] Primary [facility] patient here to go over abnormal lab results [id number] 02/21/2015 02/21/2015 [facility] patient here to go over abnormal lab results [id number] 02/21/2015 02/21/2015 [facility] Care patient here to go over abnormal lab results [id number] 02/21/2015 02/21/2015 [facility] Care patient here to go over abnormal lab results [id number] 02/21/2015 02/21/2015 [facility] Primary Care patient here to go over abnormal lab results [id number] 02/21/2015 02/21/2015 [facility] Primary [facility] Care patient here to go over abnormal lab results [id number] 02/21/2015 02/21/2015 [facility] Primary [facility] patient here to go over abnormal lab results [id number] 02/21/2015 02/21/2015 [facility] Primary [facility] Care patient here to go over abnormal lab results [id number] 02/21/2015 02/21/2015 [facility] Primary Care patient here to go over abnormal lab results [id number] 02/21/2015 02/21/2015 [facility] Primary [facility] Care Referral [id number] 04/23/2015 04/23/2015 [facility] Primary [facility] Care Referral [id number] 04/23/2015 04/23/2015 [facility] Care Referral [id number] 04/23/2015 04/23/2015 [facility] Referral [id number] 04/23/2015 04/23/2015 [facility] Referral [id number] 04/23/2015 04/23/2015 [facility] Referral [id number] 04/23/2015 04/23/2015 [facility] Referral [id number] 04/23/2015 04/23/2015 [facility] Care Referral [id number] 04/23/2015 04/23/2015 [facility] Care Referral [id number] 04/23/2015 04/23/2015 [facility] Patient here with complaints of esr infection [id number] 06/06/2015 06/06/2015 [facility] Patient here with complaints of esr infection [id number] 06/06/2015 06/06/2015 [facility] Patient here with complaints of esr infection [id number] 06/06/2015 06/06/2015 [facility] Patient here with complaints of esr infection [id number] 06/06/2015 06/06/2015 [facility] Patient here with complaints of esr infection [id number] 06/06/2015 06/06/2015 [facility] Patient here with complaints of esr infection [id number] 06/06/2015 06/06/2015 [facility] Patient here with complaints of esr infection [id number] 06/06/2015 06/06/2015 [facility] Patient here with complaints of esr infection [id number] 06/06/2015 06/06/2015 [facility] Patient here with knee fracture [id number] 08/11/2015 08/11/2015 [facility] Patient here with knee fracture [id number] 08/11/2015 08/11/2015 [facility] Patient here with knee fracture [id number] 08/11/2015 08/11/2015 [facility] Patient here with knee fracture [id number] 08/11/2015 08/11/2015 [facility] Patient here with knee fracture [id number] 08/11/2015 08/11/2015 [facility] Patient here with knee fracture [id number] 08/11/2015 08/11/2015 [facility] Patient here with knee fracture [id number] 08/11/2015 08/11/2015 [facility] Patient here to follow up with High blood pressure [id number] 08/25/2015 08/25/2015 [facility] Patient here to follow up with High blood pressure [id number] 08/25/2015 08/25/2015 [facility] Patient here to follow up with High blood pressure [id number] 08/25/2015 08/25/2015 [facility] Patient here to follow up with High blood pressure [id number] 08/25/2015 08/25/2015 [facility] Patient here to follow up with High blood pressure [id number] 08/25/2015 08/25/2015 [facility] Patient here to follow up with High blood pressure [id number] 08/25/2015 08/25/2015 [facility] Patient here for a follow up [id number] 09/05/2015 09/05/2015 [facility] Patient here for a follow up [id number] 09/05/2015 09/05/2015 [facility] Patient here for a follow up [id number] 09/05/2015 09/05/2015 [facility] Patient here for a follow up [id number] 09/05/2015 09/05/2015 [facility] Patient here for a follow up [id number] 09/05/2015 09/05/2015 [facility] Care patient here for physical [id number] 01/02/2016 01/02/2016 [facility] Care patient here for physical [id number] 01/02/2016 01/02/2016 [facility] Care patient here for physical [id number] 01/02/2016 01/02/2016 [facility] Care patient here for physical [id number] 01/02/2016 01/02/2016 [facility] Care patien t here to follow up on medication [id number] 02/06/2016 02/06/2016 [facility] Care frank reddy here to follow up on medication [id number] 02/06/2016 02/06/2016 [facility] Care frank reddy here to follow up on medication [id number] 02/06/2016 02/06/2016 [facility] patient here with complaints of a UTI [id number] 06/23/2016 06/23/2016 [facility] patient here with complaints of a UTI [id number] 06/23/2016 06/23/2016 [facility] Patient here for medication refill [id number] 08/27/2016 08/27/2016 [facility] [place] - [facility] - [id number] JAY TorresP-C: [address] [place] [address], [phone] [id number] Clarence Levy 05/08/2017 [facility] [place] [facility] [id number] Gold Muhammad PA-C: [address] [place] [address], Ph. [id number] Gold Muhammad 02/06/2018 [facility] Procedures Procedure Code Date Perfomer Comments Source Cholecystectomy [facility] Assessment and Plan Assessment and Plan Date Source Extracted from:Title: Clinical Document Author: Joy Mac MD Date: [...] Psychological: no depression, no anxiety, no insomnia Vitals Tmp(F) Pulse BP RR SpO2 FIO2 11/17 08:00 98.6 79 136/77 20 98 --- 11/17 06:39 ---- --- ----- 16 95 21% 11/17 04:46 98.3 73 108/70 16 --- --- 11/17 00:39 98.0 80 117/76 18 --- --- 11/16 21:05 ---- --- ----- 16 95 --- 24 Hr Tmax: 99.3F (37.39c) at 11/16 11:00 Vital Signs are the last 5 in the past 48 hours. I&O Record In Out Bal 11/17 24hr Tot 0 0 0 11/16 24hr Tot [phone] PHYSICAL EXAM: General: [...] BID 11/16/14 enoxaparin (Lovenox) 40 mg SUB-Q [id number] 11/17/14 hydrochlorothiazide (Microzide) 25 mg PO Daily 11/17/14 lisinopril (Prinivil) 20 mg PO Daily 11/16/14 pantoprazole (Protonix) 40 mg PO Before Dinner Unscheduled Meds: None PRN Meds (11): 11/16/14 acetaminophen-hydrocodone (acetaminophen-hydrocodone 325 mg-5 mg oral tablet) 1 tab PO Q4H 11/17/14 acetaminophen-hydrocodone ([place] 10/325 oral tablet) 1 tab PO Q6H [...] ml/hr LABS: 24hr Labs 11/17 0645 Sodium Lvl 137 Potassium Lvl 3.2 L Chloride Lvl 105 CO2 24 AGAP 11.2 Glucose Lvl 100 H Creatinine Lvl 0.7 BUN 6 L B/C Ratio 9 Total Protein 6.4 Albumin Lvl 3.1 L Globulin 3.3 A/G Ratio 0.9 Calcium Lvl 7.4 L ALT 79 H AST 27 Alk Phos 41 Bili Total 1.6 H eGFR 115 Chol 92 Trig 62 HDL 56 L LDL (Calculated) 24 VLDL 12 CHD Risk 1.64 L Magnesium Lvl 2.1 Phosphorus 1.7 L TSH 1.310 WBC 13.4 H RBC 3.62 L Hgb 11.6 L Hct 33.9 L MCV 93.7 MCH 32.1 H MCHC 34.3 RDW 13.6 Platelet 177 MPV 9.6 Segs 79.7 H Monocytes 5.5 Lymphocytes 14.5 L Eosinophils 0.1 Basophils 0.2 Segs-Bands # 10.7 H Lymphocytes # 1.9 Monocytes # 0.7 11/16 1103 Glucose POC 106 H ASSESSMENT and PLAN: 1. Cardiovascular: hypertension. BP better today. [...] Heme/Onc: no anemia at this time. H and H stable. will continue to monitor 9. : ruptured ovarian cyst and vaginal bleeding due to patient's monthly menstrual cycle. Receiver Setter Dr Grant consulted who ordered a pelvic USG. However, pt states that she wants to go home and can follow up outpatient with Dr Grant for pelvic USG 10. GI/DVT prophylaxis: 11. will discharge home today Extracted from:Title: Clinical Document Author: Luis A Waters MD [...] 34 year old lady that presented to [facility] with abdominal pain. At this time, the [...] was closed using 0 Vicryl in a lgxkam-ok-vhcyd manner, and the skin was closed using 4-0 Monocryl in running subcuticular manner. The skin and three 5-mm ports were closed using 4-0 Monocryl in simple U-stitch manner. The patient was extubated in the operating room and transferred to recovery in stable condition. All instrument and laparotomy counts were correct. 11/17/2014 [facility] Plan of Care No Data Provided for This Section Social History Social History Date Source Smoking Status Never Smoker 05/08/2017 [facility] Social History ElementQualifiersDate Reported Tobacco Use: . Are you a: [...] often? Once per month August 27, 2016 08/27/2016 [facility] Social History TypeResponse Smoking Status Never smoker; Exposure to Tobacco Smoke None; Cigarette Smoking Last 365 Days No; Reg Smoking Cessation Counseling No 11/16/2014 [facility] Family History Value Date Source QualifierDescriptionCommentDate Reported Maternal Grandmother Comment not available Jun [...] Other: Comment not available Jun 23, 2016 06/24/2016 [facility] QualifierDescriptionCommentDate Reported Maternal Grandmother Comment not available Feb [...] Other: Comment not available Feb 06, 2016 02/07/2016 [facility] QualifierDescriptionCommentDate Reported Maternal Grandmother Comment not available Jun [...] Other: Comment not available Jun 06, 2015 06/07/2015 [facility] QualifierDescriptionCommentDate Reported Maternal Grandmother Comment not available Feb [...] Other: Comment not available Feb 21, 2015 03/09/2015 [facility] QualifierDescriptionCommentDate Reported Maternal Grandmother Comment not available Feb [...] Other: Comment not available Feb 14, 2015 02/15/2015 [facility] Advance Directives No Data Provided for This Section Functional Status No Data Provided for This Section
[2019-03-06] MEDS ORDERED: SODIUM CHLORIDE 0.9% 1000ML 1,000 ML IV STA (09:59)
[2019-03-06 10:52] LABS: BILIRUBIN,URINE NEGATIVE (NEGATIVE); CLARITY,URINE CLEAR (CLEAR); COLOR,URINE YELLOW (YELLOW); KETONES,URINE NEGATIVE (NEGATIVE); LEUKOCYTE ESTERASE ,URINE MODERATE (NEGATIVE); NITRITE,URINE NEGATIVE (NEGATIVE); PROTEIN,URINE DIPSTICK NEGATIVE (NEGATIVE); URINE UROBILINOGEN 0.2 mg/dL (0.2 - 1)
[2019-03-06 10:54] LABS: BASOPHILS % 0.3 % (0.0-1.0); EOSINOPHILS # (AUTO) 0.1 (0.0-0.4); EOSINOPHILS % 0.6 % (0.0-6.0); HEMATOCRIT 41.9 % (34.2-44.1); HEMOGLOBIN 14.2 g/dL (12.0-16.0); LYMPHOCYTES # (AUTO) 3.6 (1.0-3.2); MEAN CORPUSCULAR HEMOGLOBIN 31.3 pg (28-32); MEAN CORPUSCULAR HGB CONC 33.9 g/dL (31-35); MEAN CORPUSCULAR VOLUME 92.3 fL (81-99); MONOCYTES # (AUTO) 0.5 (0.2-0.8); NEUTROPHILS % 54.6 % (38.7-80.0); PLATELET COUNT 211 x10e3/uL (140-360); RED BLOOD COUNT 4.54 x10e6/uL (3.6-5.1); RED CELL DISTRIBUTION WIDTH 12.7 % (11.7-14.4)
[2019-03-06 11:18] LABS: ALANINE AMINOTRANSFERASE 15 IU/L (0-55); ALBUMIN 4.3 g/dL (3.5-5.0); ALBUMIN/GLOBULIN RATIO 1.2 (0.8-2.0); ALKALINE PHOSPHATASE 37 IU/L (40-150); ANION GAP 13.6 mmol/L (8-16); BLOOD UREA NITROGEN 10 mg/dL (7-26); BUN/CREATININE RATIO 14 (6-25); CALCIUM 9.5 mg/dL (8.4-10.2); CARBON DIOXIDE 23 mmol/L (22-29); CHLORIDE 105 mmol/L (98-107); EST GLOMERULAR FILTRATION RATE > 60 ML/MIN (60-); GLUCOSE 93 mg/dL (74-118); POTASSIUM 3.6 mmol/L (3.5-5.1); SODIUM 138 mmol/L (136-145)
[2019-03-06 11:19] LABS: BACTERIA,URINE FEW /HPF; EPITHELIAL CELLS,URINE FEW /LPF; RBC,URINE 21-50 /HPF (0-5); WBC,URINE (MAN) 21-50 /HPF (0-5)
[2019-03-06] MEDS ORDERED: CEFTRIAXONE SOD 1 GM/NS 50 ML 50 ML IV ONE ×2 (11:30→12:58)
--- NOTE | 2019-03-06 12:02 | Diagnostic Imaging Report ---
EXAM: US OB TRANSVAG 1ST TRI SINGLE DATE: 03/06/2019 9:59 AM INDICATION: Vaginal bleeding COMPARISON: None TECHNIQUE: Transvaginal sonographic images of the pelvis were obtained using sparks scale and color doppler. Transvaginal imaging was medically necessary to better evaluate the fetus. G 1P A LMP 01/25/2019 Clinical gestational age: 5w5d FINDINGS: UTERUS: 7.8 cm, anteverted Normal appearance of the cervix. A nabothian cyst is noted. No uterine masses. GESTATIONAL SAC: Normal appearance of intrauterine gestational sac. Mean gestational sac diameter measures 0.8 cm, corresponding to gestational age of 5 weeks 3 days. A 1.5 mm yolk sac is identified but a pole is not yet visible. No evidence of a subchorionic hemorrhage. YOLK SAC: Visualized EMBRYO/FETUS: Not visible. RIGHT OVARY: Absent. No abnormal cysts or masses. LEFT OVARY: 5.0 x 2.1 x 2.6 cm, containing a 3.5 x 2.1 x 2.1 cm oval anechoic structure. CUL-DE-SAC: No free fluid. IMPRESSION: 1. Small intrauterine gestational sac with embryo not yet visible. Recommend serial beta-hCGs and short-term follow-up exam if clinically indicated. 2. Simple appearing left ovarian cyst, probable corpus luteum cyst. 3. Status post right oophorectomy Signed by: Yobani Moura on 03/06/2019 11:58 AM
--- NOTE | 2019-03-06 13:42 | NUR ---
PATIENT AWAKE AND ALERT SITTING IN BED. RESP EVEN AND UNLABORED. SKIN WARM AND DRY. NO SIGNS OF ACUTE DISTRESS NOTED AT THIS TIME. DENIES ANY C/O AT THIS TIME.
[2019-03-06 14:19] VITALS: BP 130/81
== END 2019-03-06 14:37 | disposition home or self-care (01) ==
LOC: ER 09:50
DX: O20.9 Hemorrhage in early pregnancy, unspecified (principal); O34.81 Maternal care for other abnormalities of pelvic organs, first trimester; N83.202 Unspecified ovarian cyst, left side
CPT/HCPCS: 36415; 76817; 80053; 81001; 84702; 85025; 86850; 86900; 87086; 99283; J0696; J7030

== ENCOUNTER 2021-09-14 21:52 | Emergency (ER) | payer BC ==
[~2021-09-14] VITALS: Ht 160 cm; Wt 83.9 kg
[2021-09-14 22:42] LABS: BASOPHILS # (AUTO) 0.1 (0.0-0.1); BASOPHILS % 0.8 % (0.0-1.0); EOSINOPHILS # (AUTO) 0.1 (0.0-0.4); EOSINOPHILS % 1.6 % (0.0-6.0); HEMOGLOBIN 13.9 g/dL (12.0-16.0); LYMPHOCYTES # (AUTO) 3.1 (1.0-3.2); LYMPHOCYTES % 42.7 % (18.0-39.1); MEAN CORPUSCULAR HGB CONC 34.8 g/dL (31-35); MEAN CORPUSCULAR VOLUME 89.3 fL (81-99); MONOCYTES # (AUTO) 0.5 (0.2-0.8); MONOCYTES % 6.4 % (4.4-11.3); NEUTROPHILS # (AUTO) 3.5 (2.1-6.9); NEUTROPHILS % 48.2 % (38.7-80.0); PLATELET COUNT 225 x10e3/uL (140-360); RED BLOOD COUNT 4.48 x10e6/uL (3.6-5.1); RED CELL DISTRIBUTION WIDTH 12.1 % (11.7-14.4)
[2021-09-14 22:43] LABS: CLARITY,URINE SL CLOUDY (CLEAR); COLOR,URINE YELLOW (YELLOW); LEUKOCYTE ESTERASE ,URINE SMALL (NEGATIVE); NITRITE,URINE NEGATIVE (NEGATIVE)
[2021-09-14 22:44] LABS: KETONES,URINE NEGATIVE (NEGATIVE); PROTEIN,URINE DIPSTICK NEGATIVE (NEGATIVE); URINE UROBILINOGEN 0.2 mg/dL (0.2 - 1)
[2021-09-14 22:50] LABS: BACTERIA,URINE FEW /HPF; EPITHELIAL CELLS,URINE MODERATE /LPF
[2021-09-14 22:55] LABS: PROTHROMBIN TIME 14.1 seconds (11.9-14.5)
[2021-09-14 22:56] LABS: PARTIAL THROMBOPLASTIN TIME 30.3 seconds (23.8-35.5)
[2021-09-14 23:05] LABS: ALANINE AMINOTRANSFERASE 17 IU/L (0-55); ALBUMIN 4.2 g/dL (3.5-5.0); ALBUMIN/GLOBULIN RATIO 1.2 (0.8-2.0); ALKALINE PHOSPHATASE 48 IU/L (40-150); ANION GAP 12.6 mmol/L (8-16); BLOOD UREA NITROGEN 10 mg/dL (7-26); BUN/CREATININE RATIO 13 (6-25); CALCIUM 9.3 mg/dL (8.4-10.2); CARBON DIOXIDE 24 mmol/L (22-29); CHLORIDE 104 mmol/L (98-107); CREATINE KINASE 81 IU/L (29-168); EST GLOMERULAR FILTRATION RATE 80 ML/MIN (60-); GLUCOSE 160 mg/dL (74-118); POTASSIUM 3.6 mmol/L (3.5-5.1); SODIUM 137 mmol/L (136-145)
[2021-09-15] MEDS ORDERED: KETOROLAC TROMETHAMINE 30 MG/ML VIAL IV STA (00:37)
[2021-09-15] MEDS ORDERED: METOCLOPRAMIDE HCL 10 MG/2ML VIAL IV ONE (00:45)
[2021-09-15] MEDS ORDERED: IBUPROFEN800 MG PO (00:56)
[2021-09-15 01:26] VITALS: BP 118/72
== END 2021-09-15 01:24 | disposition home or self-care (01) ==
LOC: ER 22:09
DX: I10 Essential (primary) hypertension (principal); G43.909 Migraine, unspecified, not intractable, without status migrainosus
CPT/HCPCS: 36415; 70450; 71045; 80053; 81001; 82550; 82553; 83880; 84484; 85025; 85610; 85730; 93005; 99284